=== PATIENT | female | born 1965 | race Caucasian/White ===

== ENCOUNTER 2021-12-12 14:57 | Emergency (ER) | payer MEDICARE ==
[~2021-12-12] VITALS: Ht 170.2 cm; Wt 90.7 kg
[2021-12-12] MEDS ORDERED: SODIUM CHLORIDE FLUSH 10 ML SYR IV PRN (15:15)
[2021-12-12 16:08] LABS: BASOPHILS % 0.5 % (0.0-1.0); EOSINOPHILS # (AUTO) 0.1 (0.0-0.4); HEMATOCRIT 33.6 % (34.2-44.1); HEMOGLOBIN 9.3 g/dL (12.0-16.0); LYMPHOCYTES # (AUTO) 0.7 (1.0-3.2); LYMPHOCYTES % 11.8 % (18.0-39.1); MEAN CORPUSCULAR HEMOGLOBIN 23.5 pg (28-32); MEAN CORPUSCULAR HGB CONC 27.7 g/dL (31-35); MEAN CORPUSCULAR VOLUME 85.1 fL (81-99); MONOCYTES # (AUTO) 0.3 (0.2-0.8); NEUTROPHILS # (AUTO) 4.5 (2.1-6.9); NEUTROPHILS % 80.3 % (38.7-80.0); PLATELET COUNT 268 x10e3/uL (140-360); RED BLOOD COUNT 3.95 x10e6/uL (3.6-5.1); RED CELL DISTRIBUTION WIDTH 18.4 % (11.7-14.4)
[2021-12-12 16:15] LABS: INR 1.05; PROTHROMBIN TIME 14.7 seconds (11.9-14.5)
[2021-12-12 16:16] LABS: PARTIAL THROMBOPLASTIN TIME 29.9 seconds (23.8-35.5)
[2021-12-12 16:22] LABS: ALBUMIN 2.6 g/dL (3.5-5.0); ANION GAP 15.5 mmol/L (8-16); CALCIUM 8.2 mg/dL (8.4-10.2); CREATININE, SERUM 2.11 mg/dL (0.57-1.11); POTASSIUM 3.5 mmol/L (3.5-5.1)
[2021-12-12 16:23] LABS: ALBUMIN/GLOBULIN RATIO 0.6 (0.8-2.0)
[2021-12-12 19:12] VITALS: BP 158/90
== END 2021-12-12 19:13 ==
LOC: ER 15:06
DX: R60.9 Edema, unspecified (principal); E11.65 Type 2 diabetes mellitus with hyperglycemia; I10 Essential (primary) hypertension; F41.9 Anxiety disorder, unspecified
CPT/HCPCS: 36415; 80053; 85025; 85610; 85730; 93931; 93971; 94760; 99284

== ENCOUNTER 2021-12-26 14:55 | Inpatient (IN) | payer MEDICARE ==
[~2021-12-26] VITALS: Ht 172.7 cm; Wt 121.1 kg
[2021-12-26] MEDS ORDERED: FUROSEMIDE INJ 10 MG/ML 4 ML VIAL IV ONE (15:15)
[2021-12-26] MEDS ORDERED: Vancomycin IV 1 GM in SODIUM CHLORIDE 0.9% 250ML 250 ML IV SCH (15:45)
[2021-12-26 16:10] LABS: BASOPHILS % 0.3 % (0.0-1.0); EOSINOPHILS # (AUTO) 0.1 (0.0-0.4); EOSINOPHILS % 1.8 % (0.0-6.0); HEMATOCRIT 28.8 % (34.2-44.1); HEMOGLOBIN 8.1 g/dL (12.0-16.0); LYMPHOCYTES # (AUTO) 0.6 (1.0-3.2); LYMPHOCYTES % 9.1 % (18.0-39.1); MEAN CORPUSCULAR HEMOGLOBIN 23.6 pg (28-32); MEAN CORPUSCULAR HGB CONC 28.1 g/dL (31-35); MONOCYTES # (AUTO) 0.4 (0.2-0.8); MONOCYTES % 5.8 % (4.4-11.3); NEUTROPHILS # (AUTO) 5.2 (2.1-6.9); NEUTROPHILS % 82.8 % (38.7-80.0); PLATELET COUNT 260 x10e3/uL (140-360); RED BLOOD COUNT 3.43 x10e6/uL (3.6-5.1); RED CELL DISTRIBUTION WIDTH 19.2 % (11.7-14.4)
[2021-12-26 16:19] LABS: INR 1.19; PROTHROMBIN TIME 16.1 seconds (11.9-14.5)
[2021-12-26 16:20] LABS: PARTIAL THROMBOPLASTIN TIME 31.5 seconds (23.8-35.5)
[2021-12-26 16:27] LABS: ALBUMIN 2.3 g/dL (3.5-5.0); ALBUMIN/GLOBULIN RATIO 0.5 (0.8-2.0); CALCIUM 8.5 mg/dL (8.4-10.2); CREATININE, SERUM 1.93 mg/dL (0.57-1.11)
[2021-12-26 17:05] LABS: CLARITY,URINE CLOUDY (CLEAR); COLOR,URINE YELLOW (YELLOW); KETONES,URINE NEGATIVE (NEGATIVE); LEUKOCYTE ESTERASE ,URINE LARGE (NEGATIVE); NITRITE,URINE NEGATIVE (NEGATIVE); PROTEIN,URINE DIPSTICK 2+ (NEGATIVE); URINE UROBILINOGEN 0.2 mg/dL (0.2 - 1)
[2021-12-26 17:07] LABS: AMORPHOUS SEDIMENT,URINE MODERATE (FEW); BACTERIA,URINE MANY /HPF; EPITHELIAL CELLS,URINE RARE /LPF
[2021-12-26] MEDS ORDERED: ONDANSETRON HCL INJ 2MG/ML 2ML 2 MG/ML VIAL IV PRN (18:00)
[2021-12-26] MEDS ORDERED: ACETAMINOPHEN 325 MG TAB PO PRN (18:30)
[2021-12-26] MEDS ORDERED: DEXTROSE 50% SYRINGE 50 ML IV PRN (18:30)
[2021-12-26] MEDS: LINEZOLID 600 MG/D5W 300ML 300 ML IV SCH (19:20)
[2021-12-26] MEDS: HEPARIN SOD (PORCINE) 5,000 UNIT/ML VIAL SC SCH (19:22)
[2021-12-26] MEDS: FUROSEMIDE INJ 10 MG/ML 4 ML VIAL IV SCH (20:55)
[2021-12-26] MEDS: INSULIN REGULAR, HUMAN 100 UNIT/1 ML SQ SCH (21:00)
[2021-12-27 06:28] LABS: BASOPHILS % 0.4 % (0.0-1.0); EOSINOPHILS # (AUTO) 0.1 (0.0-0.4); EOSINOPHILS % 1.8 % (0.0-6.0); HEMATOCRIT 28.8 % (34.2-44.1); HEMOGLOBIN 8.4 g/dL (12.0-16.0); LYMPHOCYTES # (AUTO) 0.6 (1.0-3.2); LYMPHOCYTES % 7.9 % (18.0-39.1); MEAN CORPUSCULAR HGB CONC 29.2 g/dL (31-35); MEAN CORPUSCULAR VOLUME 82.3 fL (81-99); MONOCYTES # (AUTO) 0.4 (0.2-0.8); MONOCYTES % 5.9 % (4.4-11.3); NEUTROPHILS % 83.7 % (38.7-80.0); PLATELET COUNT 266 x10e3/uL (140-360)
[2021-12-27 06:48] LABS: ALBUMIN 2.3 g/dL (3.5-5.0); ALBUMIN/GLOBULIN RATIO 0.5 (0.8-2.0); CALCIUM 8.5 mg/dL (8.4-10.2); CREATININE, SERUM 1.92 mg/dL (0.57-1.11)
[2021-12-27] MEDS: INSULIN REGULAR, HUMAN 100 UNIT/1 ML SQ SCH ×4 (07:30→21:00)
[2021-12-27] MEDS: FUROSEMIDE INJ 10 MG/ML 4 ML VIAL IV SCH ×2 (10:08→21:55)
[2021-12-27] MEDS: HEPARIN SOD (PORCINE) 5,000 UNIT/ML VIAL SC SCH ×2 (10:09→22:00)
[2021-12-27] MEDS: ALBUTEROL/IPRATROPIUM 3 ML NEB NEB PRN (11:12)
[2021-12-27 12:50] LABS: ANISOCYTOSIS MODERATE; HYPOCHROMASIA MODERATE; OVALOCYTES FEW; PLATELET ESTIMATE ADEQUATE; PLATELET MORPHOLOGY COMMENT FEW LARGE; RBC MORPHOLOGY COMMENT ABNORMAL
[2021-12-27] MEDS ORDERED: VELTASSA8.4 GM PO (17:24)
[2021-12-27] MEDS ORDERED: ELIQUIS2.5 MG PO (17:24)
[2021-12-27] MEDS ORDERED: LEVOTHYROXINE25 MC1 PO (17:24)
[2021-12-27] MEDS ORDERED: ATENOLOL50 MG PO (17:24)
[2021-12-27] MEDS: LINEZOLID 600 MG/D5W 300ML 300 ML IV SCH (18:24)
[2021-12-27 22:44] VITALS: BP 115/60
[2021-12-27 23:00] VITALS: BP_SYST 115; BP_SYST 118; BP_DIAS 60; BP_DIAS 61
[2021-12-28] VITALS (26 sets, daily range): BP systolic 76–129; BP diastolic 51–78
[2021-12-28] MEDS ORDERED: CLONAZEPAM1 MG PO (02:13)
[2021-12-28] MEDS ORDERED: CLOPIDOGREL75 MG PO (02:13)
[2021-12-28] MEDS ORDERED: METOPROLOL TART25 MG PO (02:13)
[2021-12-28] MEDS ORDERED: FUROSEMIDE40 MG PO (02:13)
[2021-12-28] MEDS ORDERED: ACIDOPHILUS1 EAC1 PO (02:13)
[2021-12-28] MEDS ORDERED: FEROSUL325 MG PO (02:13)
[2021-12-28] MEDS ORDERED: SERTRALINE HCL100 MG PO (02:13)
[2021-12-28] MEDS ORDERED: DIPHENHYDRAMINE25 MG PO (02:13)
[2021-12-28] MEDS ORDERED: SEROQUEL50 MG PO (02:13)
[2021-12-28] MEDS ORDERED: QUESTRAN PACKET4 GM PO (02:13)
[2021-12-28] MEDS ORDERED: NEURONTIN100 MG PO (02:13)
[2021-12-28] MEDS ORDERED: TYLENOL EXTRA500 MG PO (02:13)
[2021-12-28] MEDS ORDERED: ATORVASTATIN CA20 MG PO (02:13)
[2021-12-28] MEDS ORDERED: ULTRAM50 MG PO (02:13)
[2021-12-28] MEDS ORDERED: SODIUM BICARBO650 MG PO (02:13)
[2021-12-28] MEDS ORDERED: DOCUSATE SODIU100 MG PO (02:13)
[2021-12-28] MEDS: LINEZOLID 600 MG/D5W 300ML 300 ML IV SCH (06:16)
[2021-12-28] MEDS: INSULIN REGULAR, HUMAN 100 UNIT/1 ML SQ SCH ×4 (07:30→21:00)
[2021-12-28 07:42] LABS: ALBUMIN 2.3 g/dL (3.5-5.0); ALBUMIN/GLOBULIN RATIO 0.5 (0.8-2.0); ANION GAP 17.9 mmol/L (8-16); CALCIUM 8.8 mg/dL (8.4-10.2); CHOL/HDL RATIO 3.1 (3.0-3.6); CREATININE, SERUM 1.88 mg/dL (0.57-1.11); MAGNESIUM 1.7 MG/DL (1.3-2.1); POTASSIUM 3.9 mmol/L (3.5-5.1)
[2021-12-28] MEDS: FUROSEMIDE INJ 10 MG/ML 4 ML VIAL IV SCH ×3 (08:47→21:00)
[2021-12-28] MEDS: HEPARIN SOD (PORCINE) 5,000 UNIT/ML VIAL SC SCH ×2 (08:51→21:52)
[2021-12-28] MEDS: ALBUTEROL/IPRATROPIUM 3 ML NEB NEB PRN (11:25)
[2021-12-28] MEDS ORDERED: VANCOMYCIN HCL 125 MG CAPSULE PO SCH (12:00)
[2021-12-28] MEDS ORDERED: ACETAMINOPHEN 1000 MG/100 ML IV PRN (12:30)
[2021-12-28] MEDS ORDERED: FUROSEMIDE INJ 10 MG/ML 4 ML VIAL IV SCH (14:00)
[2021-12-28] MEDS: GABAPENTIN 100 MG CAP PO SCH ×2 (15:42→21:49)
[2021-12-28] MEDS: LACTOBACILLUS ACIDOPHILUS CAPSULE PO SCH ×2 (15:43→21:49)
[2021-12-28] MEDS: PANTOPRAZOLE SOD 40 MG TABEC PO SCH (15:43)
[2021-12-28] MEDS: SODIUM BICARBONATE 650 MG TAB PO SCH (17:50)
[2021-12-28] MEDS: CEFTRIAXONE 2 GM in SODIUM CHLORIDE 0.9% 100 ML IV SCH (17:50)
[2021-12-28] MEDS: CLONAZEPAM 1 MG TAB PO PRN (20:09)
[2021-12-28] MEDS: ONDANSETRON HCL INJ 2MG/ML 2ML 2 MG/ML VIAL IV PRN (21:37)
[2021-12-28] MEDS: ATORVASTATIN 40 MG TAB PO SCH (21:49)
[2021-12-28] MEDS: QUETIAPINE FUMARATE 25 MG TAB PO SCH (21:51)
[2021-12-28] MEDS: LOPERAMIDE HCL 2 MG CAP PO PRN (21:55)
[2021-12-29] VITALS (11 sets, daily range): BP systolic 92–133; BP diastolic 57–84
[2021-12-29 06:54] LABS: BASOPHILS % 0.5 % (0.0-1.0); EOSINOPHILS # (AUTO) 0.1 (0.0-0.4); EOSINOPHILS % 1.6 % (0.0-6.0); HEMATOCRIT 26.8 % (34.2-44.1); HEMOGLOBIN 7.5 g/dL (12.0-16.0); LYMPHOCYTES # (AUTO) 0.8 (1.0-3.2); LYMPHOCYTES % 12.9 % (18.0-39.1); MEAN CORPUSCULAR VOLUME 85.6 fL (81-99); MONOCYTES # (AUTO) 0.3 (0.2-0.8); MONOCYTES % 4.8 % (4.4-11.3); NEUTROPHILS # (AUTO) 5.1 (2.1-6.9); NEUTROPHILS % 79.7 % (38.7-80.0); PLATELET COUNT 282 x10e3/uL (140-360); RED BLOOD COUNT 3.13 x10e6/uL (3.6-5.1); RED CELL DISTRIBUTION WIDTH 18.9 % (11.7-14.4)
[2021-12-29 07:18] LABS: ANION GAP 19.7 mmol/L (8-16); CALCIUM 8.2 mg/dL (8.4-10.2); CREATININE, SERUM 2.03 mg/dL (0.57-1.11); POTASSIUM 3.7 mmol/L (3.5-5.1)
[2021-12-29] MEDS: INSULIN REGULAR, HUMAN 100 UNIT/1 ML SQ SCH ×4 (07:30→21:40)
[2021-12-29 08:51] LABS: ANISOCYTOSIS SLIG; HYPOCHROMASIA MODERATE; POIKILOCYTOSIS SLIGHT; RBC MORPHOLOGY COMMENT ABNORMAL
[2021-12-29 08:52] LABS: PLATELET ESTIMATE ADEQUATE; PLATELET MORPHOLOGY COMMENT NORMAL
[2021-12-29] MEDS: GABAPENTIN 100 MG CAP PO SCH ×3 (09:00→21:25)
[2021-12-29] MEDS: FUROSEMIDE INJ 10 MG/ML 4 ML VIAL IV SCH ×2 (09:00→21:38)
[2021-12-29] MEDS: HEPARIN SOD (PORCINE) 5,000 UNIT/ML VIAL SC SCH ×2 (09:00→21:38)
[2021-12-29] MEDS: CLOPIDOGREL BISULFATE 75 MG TAB PO SCH (09:13)
[2021-12-29] MEDS: LACTOBACILLUS ACIDOPHILUS CAPSULE PO SCH ×3 (09:13→21:25)
[2021-12-29] MEDS: SERTRALINE HCL 100 MG TAB PO SCH (09:13)
[2021-12-29] MEDS: PANTOPRAZOLE SOD 40 MG TABEC PO SCH (09:15)
[2021-12-29] MEDS: SODIUM BICARBONATE 650 MG TAB PO SCH ×2 (09:15→16:28)
[2021-12-29] MEDS: CEFTRIAXONE 2 GM in SODIUM CHLORIDE 0.9% 100 ML IV SCH (09:15)
[2021-12-29] MEDS ORDERED: SODIUM CHLORIDE 0.9% 250ML 250 ML ONE (09:42)
[2021-12-29] MEDS: LOPERAMIDE HCL 2 MG CAP PO PRN (10:45)
[2021-12-29] MEDS: ONDANSETRON HCL INJ 2MG/ML 2ML 2 MG/ML VIAL IV PRN (11:15)
[2021-12-29] MEDS: TRAMADOL HCL 50 MG TAB PO PRN ×2 (13:41→21:26)
[2021-12-29] MEDS: ATORVASTATIN 40 MG TAB PO SCH (21:25)
[2021-12-29] MEDS: QUETIAPINE FUMARATE 25 MG TAB PO SCH (21:27)
[2021-12-29] MEDS: CLONAZEPAM 1 MG TAB PO PRN (21:27)
[2021-12-30] VITALS (7 sets, daily range): BP systolic 103–112; BP diastolic 52–68
[2021-12-30] MEDS: INSULIN REGULAR, HUMAN 100 UNIT/1 ML SQ SCH ×4 (07:30→20:28)
[2021-12-30] MEDS: CEFTRIAXONE 2 GM in SODIUM CHLORIDE 0.9% 100 ML IV SCH (09:00)
[2021-12-30] MEDS: GABAPENTIN 100 MG CAP PO SCH ×3 (09:48→20:20)
[2021-12-30] MEDS: CLOPIDOGREL BISULFATE 75 MG TAB PO SCH (09:48)
[2021-12-30] MEDS: FUROSEMIDE INJ 10 MG/ML 4 ML VIAL IV SCH ×2 (09:48→20:24)
[2021-12-30] MEDS: PANTOPRAZOLE SOD 40 MG TABEC PO SCH (09:48)
[2021-12-30] MEDS: SODIUM BICARBONATE 650 MG TAB PO SCH ×2 (09:48→16:16)
[2021-12-30] MEDS: SERTRALINE HCL 100 MG TAB PO SCH (09:48)
[2021-12-30] MEDS: HEPARIN SOD (PORCINE) 5,000 UNIT/ML VIAL SC SCH ×2 (09:48→20:26)
[2021-12-30] MEDS: LACTOBACILLUS ACIDOPHILUS CAPSULE PO SCH ×4 (09:49→20:29)
[2021-12-30 10:30] LABS: BASOPHILS % 0.6 % (0.0-1.0); EOSINOPHILS # (AUTO) 0.1 (0.0-0.4); EOSINOPHILS % 2.3 % (0.0-6.0); HEMATOCRIT 28.4 % (34.2-44.1); LYMPHOCYTES # (AUTO) 0.6 (1.0-3.2); LYMPHOCYTES % 10.8 % (18.0-39.1); MEAN CORPUSCULAR HGB CONC 28.2 g/dL (31-35); MEAN CORPUSCULAR VOLUME 85.3 fL (81-99); MONOCYTES # (AUTO) 0.4 (0.2-0.8); MONOCYTES % 6.7 % (4.4-11.3); NEUTROPHILS # (AUTO) 4.1 (2.1-6.9); NEUTROPHILS % 79.4 % (38.7-80.0); PLATELET COUNT 265 x10e3/uL (140-360); RED BLOOD COUNT 3.33 x10e6/uL (3.6-5.1); RED CELL DISTRIBUTION WIDTH 18.9 % (11.7-14.4)
[2021-12-30 10:46] LABS: ANION GAP 15.5 mmol/L (8-16); CALCIUM 8.1 mg/dL (8.4-10.2); CREATININE, SERUM 2.18 mg/dL (0.57-1.11); POTASSIUM 3.5 mmol/L (3.5-5.1)
[2021-12-30] MEDS: ONDANSETRON HCL INJ 2MG/ML 2ML 2 MG/ML VIAL IV PRN ×2 (11:39→20:18)
[2021-12-30] MEDS: CLONAZEPAM 1 MG TAB PO PRN (20:18)
[2021-12-30] MEDS: ATORVASTATIN 40 MG TAB PO SCH (20:20)
[2021-12-30] MEDS: QUETIAPINE FUMARATE 25 MG TAB PO SCH (20:29)
[2021-12-31] VITALS (7 sets, daily range): BP systolic 109–135; BP diastolic 61–69
[2021-12-31] MEDS: PANTOPRAZOLE SOD 40 MG TABEC PO SCH (09:22)
[2021-12-31] MEDS: INSULIN REGULAR, HUMAN 100 UNIT/1 ML SQ SCH ×4 (09:23→21:12)
[2021-12-31] MEDS: CEFTRIAXONE 2 GM in SODIUM CHLORIDE 0.9% 100 ML IV SCH (09:23)
[2021-12-31] MEDS: FUROSEMIDE INJ 10 MG/ML 4 ML VIAL IV SCH (09:23)
[2021-12-31] MEDS: GABAPENTIN 100 MG CAP PO SCH ×3 (09:23→21:09)
[2021-12-31] MEDS: SERTRALINE HCL 100 MG TAB PO SCH (09:24)
[2021-12-31] MEDS: CLOPIDOGREL BISULFATE 75 MG TAB PO SCH (09:24)
[2021-12-31] MEDS: SODIUM BICARBONATE 650 MG TAB PO SCH ×2 (09:24→16:46)
[2021-12-31] MEDS: HEPARIN SOD (PORCINE) 5,000 UNIT/ML VIAL SC SCH ×2 (09:25→21:12)
[2021-12-31] MEDS: ONDANSETRON HCL INJ 2MG/ML 2ML 2 MG/ML VIAL IV PRN (10:42)
[2021-12-31] MEDS: FUROSEMIDE 40 MG TAB PO SCH (12:02)
[2021-12-31] MEDS ORDERED: HYDROCODONE/APAP 10MG-325MG TAB PO PRN (14:45)
[2021-12-31] MEDS: LACTOBACILLUS ACIDOPHILUS CAPSULE PO SCH ×2 (15:45→21:09)
[2021-12-31] MEDS: ATORVASTATIN 40 MG TAB PO SCH (21:09)
[2021-12-31] MEDS: QUETIAPINE FUMARATE 25 MG TAB PO SCH (21:10)
[2022-01-01] VITALS: BP 124/60
[2022-01-01 04:00] VITALS: BP 131/67
[2022-01-01 05:53] LABS: ANION GAP 14.3 mmol/L (8-16); CREATININE, SERUM 2.17 mg/dL (0.57-1.11); POTASSIUM 3.3 mmol/L (3.5-5.1)
[2022-01-01 05:57] LABS: BASOPHILS % 0.7 % (0.0-1.0); EOSINOPHILS # (AUTO) 0.1 (0.0-0.4); EOSINOPHILS % 3.1 % (0.0-6.0); HEMATOCRIT 29.6 % (34.2-44.1); HEMOGLOBIN 8.6 g/dL (12.0-16.0); LYMPHOCYTES # (AUTO) 0.6 (1.0-3.2); MEAN CORPUSCULAR HEMOGLOBIN 24.4 pg (28-32); MEAN CORPUSCULAR HGB CONC 29.1 g/dL (31-35); MEAN CORPUSCULAR VOLUME 83.9 fL (81-99); MONOCYTES # (AUTO) 0.3 (0.2-0.8); MONOCYTES % 5.9 % (4.4-11.3); NEUTROPHILS # (AUTO) 3.5 (2.1-6.9); NEUTROPHILS % 75.6 % (38.7-80.0); PLATELET COUNT 253 x10e3/uL (140-360); RED BLOOD COUNT 3.53 x10e6/uL (3.6-5.1); RED CELL DISTRIBUTION WIDTH 18.9 % (11.7-14.4)
[2022-01-01 07:51] VITALS: BP 138/79
[2022-01-01] MEDS: SODIUM BICARBONATE 650 MG TAB PO SCH (09:12)
[2022-01-01] MEDS: SERTRALINE HCL 100 MG TAB PO SCH (09:13)
[2022-01-01] MEDS: CLOPIDOGREL BISULFATE 75 MG TAB PO SCH (09:13)
[2022-01-01] MEDS: PANTOPRAZOLE SOD 40 MG TABEC PO SCH (09:13)
[2022-01-01] MEDS: LACTOBACILLUS ACIDOPHILUS CAPSULE PO SCH (09:13)
[2022-01-01] MEDS: GABAPENTIN 100 MG CAP PO SCH (09:13)
[2022-01-01] MEDS: FUROSEMIDE 40 MG TAB PO SCH (09:14)
[2022-01-01] MEDS: HEPARIN SOD (PORCINE) 5,000 UNIT/ML VIAL SC SCH (09:20)
[2022-01-01] MEDS: INSULIN REGULAR, HUMAN 100 UNIT/1 ML SQ SCH ×2 (09:21→11:54)
[2022-01-01] MEDS: CEFTRIAXONE 2 GM in SODIUM CHLORIDE 0.9% 100 ML IV SCH (09:30)
[2022-01-01] MEDS ORDERED: POTASSIUM CHLORIDE 10MEQ EA PO ONE (09:45)
[2022-01-01] MEDS ORDERED: METOPROLOL SUCCINATE 25 MG TAB XL PO SCH (10:30)
[2022-01-01] MEDS ORDERED: MAGNESIUM SULFATE 2GM/50ML 50 ML IV ONE (10:30)
[2022-01-01] MEDS: LOPERAMIDE HCL 2 MG CAP PO PRN (10:45)
[2022-01-01 11:37] VITALS: BP 123/71
[2022-01-01 12:28] VITALS: BP 123/71
== END 2022-01-01 15:09 | DRG 698 ==
LOC: ER 14:59 → ERHOLD 18:07 → ICU 12-27 22:34 → MED/SURG2 12-29 02:49
PROVIDERS: ADMIT Internal Medicine; ATTEND Internal Medicine
PROC: 02HV33Z Insertion of Infusion Device into Superior Vena Cava, Percutaneous Approach (ICD-10-PCS; principal; 2021-12-26)
PROC: 3E04329 Introduction of Other Anti-infective into Central Vein, Percutaneous Approach (ICD-10-PCS; 2021-12-26)
PROC: 5A09357 Assistance with Respiratory Ventilation, Less than 24 Consecutive Hours, Continuous Positive Airway Pressure (ICD-10-PCS; 2021-12-26)
DX: T83.518A Infection and inflammatory reaction due to other urinary catheter, initial encounter (principal); A41.59 Other Gram-negative sepsis; G93.41 Metabolic encephalopathy; I50.33 Acute on chronic diastolic (congestive) heart failure; J18.9 Pneumonia, unspecified organism; J96.21 Acute and chronic respiratory failure with hypoxia; Z68.41 Body mass index [BMI] 40.0-44.9, adult; L97.428 Non-pressure chronic ulcer of left heel and midfoot with other specified severity; L97.418 Non-pressure chronic ulcer of right heel and midfoot with other specified severity; N18.4 Chronic kidney disease, stage 4 (severe); I73.9 Peripheral vascular disease, unspecified; I25.10 Atherosclerotic heart disease of native coronary artery without angina pectoris; Z95.5 Presence of coronary angioplasty implant and graft; I12.9 Hypertensive chronic kidney disease with stage 1 through stage 4 chronic kidney disease, or unspecified chronic kidney disease; E11.22 Type 2 diabetes mellitus with diabetic chronic kidney disease; L89.159 Pressure ulcer of sacral region, unspecified stage; R33.9 Retention of urine, unspecified; E66.01 Morbid (severe) obesity due to excess calories; E11.40 Type 2 diabetes mellitus with diabetic neuropathy, unspecified; Z89.412 Acquired absence of left great toe; Z88.1 Allergy status to other antibiotic agents; Z88.5 Allergy status to narcotic agent; Y95 Nosocomial condition; F01.50 Vascular dementia, unspecified severity, without behavioral disturbance, psychotic disturbance, mood disturbance, and anxiety; E11.621 Type 2 diabetes mellitus with foot ulcer; I05.0 Rheumatic mitral stenosis; F32.A Depression, unspecified; F41.9 Anxiety disorder, unspecified; R62.7 Adult failure to thrive
CPT/HCPCS: 36415; 36569; 36600; 51700; 71045; 71250; 74176; 80048; 80053; 80061; 81001; 82948; 83605; 83735; 83880; 85025; 85610; 85730; 87040; 87086; 87186; 93005; 93306; 94640; 94660; 94799; 99251; 99284; J0696; J1644; J1817; J1940; J2020; J2185; J2405; J2543; J3370; J3475; J7050; J7799

== ENCOUNTER 2022-05-27 16:02 | Inpatient (IN) | payer MEDICARE ==
[~2022-05-27] VITALS: Ht 172.7 cm; Wt 115.7 kg
[~2022-05-27 16:02] MED LIST: ACIDOPHILUS1 EAC1 PO; ATENOLOL50 MG PO; ATORVASTATIN CA20 MG PO; CLONAZEPAM1 MG PO; CLOPIDOGREL75 MG PO; DIPHENHYDRAMINE25 MG PO; DOCUSATE SODIU100 MG PO; ELIQUIS2.5 MG PO; FEROSUL325 MG PO; FUROSEMIDE40 MG PO; LEVOTHYROXINE25 MC1 PO; METOPROLOL TART25 MG PO; NEURONTIN100 MG PO; QUESTRAN PACKET4 GM PO; SEROQUEL50 MG PO; SERTRALINE HCL100 MG PO; SODIUM BICARBO650 MG PO; TYLENOL EXTRA500 MG PO; ULTRAM50 MG PO; VELTASSA8.4 GM PO
[2022-05-27] MEDS ORDERED: BUMETANIDE INJ 0.25MG/ML 4ML VIAL IV ONE (16:30)
[2022-05-27 17:30] LABS: BASOPHILS % 0.6 % (0.0-1.0); EOSINOPHILS # (AUTO) 0.1 (0.0-0.4); EOSINOPHILS % 1.3 % (0.0-6.0); HEMATOCRIT 33.4 % (34.2-44.1); LYMPHOCYTES # (AUTO) 0.8 (1.0-3.2); MEAN CORPUSCULAR HEMOGLOBIN 25.3 pg (28-32); MEAN CORPUSCULAR HGB CONC 26.9 g/dL (31-35); MEAN CORPUSCULAR VOLUME 93.8 fL (81-99); MONOCYTES # (AUTO) 0.4 (0.2-0.8); MONOCYTES % 6.2 % (4.4-11.3); NEUTROPHILS # (AUTO) 5.6 (2.1-6.9); NEUTROPHILS % 80.6 % (38.7-80.0); PLATELET COUNT 297 x10e3/uL (140-360); RED BLOOD COUNT 3.56 x10e6/uL (3.6-5.1); RED CELL DISTRIBUTION WIDTH 16.7 % (11.7-14.4)
[2022-05-27 17:47] LABS: ALBUMIN 2.5 g/dL (3.5-5.0); ALBUMIN/GLOBULIN RATIO 0.5 (0.8-2.0); ALKALINE PHOSPHATASE 81 IU/L (40-150); ANION GAP 12.8 mmol/L (8-16); BLOOD UREA NITROGEN 68 mg/dL (7-26); BUN/CREATININE RATIO 34 (6-25); CALCIUM 8.2 mg/dL (8.4-10.2); CARBON DIOXIDE 30 mmol/L (22-29); CHLORIDE 98 mmol/L (98-107); CREATININE, SERUM 2.02 mg/dL (0.57-1.11); GLUCOSE 127 mg/dL (74-118); POTASSIUM 4.8 mmol/L (3.5-5.1); SODIUM 136 mmol/L (136-145)
[2022-05-27 17:49] LABS: ALANINE AMINOTRANSFERASE < 6 IU/L (0-55)
[2022-05-27] MEDS ORDERED: ONDANSETRON HCL INJ 2MG/ML 2ML 2 MG/ML VIAL IV PRN (18:30)
[2022-05-27] MEDS ORDERED: SODIUM CHLORIDE FLUSH 10 ML SYR INJ PRN (18:30)
[2022-05-27 20:39] LABS: CREATINE KINASE MB 2.5 ng/mL (0-5.0)
[2022-05-27 23:00] VITALS: BP_SYST 121; BP_DIAS 49; BP_DIAS 69
[2022-05-28] VITALS (8 sets, daily range): BP systolic 102–125; BP diastolic 49–79
[2022-05-28] MEDS ORDERED: METOPROLOL TARTRATE 25 MG TAB PO SCH (00:15)
[2022-05-28] MEDS: QUETIAPINE FUMARATE 25 MG TAB PO SCH ×2 (00:15→21:20)
[2022-05-28] MEDS: GABAPENTIN 100 MG CAP PO SCH ×4 (00:15→21:17)
[2022-05-28] MEDS: CLONAZEPAM 1 MG TAB PO SCH ×3 (00:15→21:17)
[2022-05-28] MEDS: ATORVASTATIN 40 MG TAB PO SCH ×2 (00:15→21:17)
[2022-05-28] MEDS ORDERED: ACETAMINOPHEN 325 MG TAB PO PRN (00:30)
[2022-05-28] MEDS ORDERED: BENZONATATE 100 MG CAP PO PRN (00:45)
[2022-05-28] MEDS: BENZONATATE 100 MG CAP PO PRN ×3 (01:01→21:28)
[2022-05-28] MEDS ORDERED: IPRATROPIUM BROMIDE 0.02% 2.5 ML NEB NEB PRN (01:15)
[2022-05-28] MEDS: ALBUTEROL/IPRATROPIUM 3 ML NEB NEB PRN ×2 (02:05→19:45)
[2022-05-28 05:49] LABS: BASOPHILS # (AUTO) 0.1 (0.0-0.1); BASOPHILS % 0.8 % (0.0-1.0); EOSINOPHILS # (AUTO) 0.1 (0.0-0.4); EOSINOPHILS % 1.6 % (0.0-6.0); HEMATOCRIT 29.8 % (34.2-44.1); HEMOGLOBIN 8.9 g/dL (12.0-16.0); LYMPHOCYTES # (AUTO) 0.9 (1.0-3.2); LYMPHOCYTES % 12.2 % (18.0-39.1); MEAN CORPUSCULAR HGB CONC 29.9 g/dL (31-35); MONOCYTES # (AUTO) 0.5 (0.2-0.8); MONOCYTES % 6.1 % (4.4-11.3); NEUTROPHILS # (AUTO) 6.1 (2.1-6.9); NEUTROPHILS % 78.8 % (38.7-80.0); PLATELET COUNT 300 x10e3/uL (140-360); RED BLOOD COUNT 3.42 x10e6/uL (3.6-5.1); RED CELL DISTRIBUTION WIDTH 16.5 % (11.7-14.4)
[2022-05-28 06:02] LABS: MEAN CORPUSCULAR VOLUME 87.1 fL (81-99)
[2022-05-28 06:11] LABS: ANION GAP 13.7 mmol/L (8-16); CALCIUM 8.5 mg/dL (8.4-10.2); CREATININE, SERUM 2.01 mg/dL (0.57-1.11); POTASSIUM 4.7 mmol/L (3.5-5.1)
[2022-05-28 06:44] LABS: CREATINE KINASE MB 1.9 ng/mL (0-5.0)
[2022-05-28] MEDS ORDERED: FUROSEMIDE INJ 10 MG/ML 4 ML VIAL IV SCH (09:30)
[2022-05-28] MEDS: ACETAMINOPHEN/CODEINE 300MG - 30MG TAB PO PRN ×2 (10:15→21:28)
[2022-05-28] MEDS: CLOPIDOGREL BISULFATE 75 MG TAB PO SCH (10:15)
[2022-05-28] MEDS: SERTRALINE HCL 100 MG TAB PO SCH (10:16)
[2022-05-28] MEDS: METOPROLOL TARTRATE 25 MG TAB PO SCH ×2 (10:16→16:59)
[2022-05-28] MEDS: BUMETANIDE INJ 0.25MG/ML 4ML VIAL IV SCH ×2 (12:39→21:17)
[2022-05-28] MEDS: ENOXAPARIN SOD INJ 40 MG/0.4 ML SYR SC SCH (16:59)
[2022-05-29] VITALS (7 sets, daily range): BP systolic 104–126; BP diastolic 57–72
[2022-05-29] MEDS: ALBUTEROL/IPRATROPIUM 3 ML NEB NEB PRN ×4 (02:15→19:15)
[2022-05-29 05:29] LABS: BASOPHILS % 0.6 % (0.0-1.0); EOSINOPHILS # (AUTO) 0.2 (0.0-0.4); EOSINOPHILS % 3.3 % (0.0-6.0); HEMATOCRIT 28.8 % (34.2-44.1); HEMOGLOBIN 8.3 g/dL (12.0-16.0); LYMPHOCYTES % 17.9 % (18.0-39.1); MEAN CORPUSCULAR HEMOGLOBIN 25.5 pg (28-32); MEAN CORPUSCULAR HGB CONC 28.8 g/dL (31-35); MEAN CORPUSCULAR VOLUME 88.6 fL (81-99); MONOCYTES # (AUTO) 0.4 (0.2-0.8); MONOCYTES % 7.2 % (4.4-11.3); NEUTROPHILS # (AUTO) 3.8 (2.1-6.9); NEUTROPHILS % 70.6 % (38.7-80.0); PLATELET COUNT 278 x10e3/uL (140-360); RED BLOOD COUNT 3.25 x10e6/uL (3.6-5.1); RED CELL DISTRIBUTION WIDTH 16.4 % (11.7-14.4)
[2022-05-29 05:54] LABS: ANION GAP 12.6 mmol/L (8-16); CALCIUM 8.5 mg/dL (8.4-10.2); CREATININE, SERUM 2.13 mg/dL (0.57-1.11); POTASSIUM 4.6 mmol/L (3.5-5.1)
[2022-05-29] MEDS: BUMETANIDE INJ 0.25MG/ML 4ML VIAL IV SCH ×3 (05:54→21:10)
[2022-05-29] MEDS: BALSAM PERU/CASTOR OIL 60 GM OINT...G. TP SCH (08:41)
[2022-05-29] MEDS: SERTRALINE HCL 100 MG TAB PO SCH (08:42)
[2022-05-29] MEDS: CLOPIDOGREL BISULFATE 75 MG TAB PO SCH (08:42)
[2022-05-29] MEDS: CLONAZEPAM 1 MG TAB PO SCH ×2 (08:42→21:10)
[2022-05-29] MEDS: GABAPENTIN 100 MG CAP PO SCH ×3 (08:42→21:10)
[2022-05-29] MEDS: METOPROLOL TARTRATE 25 MG TAB PO SCH ×2 (08:42→17:00)
[2022-05-29] MEDS: ACETAMINOPHEN/CODEINE 300MG - 30MG TAB PO PRN ×2 (13:23→21:16)
[2022-05-29] MEDS: BENZONATATE 100 MG CAP PO PRN ×2 (13:23→21:15)
[2022-05-29] MEDS ORDERED: ONDANSETRON HCL 4 MG ORAL DISINTEGRATING TAB PO PRN (13:45)
[2022-05-29] MEDS: ENOXAPARIN SOD INJ 40 MG/0.4 ML SYR SC SCH (17:20)
[2022-05-29] MEDS: QUETIAPINE FUMARATE 25 MG TAB PO SCH (21:09)
[2022-05-29] MEDS: ATORVASTATIN 40 MG TAB PO SCH (21:09)
[2022-05-30 01:37] VITALS: BP 115/61
[2022-05-30] MEDS: BENZONATATE 100 MG CAP PO PRN ×2 (05:10→11:50)
[2022-05-30] MEDS: ACETAMINOPHEN/CODEINE 300MG - 30MG TAB PO PRN ×2 (05:10→11:50)
[2022-05-30 06:03] VITALS: BP 103/61
[2022-05-30 06:11] LABS: BASOPHILS # (AUTO) 0.1 (0.0-0.1); EOSINOPHILS # (AUTO) 0.1 (0.0-0.4); EOSINOPHILS % 2.5 % (0.0-6.0); HEMATOCRIT 28.1 % (34.2-44.1); HEMOGLOBIN 8.2 g/dL (12.0-16.0); LYMPHOCYTES % 20.5 % (18.0-39.1); MEAN CORPUSCULAR HEMOGLOBIN 25.8 pg (28-32); MEAN CORPUSCULAR HGB CONC 29.2 g/dL (31-35); MEAN CORPUSCULAR VOLUME 88.4 fL (81-99); MONOCYTES # (AUTO) 0.3 (0.2-0.8); MONOCYTES % 6.8 % (4.4-11.3); NEUTROPHILS # (AUTO) 3.3 (2.1-6.9); NEUTROPHILS % 68.8 % (38.7-80.0); PLATELET COUNT 257 x10e3/uL (140-360); RED BLOOD COUNT 3.18 x10e6/uL (3.6-5.1); RED CELL DISTRIBUTION WIDTH 16.4 % (11.7-14.4)
[2022-05-30] MEDS: BUMETANIDE INJ 0.25MG/ML 4ML VIAL IV SCH ×2 (06:23→14:09)
[2022-05-30 06:32] LABS: ANION GAP 11.1 mmol/L (8-16); CALCIUM 8.1 mg/dL (8.4-10.2); CREATININE, SERUM 2.04 mg/dL (0.57-1.11); POTASSIUM 4.1 mmol/L (3.5-5.1)
[2022-05-30] MEDS: ALBUTEROL/IPRATROPIUM 3 ML NEB NEB PRN ×2 (07:25→13:50)
[2022-05-30 08:06] VITALS: BP 107/55
[2022-05-30 09:00] VITALS: BP 107/55
[2022-05-30] MEDS: SERTRALINE HCL 100 MG TAB PO SCH (09:34)
[2022-05-30] MEDS: CLOPIDOGREL BISULFATE 75 MG TAB PO SCH (09:34)
[2022-05-30] MEDS: GABAPENTIN 100 MG CAP PO SCH ×2 (09:34→14:12)
[2022-05-30] MEDS: CLONAZEPAM 1 MG TAB PO SCH (09:34)
[2022-05-30] MEDS: METOPROLOL TARTRATE 25 MG TAB PO SCH ×2 (09:35→16:57)
[2022-05-30] MEDS: BALSAM PERU/CASTOR OIL 60 GM OINT...G. TP SCH (09:37)
[2022-05-30 11:20] VITALS: BP 109/64
[2022-05-30 15:21] VITALS: BP 110/77
[2022-05-30] MEDS: ENOXAPARIN SOD INJ 40 MG/0.4 ML SYR SC SCH (17:00)
== END 2022-05-30 17:52 | DRG 291 ==
LOC: ER 16:31 → ERHOLD 18:27 → MED/SURG2 22:42
PROVIDERS: ADMIT Internal Medicine; ATTEND Internal Medicine
DX: I13.0 Hypertensive heart and chronic kidney disease with heart failure and stage 1 through stage 4 chronic kidney disease, or unspecified chronic kidney disease (principal); I50.43 Acute on chronic combined systolic (congestive) and diastolic (congestive) heart failure; J96.21 Acute and chronic respiratory failure with hypoxia; J44.1 Chronic obstructive pulmonary disease with (acute) exacerbation; E66.01 Morbid (severe) obesity due to excess calories; E11.22 Type 2 diabetes mellitus with diabetic chronic kidney disease; E78.5 Hyperlipidemia, unspecified; D63.1 Anemia in chronic kidney disease; E11.51 Type 2 diabetes mellitus with diabetic peripheral angiopathy without gangrene; E11.40 Type 2 diabetes mellitus with diabetic neuropathy, unspecified; F41.9 Anxiety disorder, unspecified; F32.A Depression, unspecified; N18.30 Chronic kidney disease, stage 3 unspecified; E11.621 Type 2 diabetes mellitus with foot ulcer; L97.529 Non-pressure chronic ulcer of other part of left foot with unspecified severity; L97.519 Non-pressure chronic ulcer of other part of right foot with unspecified severity; I95.89 Other hypotension; I25.10 Atherosclerotic heart disease of native coronary artery without angina pectoris; Z99.81 Dependence on supplemental oxygen; Z90.49 Acquired absence of other specified parts of digestive tract; Z88.2 Allergy status to sulfonamides; Z74.01 Bed confinement status; Z20.822 Contact with and (suspected) exposure to COVID-19; Z95.5 Presence of coronary angioplasty implant and graft; Z87.891 Personal history of nicotine dependence; Z99.3 Dependence on wheelchair
CPT/HCPCS: 36415; 71045; 71250; 80048; 80053; 82550; 82553; 82948; 83880; 84484; 85025; 93005; 93306; 94640; 94799; 99252; 99285; J1650; J1940

== ENCOUNTER 2022-07-11 09:34 | Inpatient (IN) | payer MEDICARE ==
[~2022-07-11] VITALS: Ht 167.6 cm; Wt 115.7 kg
[2022-07-11 10:57] LABS: BASOPHILS # (AUTO) 0.1 (0.0-0.1); BASOPHILS % 0.8 % (0.0-1.0); EOSINOPHILS # (AUTO) 0.1 (0.0-0.4); EOSINOPHILS % 1.5 % (0.0-6.0); HEMATOCRIT 31.5 % (34.2-44.1); LYMPHOCYTES # (AUTO) 0.7 (1.0-3.2); LYMPHOCYTES % 9.8 % (18.0-39.1); MEAN CORPUSCULAR HEMOGLOBIN 24.8 pg (28-32); MEAN CORPUSCULAR HGB CONC 28.6 g/dL (31-35); MEAN CORPUSCULAR VOLUME 86.8 fL (81-99); MONOCYTES # (AUTO) 0.5 (0.2-0.8); MONOCYTES % 6.5 % (4.4-11.3); NEUTROPHILS % 80.9 % (38.7-80.0); PLATELET COUNT 206 x10e3/uL (140-360); RED BLOOD COUNT 3.63 x10e6/uL (3.6-5.1); RED CELL DISTRIBUTION WIDTH 17.3 % (11.7-14.4)
[2022-07-11 11:04] LABS: INR 1.18; PROTHROMBIN TIME 15.5 seconds (11.9-14.5)
[2022-07-11 11:06] LABS: PARTIAL THROMBOPLASTIN TIME 30.7 seconds (23.8-35.5)
[2022-07-11 11:12] LABS: ALBUMIN 2.8 g/dL (3.5-5.0); ALBUMIN/GLOBULIN RATIO 0.6 (0.8-2.0); ANION GAP 17.1 mmol/L (8-16); CREATININE, SERUM 1.73 mg/dL (0.57-1.11); MAGNESIUM 1.8 MG/DL (1.3-2.1); POTASSIUM 4.1 mmol/L (3.5-5.1)
[2022-07-11 11:18] LABS: CREATINE KINASE MB 1.5 ng/mL (0-5.0)
[2022-07-11] MEDS ORDERED: PIPERACILLIN/TAZOBACTAM SOD 2.25 GM VIAL ONE (11:52)
[2022-07-11] MEDS ORDERED: SODIUM CHLORIDE 0.9% 250ML 250 ML ONE ×2 (11:53→22:02)
[2022-07-11] MEDS: Doxycycline IV 100 MG in SODIUM CHLORIDE 0.9% 100 ML IV SCH ×3 (12:00→21:04)
[2022-07-11] MEDS ORDERED: FUROSEMIDE INJ 10 MG/ML 4 ML VIAL IV ONE (12:00)
[2022-07-11] MEDS: IPRATROPIUM BROMIDE 0.02% 2.5 ML NEB NEB PRN ×3 (12:30→20:22)
[2022-07-11] MEDS ORDERED: ALBUTEROL/IPRATROPIUM 3 ML NEB NEB ONE ×2 (12:30→13:00)
[2022-07-11] MEDS: ALBUTEROL SULF 0.083% NEB SOLN 3 ML NEB NEB PRN ×3 (12:30→20:22)
[2022-07-11] MEDS ORDERED: ALBUTEROL/IPRATROPIUM 3 ML NEB NEB PRN (12:30)
[2022-07-11] MEDS ORDERED: ALBUTEROL SULF 0.083% NEB SOLN 3 ML NEB ONE (12:48)
[2022-07-11] MEDS ORDERED: IPRATROPIUM BROMIDE 0.02% 2.5 ML NEB ONE (12:49)
[2022-07-11] MEDS ORDERED: IPRATROPIUM BROMIDE 0.02% 2.5 ML NEB NEB ONE (13:00)
[2022-07-11] MEDS ORDERED: ALBUTEROL SULF 0.083% NEB SOLN 3 ML NEB NEB ONE (13:00)
[2022-07-11 14:15] LABS: CLARITY,URINE SL CLOUDY (CLEAR); COLOR,URINE YELLOW (YELLOW); LEUKOCYTE ESTERASE ,URINE SMALL (NEGATIVE); NITRITE,URINE NEGATIVE (NEGATIVE); PROTEIN,URINE DIPSTICK >=300 (NEGATIVE)
[2022-07-11 14:16] LABS: KETONES,URINE NEGATIVE (NEGATIVE); URINE UROBILINOGEN 0.2 mg/dL (0.2 - 1)
[2022-07-11 14:18] LABS: BACTERIA,URINE MODERATE /HPF; EPITHELIAL CELLS,URINE MODERATE /LPF; MUCUS,URINE FEW (RARE); RBC,URINE 0-5 /HPF (0-5); WBC,URINE (MAN) >50 /HPF (0-5)
[2022-07-11] MEDS: FUROSEMIDE INJ 10 MG/ML 2 ML VIAL IV SCH (18:32)
[2022-07-11 18:42] VITALS: BP 122/81
[2022-07-11 19:07] LABS: CREATINE KINASE MB 1.5 ng/mL (0-5.0)
[2022-07-11 20:22] VITALS: BP 108/72
[2022-07-11] MEDS: ATORVASTATIN 20 MG TAB PO SCH (21:02)
[2022-07-11] MEDS: ACETAMINOPHEN 325 MG TAB PO PRN (23:15)
[2022-07-11] MEDS: BENZONATATE 100 MG CAP PO PRN (23:15)
[2022-07-12] VITALS (8 sets, daily range): BP systolic 102–129; BP diastolic 45–87
[2022-07-12] MEDS: IPRATROPIUM BROMIDE 0.02% 2.5 ML NEB NEB PRN ×3 (01:00→21:45)
[2022-07-12] MEDS: ALBUTEROL SULF 0.083% NEB SOLN 3 ML NEB NEB PRN ×3 (01:00→21:45)
[2022-07-12 06:56] LABS: BASOPHILS # (AUTO) 0.1 (0.0-0.1); BASOPHILS % 0.7 % (0.0-1.0); EOSINOPHILS # (AUTO) 0.1 (0.0-0.4); EOSINOPHILS % 1.4 % (0.0-6.0); HEMATOCRIT 31.2 % (34.2-44.1); HEMOGLOBIN 8.9 g/dL (12.0-16.0); LYMPHOCYTES % 10.9 % (18.0-39.1); MEAN CORPUSCULAR HEMOGLOBIN 25.1 pg (28-32); MEAN CORPUSCULAR HGB CONC 28.5 g/dL (31-35); MEAN CORPUSCULAR VOLUME 88.1 fL (81-99); MONOCYTES # (AUTO) 0.7 (0.2-0.8); MONOCYTES % 7.5 % (4.4-11.3); NEUTROPHILS # (AUTO) 7.1 (2.1-6.9); NEUTROPHILS % 79.1 % (38.7-80.0); PLATELET COUNT 198 x10e3/uL (140-360); RED BLOOD COUNT 3.54 x10e6/uL (3.6-5.1); RED CELL DISTRIBUTION WIDTH 17.7 % (11.7-14.4)
[2022-07-12 07:19] LABS: ALBUMIN 2.6 g/dL (3.5-5.0); ALBUMIN/GLOBULIN RATIO 0.6 (0.8-2.0); CALCIUM 8.8 mg/dL (8.4-10.2); CHOL/HDL RATIO 2.2 (3.0-3.6); CREATININE, SERUM 1.8 mg/dL (0.57-1.11)
[2022-07-12 08:47] LABS: CREATINE KINASE MB 1.8 ng/mL (0-5.0)
[2022-07-12] MEDS: Doxycycline IV 100 MG in SODIUM CHLORIDE 0.9% 100 ML IV SCH ×2 (09:58→21:24)
[2022-07-12] MEDS: FUROSEMIDE INJ 10 MG/ML 2 ML VIAL IV SCH ×2 (09:58→17:15)
[2022-07-12] MEDS: ASPIRIN 81 MG ENTERIC COATED PO SCH (09:59)
[2022-07-12] MEDS: BENZONATATE 100 MG CAP PO PRN ×2 (12:56→21:27)
[2022-07-12 17:28] LABS: ANION GAP 16.7 mmol/L (8-16); CALCIUM 8.8 mg/dL (8.4-10.2); CREATININE, SERUM 1.92 mg/dL (0.57-1.11); POTASSIUM 4.7 mmol/L (3.5-5.1)
[2022-07-12 17:54] LABS: CREATINE KINASE MB 1.8 ng/mL (0-5.0)
[2022-07-12] MEDS ORDERED: ONDANSETRON HCL INJ 2MG/ML 2ML 2 MG/ML VIAL IV PRN (20:15)
[2022-07-12] MEDS ORDERED: DEXTROSE 50% SYRINGE 50 ML IV PRN (20:15)
[2022-07-12] MEDS: QUETIAPINE FUMARATE 25 MG TAB PO SCH (21:24)
[2022-07-12] MEDS: ATORVASTATIN 20 MG TAB PO SCH (21:24)
[2022-07-12] MEDS: GABAPENTIN 100 MG CAP PO SCH (21:24)
[2022-07-12] MEDS: ACETAMINOPHEN/CODEINE 300MG - 30MG TAB PO PRN (21:25)
[2022-07-12] MEDS: INSULIN LISPRO 100 UNIT/1 ML 3ML VIAL SQ SCH (22:46)
[2022-07-13] VITALS (7 sets, daily range): BP systolic 107–128; BP diastolic 65–78
[2022-07-13] MEDS: ACETAMINOPHEN/CODEINE 300MG - 30MG TAB PO PRN ×2 (07:09→18:22)
[2022-07-13] MEDS: BENZONATATE 100 MG CAP PO PRN ×3 (07:09→21:51)
[2022-07-13] MEDS: ASPIRIN 81 MG ENTERIC COATED PO SCH ×2 (09:00→09:17)
[2022-07-13] MEDS: FUROSEMIDE INJ 10 MG/ML 2 ML VIAL IV SCH (09:17)
[2022-07-13] MEDS: INSULIN LISPRO 100 UNIT/1 ML 3ML VIAL SQ SCH ×4 (09:17→22:18)
[2022-07-13] MEDS: CLOPIDOGREL BISULFATE 75 MG TAB PO SCH (09:18)
[2022-07-13] MEDS: ASCORBIC ACID 500 MG TAB PO SCH (09:18)
[2022-07-13] MEDS: METOPROLOL TARTRATE 25 MG TAB PO SCH ×2 (09:18→16:48)
[2022-07-13] MEDS: GABAPENTIN 100 MG CAP PO SCH ×3 (09:18→21:51)
[2022-07-13] MEDS: POTASSIUM CHLORIDE 20 MEQ TAB CR PO SCH (09:18)
[2022-07-13] MEDS: Doxycycline IV 100 MG in SODIUM CHLORIDE 0.9% 100 ML IV SCH ×2 (09:19→21:52)
[2022-07-13] MEDS: THIAMINE HCL 100 MG TAB PO SCH (09:31)
[2022-07-13] MEDS: ALBUTEROL SULF 0.083% NEB SOLN 3 ML NEB NEB PRN ×2 (12:15→19:48)
[2022-07-13] MEDS: IPRATROPIUM BROMIDE 0.02% 2.5 ML NEB NEB PRN ×2 (12:15→19:48)
[2022-07-13] MEDS: ATORVASTATIN 20 MG TAB PO SCH (21:51)
[2022-07-13] MEDS: QUETIAPINE FUMARATE 25 MG TAB PO SCH (21:51)
[2022-07-13] MEDS: FUROSEMIDE INJ 10 MG/ML 4 ML VIAL IV SCH (21:52)
[2022-07-14] VITALS (7 sets, daily range): BP systolic 98–134; BP diastolic 55–75
[2022-07-14] MEDS: ALBUTEROL SULF 0.083% NEB SOLN 3 ML NEB NEB PRN ×3 (01:10→19:45)
[2022-07-14] MEDS: ACETAMINOPHEN/CODEINE 300MG - 30MG TAB PO PRN ×2 (06:42→20:55)
[2022-07-14] MEDS: IPRATROPIUM BROMIDE 0.02% 2.5 ML NEB NEB PRN (07:15)
[2022-07-14] MEDS: ASPIRIN 81 MG ENTERIC COATED PO SCH ×2 (09:00→09:49)
[2022-07-14] MEDS: FUROSEMIDE INJ 10 MG/ML 4 ML VIAL IV SCH ×2 (09:48→20:56)
[2022-07-14] MEDS: CLOPIDOGREL BISULFATE 75 MG TAB PO SCH (09:48)
[2022-07-14] MEDS: ASCORBIC ACID 500 MG TAB PO SCH (09:48)
[2022-07-14] MEDS: BENZONATATE 100 MG CAP PO PRN ×2 (09:48→20:56)
[2022-07-14] MEDS: Doxycycline IV 100 MG in SODIUM CHLORIDE 0.9% 100 ML IV SCH ×2 (09:48→21:01)
[2022-07-14] MEDS: GABAPENTIN 100 MG CAP PO SCH ×3 (09:49→20:55)
[2022-07-14] MEDS: POTASSIUM CHLORIDE 20 MEQ TAB CR PO SCH (09:49)
[2022-07-14] MEDS: THIAMINE HCL 100 MG TAB PO SCH (09:50)
[2022-07-14] MEDS: METOPROLOL TARTRATE 25 MG TAB PO SCH ×2 (09:50→17:00)
[2022-07-14] MEDS: INSULIN LISPRO 100 UNIT/1 ML 3ML VIAL SQ SCH ×4 (09:52→20:56)
[2022-07-14 12:31] LABS: ANION GAP 16.9 mmol/L (8-16); CALCIUM 8.6 mg/dL (8.4-10.2); CREATININE, SERUM 2.13 mg/dL (0.57-1.11); POTASSIUM 4.9 mmol/L (3.5-5.1)
[2022-07-14] MEDS: ATORVASTATIN 20 MG TAB PO SCH (20:55)
[2022-07-14] MEDS: QUETIAPINE FUMARATE 25 MG TAB PO SCH (20:56)
[2022-07-15 02:33] VITALS: BP 98/55
[2022-07-15 05:00] VITALS: BP 108/72
[2022-07-15] MEDS: IPRATROPIUM BROMIDE 0.02% 2.5 ML NEB NEB PRN (06:30)
[2022-07-15 08:28] VITALS: BP 141/54
[2022-07-15] MEDS: ASCORBIC ACID 500 MG TAB PO SCH (08:52)
[2022-07-15] MEDS: THIAMINE HCL 100 MG TAB PO SCH (08:52)
[2022-07-15] MEDS: CLOPIDOGREL BISULFATE 75 MG TAB PO SCH (08:52)
[2022-07-15] MEDS: GABAPENTIN 100 MG CAP PO SCH ×3 (08:53→20:45)
[2022-07-15] MEDS: DOXYCYCLINE HYCLATE TABLET 100 MG TAB PO SCH ×2 (08:53→20:44)
[2022-07-15] MEDS: ASPIRIN 81 MG ENTERIC COATED PO SCH ×2 (08:53→09:00)
[2022-07-15] MEDS: METOPROLOL TARTRATE 25 MG TAB PO SCH ×2 (08:53→17:20)
[2022-07-15] MEDS: POTASSIUM CHLORIDE 20 MEQ TAB CR PO SCH (08:54)
[2022-07-15] MEDS: FUROSEMIDE INJ 10 MG/ML 4 ML VIAL IV SCH ×2 (08:55→20:43)
[2022-07-15] MEDS: BENZONATATE 100 MG CAP PO PRN (08:59)
[2022-07-15] MEDS: ACETAMINOPHEN/CODEINE 300MG - 30MG TAB PO PRN ×2 (08:59→20:44)
[2022-07-15] MEDS: INSULIN LISPRO 100 UNIT/1 ML 3ML VIAL SQ SCH ×4 (09:08→20:45)
[2022-07-15 12:04] VITALS: BP 124/93
[2022-07-15 16:37] VITALS: BP 126/67
[2022-07-15 20:00] VITALS: BP 119/75
[2022-07-15] MEDS: DIPHENHYDRAMINE HCL 25 MG CAP PO PRN (20:44)
[2022-07-15] MEDS: ATORVASTATIN 20 MG TAB PO SCH (20:44)
[2022-07-15] MEDS: QUETIAPINE FUMARATE 25 MG TAB PO SCH (20:44)
[2022-07-15] MEDS: ALBUTEROL SULF 0.083% NEB SOLN 3 ML NEB NEB PRN (21:00)
[2022-07-16 00:33] VITALS: BP 127/54
[2022-07-16 01:05] VITALS: BP 127/54
[2022-07-16] MEDS: BENZONATATE 100 MG CAP PO PRN ×2 (07:01→21:11)
[2022-07-16] MEDS: DIPHENHYDRAMINE HCL 25 MG CAP PO PRN ×2 (07:01→17:34)
[2022-07-16] MEDS: FUROSEMIDE INJ 10 MG/ML 4 ML VIAL IV SCH ×2 (08:15→20:44)
[2022-07-16] MEDS: ACETAMINOPHEN/CODEINE 300MG - 30MG TAB PO PRN ×2 (08:15→21:12)
[2022-07-16] MEDS: METOPROLOL TARTRATE 25 MG TAB PO SCH ×2 (08:16→17:32)
[2022-07-16] MEDS: GABAPENTIN 100 MG CAP PO SCH ×3 (08:16→20:45)
[2022-07-16] MEDS: ASCORBIC ACID 500 MG TAB PO SCH (08:16)
[2022-07-16] MEDS: THIAMINE HCL 100 MG TAB PO SCH (08:16)
[2022-07-16] MEDS: DOXYCYCLINE HYCLATE TABLET 100 MG TAB PO SCH ×2 (08:16→20:45)
[2022-07-16] MEDS: POTASSIUM CHLORIDE 20 MEQ TAB CR PO SCH (08:17)
[2022-07-16] MEDS: CLOPIDOGREL BISULFATE 75 MG TAB PO SCH (08:18)
[2022-07-16] MEDS: ASPIRIN 81 MG ENTERIC COATED PO SCH ×2 (08:18→08:19)
[2022-07-16 08:38] VITALS: BP 109/62
[2022-07-16 09:02] LABS: BASOPHILS # (AUTO) 0.1 (0.0-0.1); BASOPHILS % 0.8 % (0.0-1.0); EOSINOPHILS # (AUTO) 0.2 (0.0-0.4); EOSINOPHILS % 3.4 % (0.0-6.0); HEMATOCRIT 32.5 % (34.2-44.1); HEMOGLOBIN 9.1 g/dL (12.0-16.0); LYMPHOCYTES # (AUTO) 1.2 (1.0-3.2); LYMPHOCYTES % 18.1 % (18.0-39.1); MEAN CORPUSCULAR HEMOGLOBIN 25.4 pg (28-32); MEAN CORPUSCULAR VOLUME 90.8 fL (81-99); MONOCYTES # (AUTO) 0.5 (0.2-0.8); MONOCYTES % 7.3 % (4.4-11.3); NEUTROPHILS # (AUTO) 4.6 (2.1-6.9); NEUTROPHILS % 70.1 % (38.7-80.0); PLATELET COUNT 274 x10e3/uL (140-360); RED BLOOD COUNT 3.58 x10e6/uL (3.6-5.1); RED CELL DISTRIBUTION WIDTH 18.2 % (11.7-14.4)
[2022-07-16 09:20] LABS: ANION GAP 16.6 mmol/L (8-16); CALCIUM 8.7 mg/dL (8.4-10.2); CREATININE, SERUM 2.67 mg/dL (0.57-1.11); POTASSIUM 5.6 mmol/L (3.5-5.1)
[2022-07-16] MEDS ORDERED: FLUCONAZOLE 100 MG TAB PO ONE (10:00)
[2022-07-16] MEDS: INSULIN LISPRO 100 UNIT/1 ML 3ML VIAL SQ SCH ×4 (10:14→20:58)
[2022-07-16] MEDS: LORATADINE 10 MG TAB PO SCH (11:34)
[2022-07-16 12:22] VITALS: BP 111/59
[2022-07-16 17:15] VITALS: BP 123/70
[2022-07-16 19:44] VITALS: BP 125/71
[2022-07-16] MEDS: ATORVASTATIN 20 MG TAB PO SCH (20:45)
[2022-07-16] MEDS: QUETIAPINE FUMARATE 25 MG TAB PO SCH (20:45)
[2022-07-17] VITALS (8 sets, daily range): BP systolic 102–128; BP diastolic 56–72
[2022-07-17] MEDS ORDERED: SODIUM CHLORIDE 0.9% 250ML 250 ML ONE (05:15)
[2022-07-17 06:22] LABS: BASOPHILS # (AUTO) 0.1 (0.0-0.1); EOSINOPHILS # (AUTO) 0.2 (0.0-0.4); EOSINOPHILS % 3.7 % (0.0-6.0); HEMATOCRIT 30.9 % (34.2-44.1); HEMOGLOBIN 8.5 g/dL (12.0-16.0); LYMPHOCYTES # (AUTO) 1.1 (1.0-3.2); LYMPHOCYTES % 17.2 % (18.0-39.1); MEAN CORPUSCULAR HEMOGLOBIN 24.9 pg (28-32); MEAN CORPUSCULAR HGB CONC 27.5 g/dL (31-35); MEAN CORPUSCULAR VOLUME 90.6 fL (81-99); MONOCYTES # (AUTO) 0.4 (0.2-0.8); MONOCYTES % 7.1 % (4.4-11.3); NEUTROPHILS # (AUTO) 4.4 (2.1-6.9); NEUTROPHILS % 70.7 % (38.7-80.0); PLATELET COUNT 244 x10e3/uL (140-360); RED BLOOD COUNT 3.41 x10e6/uL (3.6-5.1)
[2022-07-17 06:48] LABS: ANION GAP 16.6 mmol/L (8-16); CALCIUM 8.5 mg/dL (8.4-10.2); CREATININE, SERUM 2.68 mg/dL (0.57-1.11); POTASSIUM 5.6 mmol/L (3.5-5.1)
[2022-07-17] MEDS: INSULIN LISPRO 100 UNIT/1 ML 3ML VIAL SQ SCH ×4 (07:30→21:56)
[2022-07-17] MEDS: ALBUTEROL SULF 0.083% NEB SOLN 3 ML NEB NEB PRN (09:15)
[2022-07-17] MEDS: IPRATROPIUM BROMIDE 0.02% 2.5 ML NEB NEB PRN (09:15)
[2022-07-17] MEDS: DOXYCYCLINE HYCLATE TABLET 100 MG TAB PO SCH ×2 (10:14→21:40)
[2022-07-17] MEDS: THIAMINE HCL 100 MG TAB PO SCH (10:14)
[2022-07-17] MEDS: GABAPENTIN 100 MG CAP PO SCH ×3 (10:14→21:39)
[2022-07-17] MEDS: FLUCONAZOLE 100 MG TAB PO SCH (10:14)
[2022-07-17] MEDS: ASCORBIC ACID 500 MG TAB PO SCH (10:15)
[2022-07-17] MEDS: METOPROLOL TARTRATE 25 MG TAB PO SCH ×2 (10:15→18:29)
[2022-07-17] MEDS: LORATADINE 10 MG TAB PO SCH (10:15)
[2022-07-17] MEDS: ASPIRIN 81 MG ENTERIC COATED PO SCH ×2 (10:16→10:18)
[2022-07-17] MEDS: FUROSEMIDE INJ 10 MG/ML 4 ML VIAL IV SCH (10:16)
[2022-07-17] MEDS: CLOPIDOGREL BISULFATE 75 MG TAB PO SCH (10:17)
[2022-07-17] MEDS: ACETAMINOPHEN/CODEINE 300MG - 30MG TAB PO PRN (10:40)
[2022-07-17] MEDS: BENZONATATE 100 MG CAP PO PRN (10:40)
[2022-07-17] MEDS: DIPHENHYDRAMINE HCL 25 MG CAP PO PRN (10:41)
[2022-07-17] MEDS: ATORVASTATIN 20 MG TAB PO SCH (21:39)
[2022-07-17] MEDS: QUETIAPINE FUMARATE 25 MG TAB PO SCH (21:40)
[2022-07-18] VITALS (8 sets, daily range): BP systolic 99–124; BP diastolic 60–82
[2022-07-18] MEDS: ACETAMINOPHEN/CODEINE 300MG - 30MG TAB PO PRN ×2 (01:19→10:15)
[2022-07-18] MEDS: DIPHENHYDRAMINE HCL 25 MG CAP PO PRN ×2 (01:20→10:15)
[2022-07-18] MEDS: BENZONATATE 100 MG CAP PO PRN ×2 (01:20→10:15)
[2022-07-18 06:24] LABS: CLARITY,URINE CLOUDY (CLEAR); COLOR,URINE YELLOW (YELLOW); KETONES,URINE NEGATIVE (NEGATIVE); LEUKOCYTE ESTERASE ,URINE SMALL (NEGATIVE); NITRITE,URINE NEGATIVE (NEGATIVE); PROTEIN,URINE DIPSTICK 2+ (NEGATIVE); URINE UROBILINOGEN 0.2 mg/dL (0.2 - 1)
[2022-07-18 06:30] LABS: ANION GAP 17.8 mmol/L (8-16); CALCIUM 8.5 mg/dL (8.4-10.2); CREATININE, SERUM 2.91 mg/dL (0.57-1.11); POTASSIUM 5.8 mmol/L (3.5-5.1)
[2022-07-18 06:45] LABS: BACTERIA,URINE FEW /HPF; RBC,URINE 21-50 /HPF (0-5); WBC,URINE (MAN) >50 /HPF (0-5)
[2022-07-18 06:46] LABS: EPITHELIAL CELLS,URINE FEW /LPF
[2022-07-18 06:47] LABS: YEAST,URINE MODERATE
[2022-07-18 07:46] LABS: CREATININE,URINE RANDOM 63.05 mg/dL (47-110); TOTAL PROTEIN, URINE 140.3 mg/dL (1-14)
[2022-07-18 09:23] LABS: EOSINOPHIL SMEAR,URINE NONE SEEN (NONE SEEN)
[2022-07-18] MEDS ORDERED: SOD POLYSTYRENE SULFONATE SUSP 15 GM/60 ML BTL PO ONE ×2 (09:30→13:30)
[2022-07-18] MEDS: DOXYCYCLINE HYCLATE TABLET 100 MG TAB PO SCH ×2 (10:05→21:14)
[2022-07-18] MEDS: LORATADINE 10 MG TAB PO SCH (10:05)
[2022-07-18] MEDS: GABAPENTIN 100 MG CAP PO SCH ×3 (10:05→21:14)
[2022-07-18] MEDS: CLOPIDOGREL BISULFATE 75 MG TAB PO SCH (10:05)
[2022-07-18] MEDS: THIAMINE HCL 100 MG TAB PO SCH (10:05)
[2022-07-18] MEDS: FLUCONAZOLE 100 MG TAB PO SCH (10:05)
[2022-07-18] MEDS: ASPIRIN 81 MG ENTERIC COATED PO SCH (10:05)
[2022-07-18] MEDS: ASCORBIC ACID 500 MG TAB PO SCH (10:05)
[2022-07-18] MEDS: METOPROLOL TARTRATE 25 MG TAB PO SCH ×2 (10:06→17:00)
[2022-07-18] MEDS: INSULIN LISPRO 100 UNIT/1 ML 3ML VIAL SQ SCH ×4 (10:10→21:19)
[2022-07-18] MEDS: IPRATROPIUM BROMIDE 0.02% 2.5 ML NEB NEB PRN (11:30)
[2022-07-18 16:16] LABS: ANION GAP 16.7 mmol/L (8-16); CALCIUM 8.7 mg/dL (8.4-10.2); CREATININE, SERUM 2.98 mg/dL (0.57-1.11)
[2022-07-18 16:19] LABS: POTASSIUM 5.7 mmol/L (3.5-5.1)
[2022-07-18] MEDS ORDERED: FUROSEMIDE INJ 10 MG/ML 4 ML VIAL IV ONE (17:30)
[2022-07-18] MEDS: QUETIAPINE FUMARATE 25 MG TAB PO SCH (21:14)
[2022-07-18] MEDS: ATORVASTATIN 20 MG TAB PO SCH (21:14)
[2022-07-18] MEDS: BISACODYL 5 MG TAB EC PO PRN ×2 (22:11→22:17)
[2022-07-19] VITALS (8 sets, daily range): BP systolic 106–118; BP diastolic 48–64
[2022-07-19] MEDS: ACETAMINOPHEN/CODEINE 300MG - 30MG TAB PO PRN (01:04)
[2022-07-19] MEDS: BENZONATATE 100 MG CAP PO PRN (01:04)
[2022-07-19] MEDS: ALBUTEROL SULF 0.083% NEB SOLN 3 ML NEB NEB PRN (03:35)
[2022-07-19] MEDS: IPRATROPIUM BROMIDE 0.02% 2.5 ML NEB NEB PRN (03:35)
[2022-07-19 08:10] LABS: ANION GAP 17.2 mmol/L (8-16); CALCIUM 8.6 mg/dL (8.4-10.2); CREATININE, SERUM 2.97 mg/dL (0.57-1.11); POTASSIUM 5.2 mmol/L (3.5-5.1)
[2022-07-19] MEDS: INSULIN LISPRO 100 UNIT/1 ML 3ML VIAL SQ SCH ×4 (08:40→20:47)
[2022-07-19] MEDS ORDERED: FUROSEMIDE INJ 10 MG/ML 4 ML VIAL IV SCH (09:00)
[2022-07-19] MEDS: THIAMINE HCL 100 MG TAB PO SCH (09:24)
[2022-07-19] MEDS: DOXYCYCLINE HYCLATE TABLET 100 MG TAB PO SCH ×2 (09:24→20:41)
[2022-07-19] MEDS: FLUCONAZOLE 100 MG TAB PO SCH (09:24)
[2022-07-19] MEDS: ASPIRIN 81 MG ENTERIC COATED PO SCH (09:24)
[2022-07-19] MEDS: ASCORBIC ACID 500 MG TAB PO SCH (09:24)
[2022-07-19] MEDS: GABAPENTIN 100 MG CAP PO SCH ×3 (09:24→20:41)
[2022-07-19] MEDS: CLOPIDOGREL BISULFATE 75 MG TAB PO SCH (09:24)
[2022-07-19] MEDS: LORATADINE 10 MG TAB PO SCH (09:24)
[2022-07-19] MEDS: METOPROLOL TARTRATE 25 MG TAB PO SCH ×2 (09:25→16:44)
[2022-07-19 11:26] LABS: TOTAL PROTEIN, URINE 159.3 mg/dL (1-14)
[2022-07-19 11:35] LABS: TOTAL PROTEIN 24HR, URINE 955.8 mg/24hr (50-100)
[2022-07-19] MEDS ORDERED: SODIUM CHLORIDE 0.9% 0 ML ONE (13:31)
[2022-07-19] MEDS: FUROSEMIDE INJ 100 MG in SODIUM CHLORIDE 0.9% 90 ML IV SCH (14:12)
[2022-07-19] MEDS: LACTULOSE SYRUP 20 GM/30 ML UDC PO SCH (16:45)
[2022-07-19] MEDS: ATORVASTATIN 20 MG TAB PO SCH (20:41)
[2022-07-19] MEDS: QUETIAPINE FUMARATE 25 MG TAB PO SCH (20:42)
[2022-07-20] VITALS (7 sets, daily range): BP systolic 108–125; BP diastolic 54–68
[2022-07-20] MEDS: FUROSEMIDE INJ 100 MG in SODIUM CHLORIDE 0.9% 90 ML IV SCH ×2 (02:32→14:01)
[2022-07-20 07:27] LABS: BASOPHILS % 0.8 % (0.0-1.0); EOSINOPHILS # (AUTO) 0.1 (0.0-0.4); EOSINOPHILS % 2.4 % (0.0-6.0); HEMATOCRIT 29.2 % (34.2-44.1); HEMOGLOBIN 8.3 g/dL (12.0-16.0); LYMPHOCYTES # (AUTO) 0.8 (1.0-3.2); LYMPHOCYTES % 21.4 % (18.0-39.1); MEAN CORPUSCULAR HEMOGLOBIN 25.4 pg (28-32); MEAN CORPUSCULAR HGB CONC 28.4 g/dL (31-35); MEAN CORPUSCULAR VOLUME 89.3 fL (81-99); MONOCYTES # (AUTO) 0.3 (0.2-0.8); MONOCYTES % 8.6 % (4.4-11.3); NEUTROPHILS # (AUTO) 2.5 (2.1-6.9); NEUTROPHILS % 66.3 % (38.7-80.0); PLATELET COUNT 229 x10e3/uL (140-360); RED BLOOD COUNT 3.27 x10e6/uL (3.6-5.1); RED CELL DISTRIBUTION WIDTH 18.5 % (11.7-14.4)
[2022-07-20] MEDS: INSULIN LISPRO 100 UNIT/1 ML 3ML VIAL SQ SCH ×4 (07:30→21:00)
[2022-07-20 08:00] LABS: CALCIUM 8.2 mg/dL (8.4-10.2); CREATININE, SERUM 2.98 mg/dL (0.57-1.11)
[2022-07-20] MEDS: METOPROLOL TARTRATE 25 MG TAB PO SCH ×2 (09:00→18:07)
[2022-07-20] MEDS: LACTULOSE SYRUP 20 GM/30 ML UDC PO SCH ×2 (09:03→18:06)
[2022-07-20] MEDS: ASPIRIN 81 MG ENTERIC COATED PO SCH (09:04)
[2022-07-20] MEDS: FLUCONAZOLE 100 MG TAB PO SCH (09:04)
[2022-07-20] MEDS: LORATADINE 10 MG TAB PO SCH (09:04)
[2022-07-20] MEDS: GABAPENTIN 100 MG CAP PO SCH ×3 (09:04→20:39)
[2022-07-20] MEDS: THIAMINE HCL 100 MG TAB PO SCH (09:04)
[2022-07-20] MEDS: CLOPIDOGREL BISULFATE 75 MG TAB PO SCH (09:04)
[2022-07-20] MEDS: ASCORBIC ACID 500 MG TAB PO SCH (09:04)
[2022-07-20] MEDS: DOXYCYCLINE HYCLATE TABLET 100 MG TAB PO SCH ×2 (09:04→20:39)
[2022-07-20] MEDS ORDERED: HYDROCODONE/APAP 5MG-325MG TAB PO PRN ×2 (09:45)
[2022-07-20] MEDS: IPRATROPIUM BROMIDE 0.02% 2.5 ML NEB NEB PRN (09:50)
[2022-07-20] MEDS: ALBUTEROL SULF 0.083% NEB SOLN 3 ML NEB NEB PRN (09:50)
[2022-07-20] MEDS: DIPHENHYDRAMINE HCL 25 MG CAP PO PRN (14:01)
[2022-07-20] MEDS: BENZONATATE 100 MG CAP PO PRN (14:02)
[2022-07-20] MEDS: ACETAMINOPHEN/CODEINE 300MG - 30MG TAB PO PRN (14:02)
[2022-07-20] MEDS: ONDANSETRON HCL 4 MG ORAL DISINTEGRATING TAB PO PRN (14:26)
[2022-07-20] MEDS: ATORVASTATIN 20 MG TAB PO SCH (20:39)
[2022-07-20] MEDS: QUETIAPINE FUMARATE 25 MG TAB PO SCH (20:40)
[2022-07-21] VITALS (7 sets, daily range): BP systolic 107–141; BP diastolic 51–69
[2022-07-21] MEDS: INSULIN LISPRO 100 UNIT/1 ML 3ML VIAL SQ SCH ×4 (07:30→21:00)
[2022-07-21] MEDS: IPRATROPIUM BROMIDE 0.02% 2.5 ML NEB NEB PRN (09:00)
[2022-07-21] MEDS: GABAPENTIN 100 MG CAP PO SCH ×3 (09:00→19:54)
[2022-07-21] MEDS: METOPROLOL TARTRATE 25 MG TAB PO SCH ×2 (09:00→16:45)
[2022-07-21] MEDS: LACTULOSE SYRUP 20 GM/30 ML UDC PO SCH ×2 (09:00→16:44)
[2022-07-21] MEDS: DOXYCYCLINE HYCLATE TABLET 100 MG TAB PO SCH ×2 (09:33→19:54)
[2022-07-21] MEDS: FLUCONAZOLE 100 MG TAB PO SCH (09:33)
[2022-07-21] MEDS: CLOPIDOGREL BISULFATE 75 MG TAB PO SCH (09:34)
[2022-07-21] MEDS: THIAMINE HCL 100 MG TAB PO SCH (09:34)
[2022-07-21] MEDS: ASPIRIN 81 MG ENTERIC COATED PO SCH (09:34)
[2022-07-21] MEDS: LORATADINE 10 MG TAB PO SCH (09:34)
[2022-07-21] MEDS: ASCORBIC ACID 500 MG TAB PO SCH (09:35)
[2022-07-21] MEDS: FUROSEMIDE INJ 100 MG in SODIUM CHLORIDE 0.9% 90 ML IV SCH ×4 (11:47→22:02)
[2022-07-21] MEDS: BENZONATATE 100 MG CAP PO PRN (12:09)
[2022-07-21] MEDS: ACETAMINOPHEN/CODEINE 300MG - 30MG TAB PO PRN ×2 (12:09→19:55)
[2022-07-21] MEDS: BISACODYL 5 MG TAB EC PO PRN (12:10)
[2022-07-21] MEDS: DIPHENHYDRAMINE HCL 25 MG CAP PO PRN (12:10)
[2022-07-21] MEDS: BISACODYL 10 MG SUPP PR PRN (16:44)
[2022-07-21] MEDS: QUETIAPINE FUMARATE 25 MG TAB PO SCH (19:54)
[2022-07-21] MEDS: ATORVASTATIN 20 MG TAB PO SCH (19:55)
[2022-07-22] VITALS (10 sets, daily range): BP systolic 101–158; BP diastolic 54–76
[2022-07-22 06:19] LABS: ANION GAP 17.7 mmol/L (8-16); CALCIUM 8.7 mg/dL (8.4-10.2); POTASSIUM 4.7 mmol/L (3.5-5.1)
[2022-07-22] MEDS: INSULIN LISPRO 100 UNIT/1 ML 3ML VIAL SQ SCH ×4 (08:30→20:42)
[2022-07-22] MEDS: FUROSEMIDE INJ 100 MG in SODIUM CHLORIDE 0.9% 90 ML IV SCH (08:56)
[2022-07-22] MEDS: METOPROLOL TARTRATE 25 MG TAB PO SCH ×2 (09:00→17:00)
[2022-07-22] MEDS: LACTULOSE SYRUP 20 GM/30 ML UDC PO SCH ×2 (09:00→17:00)
[2022-07-22] MEDS: ASCORBIC ACID 500 MG TAB PO SCH (09:47)
[2022-07-22] MEDS: ASPIRIN 81 MG ENTERIC COATED PO SCH (09:47)
[2022-07-22] MEDS: CLOPIDOGREL BISULFATE 75 MG TAB PO SCH (09:47)
[2022-07-22] MEDS: GABAPENTIN 100 MG CAP PO SCH ×3 (09:48→20:40)
[2022-07-22] MEDS: FLUCONAZOLE 100 MG TAB PO SCH (09:48)
[2022-07-22] MEDS: LORATADINE 10 MG TAB PO SCH (09:48)
[2022-07-22] MEDS: THIAMINE HCL 100 MG TAB PO SCH (09:49)
[2022-07-22] MEDS: BENZONATATE 100 MG CAP PO PRN ×2 (09:58→20:42)
[2022-07-22] MEDS: ACETAMINOPHEN/CODEINE 300MG - 30MG TAB PO PRN ×2 (09:58→20:41)
[2022-07-22] MEDS: DIPHENHYDRAMINE HCL 25 MG CAP PO PRN (09:58)
[2022-07-22] MEDS ORDERED: SODIUM CHLORIDE 0.9% 250ML 250 ML ONE (15:47)
[2022-07-22] MEDS ORDERED: LIDOCAINE HCL 1% LOCAL INJ 20 ML VIAL ONE (15:47)
[2022-07-22 15:54] LABS: INR 1.34; PROTHROMBIN TIME 17.1 seconds (11.9-14.5)
[2022-07-22] MEDS ORDERED: HEPARIN SOD (PORCINE) 1000 UNIT/ML SDV ONE (16:19)
[2022-07-22] MEDS: ATORVASTATIN 20 MG TAB PO SCH (20:40)
[2022-07-22] MEDS: QUETIAPINE FUMARATE 25 MG TAB PO SCH (20:41)
[2022-07-23 06:37] LABS: ANION GAP 16.4 mmol/L (8-16); CALCIUM 8.5 mg/dL (8.4-10.2); CREATININE, SERUM 2.85 mg/dL (0.57-1.11); POTASSIUM 4.4 mmol/L (3.5-5.1)
[2022-07-23] MEDS: INSULIN LISPRO 100 UNIT/1 ML 3ML VIAL SQ SCH ×4 (07:30→21:00)
[2022-07-23 07:56] VITALS: BP 110/62
[2022-07-23 08:30] VITALS: BP 110/62
[2022-07-23] MEDS ORDERED: SODIUM CHLORIDE 0.9% 1000ML 2,000 ML ONE (08:56)
[2022-07-23] MEDS: METOPROLOL TARTRATE 25 MG TAB PO SCH ×2 (09:00→17:01)
[2022-07-23] MEDS: LACTULOSE SYRUP 20 GM/30 ML UDC PO SCH ×2 (09:00→17:00)
[2022-07-23] MEDS ORDERED: SODIUM CHLORIDE 0.9% 1000ML 2,000 ML IV PRN (09:15)
[2022-07-23] MEDS ORDERED: HEPARIN SOD (PORCINE) 1000 UNIT/ML SDV IV PRN (09:15)
[2022-07-23 11:46] VITALS: BP 117/68
[2022-07-23] MEDS: LORATADINE 10 MG TAB PO SCH (12:07)
[2022-07-23] MEDS: THIAMINE HCL 100 MG TAB PO SCH (12:07)
[2022-07-23] MEDS: FLUCONAZOLE 100 MG TAB PO SCH (12:07)
[2022-07-23] MEDS: CLOPIDOGREL BISULFATE 75 MG TAB PO SCH (12:07)
[2022-07-23] MEDS: ASCORBIC ACID 500 MG TAB PO SCH (12:07)
[2022-07-23] MEDS: GABAPENTIN 100 MG CAP PO SCH ×3 (12:07→21:41)
[2022-07-23] MEDS: ASPIRIN 81 MG ENTERIC COATED PO SCH (12:08)
[2022-07-23] MEDS: ACETAMINOPHEN/CODEINE 300MG - 30MG TAB PO PRN ×2 (12:12→21:42)
[2022-07-23] MEDS: BENZONATATE 100 MG CAP PO PRN ×2 (12:12→21:40)
[2022-07-23] MEDS: BISACODYL 10 MG SUPP PR PRN ×2 (13:03→21:40)
[2022-07-23 15:44] VITALS: BP 131/87
[2022-07-23 20:00] VITALS: BP 107/66
[2022-07-23] MEDS: DIPHENHYDRAMINE HCL 25 MG CAP PO PRN (21:40)
[2022-07-23] MEDS: ATORVASTATIN 20 MG TAB PO SCH (21:41)
[2022-07-23] MEDS: QUETIAPINE FUMARATE 25 MG TAB PO SCH (21:41)
[2022-07-24] VITALS (7 sets, daily range): BP systolic 104–131; BP diastolic 51–67
[2022-07-24 06:00] LABS: BASOPHILS % 0.5 % (0.0-1.0); EOSINOPHILS # (AUTO) 0.1 (0.0-0.4); EOSINOPHILS % 2.3 % (0.0-6.0); HEMATOCRIT 31.3 % (34.2-44.1); HEMOGLOBIN 9.2 g/dL (12.0-16.0); LYMPHOCYTES # (AUTO) 0.9 (1.0-3.2); LYMPHOCYTES % 16.3 % (18.0-39.1); MEAN CORPUSCULAR HEMOGLOBIN 25.4 pg (28-32); MEAN CORPUSCULAR HGB CONC 29.4 g/dL (31-35); MEAN CORPUSCULAR VOLUME 86.5 fL (81-99); MONOCYTES # (AUTO) 0.3 (0.2-0.8); MONOCYTES % 5.2 % (4.4-11.3); NEUTROPHILS # (AUTO) 4.2 (2.1-6.9); NEUTROPHILS % 75.3 % (38.7-80.0); PLATELET COUNT 216 x10e3/uL (140-360); RED BLOOD COUNT 3.62 x10e6/uL (3.6-5.1); RED CELL DISTRIBUTION WIDTH 18.6 % (11.7-14.4)
[2022-07-24 06:17] LABS: ANION GAP 16.6 mmol/L (8-16); CALCIUM 8.4 mg/dL (8.4-10.2); CREATININE, SERUM 2.83 mg/dL (0.57-1.11); POTASSIUM 4.6 mmol/L (3.5-5.1)
[2022-07-24] MEDS: INSULIN LISPRO 100 UNIT/1 ML 3ML VIAL SQ SCH ×4 (07:30→21:00)
[2022-07-24] MEDS: THIAMINE HCL 100 MG TAB PO SCH (09:00)
[2022-07-24] MEDS: CLOPIDOGREL BISULFATE 75 MG TAB PO SCH (09:00)
[2022-07-24] MEDS: LORATADINE 10 MG TAB PO SCH (09:00)
[2022-07-24] MEDS: ASCORBIC ACID 500 MG TAB PO SCH (09:00)
[2022-07-24] MEDS: METOPROLOL TARTRATE 25 MG TAB PO SCH ×2 (09:00→17:00)
[2022-07-24] MEDS: ASPIRIN 81 MG ENTERIC COATED PO SCH (09:00)
[2022-07-24] MEDS: GABAPENTIN 100 MG CAP PO SCH ×3 (09:00→21:28)
[2022-07-24] MEDS: LACTULOSE SYRUP 20 GM/30 ML UDC PO SCH ×2 (17:38→17:41)
[2022-07-24] MEDS: BENZONATATE 100 MG CAP PO PRN (17:45)
[2022-07-24] MEDS: ACETAMINOPHEN/CODEINE 300MG - 30MG TAB PO PRN (17:46)
[2022-07-24] MEDS: DIPHENHYDRAMINE HCL 25 MG CAP PO PRN (17:46)
[2022-07-24] MEDS: ATORVASTATIN 20 MG TAB PO SCH (21:28)
[2022-07-24] MEDS: QUETIAPINE FUMARATE 25 MG TAB PO SCH (21:28)
[2022-07-25] VITALS (8 sets, daily range): BP systolic 102–127; BP diastolic 64–83
[2022-07-25 07:13] LABS: ANION GAP 14.9 mmol/L (8-16); CALCIUM 8.1 mg/dL (8.4-10.2); CREATININE, SERUM 2.03 mg/dL (0.57-1.11); POTASSIUM 3.9 mmol/L (3.5-5.1)
[2022-07-25] MEDS: INSULIN LISPRO 100 UNIT/1 ML 3ML VIAL SQ SCH ×4 (08:00→23:23)
[2022-07-25] MEDS: GABAPENTIN 100 MG CAP PO SCH ×4 (08:32→21:25)
[2022-07-25] MEDS: ASCORBIC ACID 500 MG TAB PO SCH (08:33)
[2022-07-25] MEDS: CLOPIDOGREL BISULFATE 75 MG TAB PO SCH (08:33)
[2022-07-25] MEDS: THIAMINE HCL 100 MG TAB PO SCH (08:33)
[2022-07-25] MEDS: METOPROLOL TARTRATE 25 MG TAB PO SCH ×2 (08:33→16:48)
[2022-07-25] MEDS: LORATADINE 10 MG TAB PO SCH (08:33)
[2022-07-25] MEDS: ASPIRIN 81 MG ENTERIC COATED PO SCH (08:37)
[2022-07-25] MEDS: LACTULOSE SYRUP 20 GM/30 ML UDC PO SCH ×4 (08:48→17:00)
[2022-07-25] MEDS: ACETAMINOPHEN 325 MG TAB PO PRN ×2 (11:27→17:38)
[2022-07-25] MEDS: BENZONATATE 100 MG CAP PO PRN ×2 (11:28→17:37)
[2022-07-25] MEDS: DIPHENHYDRAMINE HCL 25 MG CAP PO PRN ×2 (11:41→17:37)
[2022-07-25] MEDS: IPRATROPIUM BROMIDE 0.02% 2.5 ML NEB NEB PRN (12:05)
[2022-07-25] MEDS: ALBUTEROL SULF 0.083% NEB SOLN 3 ML NEB NEB PRN (12:05)
[2022-07-25] MEDS: QUETIAPINE FUMARATE 25 MG TAB PO SCH (21:25)
[2022-07-25] MEDS: ATORVASTATIN 20 MG TAB PO SCH (21:25)
[2022-07-26] VITALS (8 sets, daily range): BP systolic 105–138; BP diastolic 60–87
[2022-07-26 07:13] LABS: ANION GAP 12.7 mmol/L (8-16); CALCIUM 8.2 mg/dL (8.4-10.2); CREATININE, SERUM 1.64 mg/dL (0.57-1.11); POTASSIUM 3.7 mmol/L (3.5-5.1)
[2022-07-26] MEDS: ALBUTEROL SULF 0.083% NEB SOLN 3 ML NEB NEB PRN ×3 (09:18→20:50)
[2022-07-26] MEDS: IPRATROPIUM BROMIDE 0.02% 2.5 ML NEB NEB PRN ×3 (09:18→20:50)
[2022-07-26] MEDS: ASPIRIN 81 MG ENTERIC COATED PO SCH (09:54)
[2022-07-26] MEDS: CLOPIDOGREL BISULFATE 75 MG TAB PO SCH (09:55)
[2022-07-26] MEDS: DIPHENHYDRAMINE HCL 25 MG CAP PO PRN ×2 (09:55→21:18)
[2022-07-26] MEDS: LORATADINE 10 MG TAB PO SCH (09:55)
[2022-07-26] MEDS: GABAPENTIN 100 MG CAP PO SCH ×3 (09:55→21:18)
[2022-07-26] MEDS: BENZONATATE 100 MG CAP PO PRN ×2 (09:55→21:20)
[2022-07-26] MEDS: THIAMINE HCL 100 MG TAB PO SCH (09:55)
[2022-07-26] MEDS: METOPROLOL TARTRATE 25 MG TAB PO SCH ×2 (09:56→17:21)
[2022-07-26] MEDS: ASCORBIC ACID 500 MG TAB PO SCH (09:57)
[2022-07-26] MEDS: INSULIN LISPRO 100 UNIT/1 ML 3ML VIAL SQ SCH ×4 (09:57→21:29)
[2022-07-26] MEDS ORDERED: HEPARIN SOD (PORCINE) 1000 UNIT/ML SDV IV PRN (11:00)
[2022-07-26] MEDS ORDERED: ALBUMIN 25% 12.5GM 0.25 GM/ML BTL IV PRN (11:00)
[2022-07-26] MEDS: MIDODRINE 2.5 MG TAB PO SCH (11:37)
[2022-07-26] MEDS: ATORVASTATIN 20 MG TAB PO SCH (21:19)
[2022-07-26] MEDS: ACETAMINOPHEN/CODEINE 300MG - 30MG TAB PO PRN (21:19)
[2022-07-26] MEDS: QUETIAPINE FUMARATE 25 MG TAB PO SCH (21:20)
[2022-07-27] VITALS (8 sets, daily range): BP systolic 104–136; BP diastolic 50–86
[2022-07-27] MEDS: ACETAMINOPHEN 325 MG TAB PO PRN (05:57)
[2022-07-27] MEDS: IPRATROPIUM BROMIDE 0.02% 2.5 ML NEB NEB PRN ×2 (08:59→17:20)
[2022-07-27] MEDS: ALBUTEROL SULF 0.083% NEB SOLN 3 ML NEB NEB PRN ×2 (08:59→17:20)
[2022-07-27] MEDS: INSULIN LISPRO 100 UNIT/1 ML 3ML VIAL SQ SCH ×4 (09:49→21:41)
[2022-07-27] MEDS: ASPIRIN 81 MG ENTERIC COATED PO SCH (09:49)
[2022-07-27] MEDS: FUROSEMIDE INJ 10 MG/ML 4 ML VIAL IV SCH ×2 (09:49→21:29)
[2022-07-27] MEDS: LORATADINE 10 MG TAB PO SCH (09:52)
[2022-07-27] MEDS: CLOPIDOGREL BISULFATE 75 MG TAB PO SCH (09:54)
[2022-07-27] MEDS: MIDODRINE 2.5 MG TAB PO SCH ×3 (09:54→16:59)
[2022-07-27] MEDS: GABAPENTIN 100 MG CAP PO SCH ×3 (09:54→21:29)
[2022-07-27] MEDS: THIAMINE HCL 100 MG TAB PO SCH (09:54)
[2022-07-27] MEDS: ASCORBIC ACID 500 MG TAB PO SCH (09:54)
[2022-07-27] MEDS: METOPROLOL TARTRATE 25 MG TAB PO SCH ×2 (09:55→16:56)
[2022-07-27] MEDS: ACETAMINOPHEN/CODEINE 300MG - 30MG TAB PO PRN ×2 (11:29→21:29)
[2022-07-27] MEDS: DIPHENHYDRAMINE HCL 25 MG CAP PO PRN ×2 (11:29→21:29)
[2022-07-27] MEDS: BENZONATATE 100 MG CAP PO PRN ×2 (11:29→21:30)
[2022-07-27] MEDS: QUETIAPINE FUMARATE 25 MG TAB PO SCH (21:30)
[2022-07-27] MEDS: ATORVASTATIN 20 MG TAB PO SCH (21:30)
[2022-07-27] MEDS: ONDANSETRON HCL 4 MG ORAL DISINTEGRATING TAB PO PRN (21:30)
[2022-07-28] VITALS (8 sets, daily range): BP systolic 103–125; BP diastolic 48–74
[2022-07-28 06:10] LABS: BASOPHILS # (AUTO) 0.1 (0.0-0.1); EOSINOPHILS # (AUTO) 0.2 (0.0-0.4); EOSINOPHILS % 4.4 % (0.0-6.0); HEMATOCRIT 32.2 % (34.2-44.1); HEMOGLOBIN 8.9 g/dL (12.0-16.0); LYMPHOCYTES # (AUTO) 1.3 (1.0-3.2); LYMPHOCYTES % 25.5 % (18.0-39.1); MEAN CORPUSCULAR HEMOGLOBIN 25.4 pg (28-32); MEAN CORPUSCULAR HGB CONC 27.6 g/dL (31-35); MONOCYTES # (AUTO) 0.4 (0.2-0.8); MONOCYTES % 8.3 % (4.4-11.3); NEUTROPHILS # (AUTO) 3.2 (2.1-6.9); NEUTROPHILS % 60.6 % (38.7-80.0); PLATELET COUNT 217 x10e3/uL (140-360); RED CELL DISTRIBUTION WIDTH 18.6 % (11.7-14.4)
[2022-07-28 07:26] LABS: ANION GAP 15.1 mmol/L (8-16); CALCIUM 8.4 mg/dL (8.4-10.2); CREATININE, SERUM 2.17 mg/dL (0.57-1.11); POTASSIUM 4.1 mmol/L (3.5-5.1)
[2022-07-28] MEDS: INSULIN LISPRO 100 UNIT/1 ML 3ML VIAL SQ SCH ×4 (07:30→21:00)
[2022-07-28] MEDS: METOPROLOL TARTRATE 25 MG TAB PO SCH ×2 (09:00→17:00)
[2022-07-28] MEDS: MIDODRINE 2.5 MG TAB PO SCH ×2 (10:35→17:26)
[2022-07-28] MEDS: FUROSEMIDE INJ 10 MG/ML 4 ML VIAL IV SCH ×2 (10:52→21:25)
[2022-07-28] MEDS: ASPIRIN 81 MG ENTERIC COATED PO SCH (10:52)
[2022-07-28] MEDS: ASCORBIC ACID 500 MG TAB PO SCH (10:52)
[2022-07-28] MEDS: LORATADINE 10 MG TAB PO SCH (10:53)
[2022-07-28] MEDS: CLOPIDOGREL BISULFATE 75 MG TAB PO SCH (10:53)
[2022-07-28] MEDS: THIAMINE HCL 100 MG TAB PO SCH (10:53)
[2022-07-28] MEDS: GABAPENTIN 100 MG CAP PO SCH ×3 (10:53→21:24)
[2022-07-28] MEDS: ACETAMINOPHEN/CODEINE 300MG - 30MG TAB PO PRN (10:54)
[2022-07-28] MEDS: BENZONATATE 100 MG CAP PO PRN ×2 (10:54→21:24)
[2022-07-28] MEDS: DIPHENHYDRAMINE HCL 25 MG CAP PO PRN (10:54)
[2022-07-28] MEDS: ALBUTEROL SULF 0.083% NEB SOLN 3 ML NEB NEB PRN (10:55)
[2022-07-28] MEDS: IPRATROPIUM BROMIDE 0.02% 2.5 ML NEB NEB PRN (10:55)
[2022-07-28] MEDS: ATORVASTATIN 20 MG TAB PO SCH (21:24)
[2022-07-28] MEDS: QUETIAPINE FUMARATE 25 MG TAB PO SCH (21:24)
[2022-07-29] VITALS (7 sets, daily range): BP systolic 93–129; BP diastolic 58–77
[2022-07-29 06:49] LABS: ANION GAP 15.5 mmol/L (8-16); CALCIUM 8.6 mg/dL (8.4-10.2); CREATININE, SERUM 2.44 mg/dL (0.57-1.11); POTASSIUM 4.5 mmol/L (3.5-5.1)
[2022-07-29] MEDS: IPRATROPIUM BROMIDE 0.02% 2.5 ML NEB NEB PRN (07:00)
[2022-07-29] MEDS: ALBUTEROL SULF 0.083% NEB SOLN 3 ML NEB NEB PRN (07:00)
[2022-07-29] MEDS: INSULIN LISPRO 100 UNIT/1 ML 3ML VIAL SQ SCH ×4 (07:30→21:00)
[2022-07-29] MEDS: CLOPIDOGREL BISULFATE 75 MG TAB PO SCH (09:15)
[2022-07-29] MEDS: LORATADINE 10 MG TAB PO SCH (09:15)
[2022-07-29] MEDS: THIAMINE HCL 100 MG TAB PO SCH (09:15)
[2022-07-29] MEDS: GABAPENTIN 100 MG CAP PO SCH ×3 (09:15→21:06)
[2022-07-29] MEDS: MIDODRINE 2.5 MG TAB PO SCH ×2 (09:15→17:11)
[2022-07-29] MEDS: METOPROLOL TARTRATE 25 MG TAB PO SCH ×2 (09:16→17:10)
[2022-07-29] MEDS: ASCORBIC ACID 500 MG TAB PO SCH (09:16)
[2022-07-29] MEDS: ASPIRIN 81 MG ENTERIC COATED PO SCH (09:16)
[2022-07-29] MEDS: FUROSEMIDE INJ 10 MG/ML 4 ML VIAL IV SCH ×2 (09:17→21:08)
[2022-07-29] MEDS: BENZONATATE 100 MG CAP PO PRN ×2 (09:26→21:05)
[2022-07-29] MEDS: ACETAMINOPHEN/CODEINE 300MG - 30MG TAB PO PRN ×2 (09:27→21:06)
[2022-07-29] MEDS: DIPHENHYDRAMINE HCL 25 MG CAP PO PRN (09:27)
[2022-07-29] MEDS: QUETIAPINE FUMARATE 25 MG TAB PO SCH (21:06)
[2022-07-29] MEDS: ATORVASTATIN 20 MG TAB PO SCH (21:06)
[2022-07-30] VITALS (8 sets, daily range): BP systolic 99–121; BP diastolic 55–76
[2022-07-30 06:21] LABS: ANION GAP 13.6 mmol/L (8-16); CALCIUM 8.2 mg/dL (8.4-10.2); CREATININE, SERUM 2.48 mg/dL (0.57-1.11); POTASSIUM 4.6 mmol/L (3.5-5.1)
[2022-07-30] MEDS: IPRATROPIUM BROMIDE 0.02% 2.5 ML NEB NEB PRN ×2 (06:30→18:40)
[2022-07-30] MEDS: METOPROLOL TARTRATE 25 MG TAB PO SCH ×2 (09:00→17:22)
[2022-07-30] MEDS: INSULIN LISPRO 100 UNIT/1 ML 3ML VIAL SQ SCH ×4 (09:16→20:51)
[2022-07-30] MEDS: FUROSEMIDE INJ 10 MG/ML 4 ML VIAL IV SCH (09:17)
[2022-07-30] MEDS: ASPIRIN 81 MG ENTERIC COATED PO SCH (09:17)
[2022-07-30] MEDS: ASCORBIC ACID 500 MG TAB PO SCH (09:18)
[2022-07-30] MEDS: GABAPENTIN 100 MG CAP PO SCH ×3 (09:18→20:48)
[2022-07-30] MEDS: MIDODRINE 2.5 MG TAB PO SCH ×2 (09:18→17:22)
[2022-07-30] MEDS: LORATADINE 10 MG TAB PO SCH (09:18)
[2022-07-30] MEDS: THIAMINE HCL 100 MG TAB PO SCH (09:18)
[2022-07-30] MEDS: CLOPIDOGREL BISULFATE 75 MG TAB PO SCH (09:19)
[2022-07-30] MEDS: ACETAMINOPHEN/CODEINE 300MG - 30MG TAB PO PRN ×2 (09:32→22:07)
[2022-07-30] MEDS: BENZONATATE 100 MG CAP PO PRN ×2 (09:33→22:06)
[2022-07-30] MEDS: DIPHENHYDRAMINE HCL 25 MG CAP PO PRN ×2 (09:33→22:06)
[2022-07-30] MEDS: FUROSEMIDE 40 MG TAB PO SCH (17:22)
[2022-07-30] MEDS: ALBUTEROL SULF 0.083% NEB SOLN 3 ML NEB NEB PRN (18:40)
[2022-07-30] MEDS: ATORVASTATIN 20 MG TAB PO SCH (20:47)
[2022-07-30] MEDS: QUETIAPINE FUMARATE 25 MG TAB PO SCH (20:48)
[2022-07-31] VITALS (8 sets, daily range): BP systolic 111–148; BP diastolic 57–96
[2022-07-31] MEDS: FUROSEMIDE 40 MG TAB PO SCH ×2 (06:16→17:53)
[2022-07-31 06:38] LABS: ANION GAP 14.5 mmol/L (8-16); CALCIUM 8.6 mg/dL (8.4-10.2); CREATININE, SERUM 2.44 mg/dL (0.57-1.11); POTASSIUM 4.5 mmol/L (3.5-5.1)
[2022-07-31] MEDS: INSULIN LISPRO 100 UNIT/1 ML 3ML VIAL SQ SCH ×4 (07:30→21:50)
[2022-07-31] MEDS: METOPROLOL TARTRATE 25 MG TAB PO SCH ×2 (09:00→17:00)
[2022-07-31] MEDS: LORATADINE 10 MG TAB PO SCH (09:08)
[2022-07-31] MEDS: GABAPENTIN 100 MG CAP PO SCH ×3 (09:08→21:48)
[2022-07-31] MEDS: CLOPIDOGREL BISULFATE 75 MG TAB PO SCH (09:08)
[2022-07-31] MEDS: THIAMINE HCL 100 MG TAB PO SCH (09:08)
[2022-07-31] MEDS: MIDODRINE 2.5 MG TAB PO SCH ×2 (09:09→17:37)
[2022-07-31] MEDS: ASPIRIN 81 MG ENTERIC COATED PO SCH (09:10)
[2022-07-31] MEDS: ASCORBIC ACID 500 MG TAB PO SCH (09:10)
[2022-07-31] MEDS: ACETAMINOPHEN/CODEINE 300MG - 30MG TAB PO PRN ×2 (10:24→22:20)
[2022-07-31] MEDS: DIPHENHYDRAMINE HCL 25 MG CAP PO PRN ×2 (10:24→22:19)
[2022-07-31] MEDS: QUETIAPINE FUMARATE 25 MG TAB PO SCH (21:48)
[2022-07-31] MEDS: ATORVASTATIN 20 MG TAB PO SCH (21:48)
[2022-07-31] MEDS: BENZONATATE 100 MG CAP PO PRN (22:19)
[2022-08-01] VITALS (8 sets, daily range): BP systolic 100–134; BP diastolic 48–77
[2022-08-01] MEDS: FUROSEMIDE 40 MG TAB PO SCH ×2 (06:16→17:26)
[2022-08-01 07:42] LABS: ANION GAP 14.6 mmol/L (8-16); CALCIUM 8.5 mg/dL (8.4-10.2); CREATININE, SERUM 2.51 mg/dL (0.57-1.11); POTASSIUM 4.6 mmol/L (3.5-5.1)
[2022-08-01] MEDS: METOPROLOL TARTRATE 25 MG TAB PO SCH ×2 (09:00→17:00)
[2022-08-01] MEDS: ASPIRIN 81 MG ENTERIC COATED PO SCH (09:03)
[2022-08-01] MEDS: MIDODRINE 2.5 MG TAB PO SCH ×2 (09:03→17:26)
[2022-08-01] MEDS: THIAMINE HCL 100 MG TAB PO SCH (09:04)
[2022-08-01] MEDS: LORATADINE 10 MG TAB PO SCH (09:04)
[2022-08-01] MEDS: GABAPENTIN 100 MG CAP PO SCH ×3 (09:04→20:29)
[2022-08-01] MEDS: CLOPIDOGREL BISULFATE 75 MG TAB PO SCH (09:04)
[2022-08-01] MEDS: ASCORBIC ACID 500 MG TAB PO SCH (09:04)
[2022-08-01] MEDS: INSULIN LISPRO 100 UNIT/1 ML 3ML VIAL SQ SCH ×4 (09:09→20:31)
[2022-08-01] MEDS: BENZONATATE 100 MG CAP PO PRN ×2 (10:22→22:24)
[2022-08-01] MEDS: ACETAMINOPHEN/CODEINE 300MG - 30MG TAB PO PRN ×2 (10:23→22:25)
[2022-08-01] MEDS: DIPHENHYDRAMINE HCL 25 MG CAP PO PRN ×2 (10:23→22:28)
[2022-08-01] MEDS: ALBUTEROL SULF 0.083% NEB SOLN 3 ML NEB NEB PRN (18:10)
[2022-08-01] MEDS: IPRATROPIUM BROMIDE 0.02% 2.5 ML NEB NEB PRN (18:10)
[2022-08-01] MEDS: ATORVASTATIN 20 MG TAB PO SCH (20:29)
[2022-08-01] MEDS: QUETIAPINE FUMARATE 25 MG TAB PO SCH (20:29)
[2022-08-02] VITALS (8 sets, daily range): BP systolic 104–117; BP diastolic 46–77
[2022-08-02] MEDS: ALBUTEROL SULF 0.083% NEB SOLN 3 ML NEB NEB PRN ×2 (00:15→00:25)
[2022-08-02] MEDS: IPRATROPIUM BROMIDE 0.02% 2.5 ML NEB NEB PRN ×2 (00:15→01:29)
[2022-08-02] MEDS: FUROSEMIDE 40 MG TAB PO SCH ×2 (05:09→18:44)
[2022-08-02] MEDS: BENZONATATE 100 MG CAP PO PRN ×2 (05:15→22:26)
[2022-08-02] MEDS: DIPHENHYDRAMINE HCL 25 MG CAP PO PRN ×2 (05:15→22:26)
[2022-08-02 06:20] LABS: ANION GAP 13.6 mmol/L (8-16); CALCIUM 8.4 mg/dL (8.4-10.2); CREATININE, SERUM 2.76 mg/dL (0.57-1.11); POTASSIUM 4.6 mmol/L (3.5-5.1)
[2022-08-02] MEDS: INSULIN LISPRO 100 UNIT/1 ML 3ML VIAL SQ SCH ×4 (09:06→22:12)
[2022-08-02] MEDS: ASCORBIC ACID 500 MG TAB PO SCH (09:49)
[2022-08-02] MEDS: ASPIRIN 81 MG ENTERIC COATED PO SCH (09:50)
[2022-08-02] MEDS: THIAMINE HCL 100 MG TAB PO SCH (09:50)
[2022-08-02] MEDS: MIDODRINE 2.5 MG TAB PO SCH ×2 (09:50→17:04)
[2022-08-02] MEDS: LORATADINE 10 MG TAB PO SCH (09:50)
[2022-08-02] MEDS: GABAPENTIN 100 MG CAP PO SCH ×3 (09:50→22:10)
[2022-08-02] MEDS: METOPROLOL TARTRATE 25 MG TAB PO SCH ×2 (10:00→18:44)
[2022-08-02] MEDS: ACETAMINOPHEN/CODEINE 300MG - 30MG TAB PO PRN ×2 (10:00→22:26)
[2022-08-02] MEDS ORDERED: HEPARIN SOD (PORCINE) 1000 UNIT/ML SDV IV PRN (11:45)
[2022-08-02] MEDS: ATORVASTATIN 20 MG TAB PO SCH (22:10)
[2022-08-02] MEDS: QUETIAPINE FUMARATE 25 MG TAB PO SCH (22:10)
[2022-08-03] VITALS (8 sets, daily range): BP systolic 102–117; BP diastolic 58–68
[2022-08-03] MEDS: FUROSEMIDE 40 MG TAB PO SCH ×2 (06:10→17:03)
[2022-08-03] MEDS: GABAPENTIN 100 MG CAP PO SCH ×3 (09:00→22:20)
[2022-08-03] MEDS: MIDODRINE 2.5 MG TAB PO SCH ×2 (09:00→16:26)
[2022-08-03] MEDS: LORATADINE 10 MG TAB PO SCH (09:01)
[2022-08-03] MEDS: THIAMINE HCL 100 MG TAB PO SCH (09:01)
[2022-08-03] MEDS: ASCORBIC ACID 500 MG TAB PO SCH (09:01)
[2022-08-03] MEDS: METOPROLOL TARTRATE 25 MG TAB PO SCH ×2 (09:01→16:26)
[2022-08-03] MEDS: INSULIN LISPRO 100 UNIT/1 ML 3ML VIAL SQ SCH ×4 (09:03→22:19)
[2022-08-03] MEDS: ASPIRIN 81 MG ENTERIC COATED PO SCH (09:08)
[2022-08-03] MEDS: BISACODYL 5 MG TAB EC PO PRN (16:26)
[2022-08-03] MEDS: ACETAMINOPHEN/CODEINE 300MG - 30MG TAB PO PRN (17:41)
[2022-08-03] MEDS: DIPHENHYDRAMINE HCL 25 MG CAP PO PRN (22:20)
[2022-08-03] MEDS: BENZONATATE 100 MG CAP PO PRN (22:20)
[2022-08-03] MEDS: ATORVASTATIN 20 MG TAB PO SCH (22:20)
[2022-08-03] MEDS: QUETIAPINE FUMARATE 25 MG TAB PO SCH (22:20)
[2022-08-04] VITALS (9 sets, daily range): BP systolic 96–134; BP diastolic 50–77
[2022-08-04] MEDS: FUROSEMIDE 40 MG TAB PO SCH ×2 (06:00→16:47)
[2022-08-04 06:22] LABS: ANION GAP 14.4 mmol/L (8-16); CALCIUM 8.5 mg/dL (8.4-10.2); CREATININE, SERUM 2.88 mg/dL (0.57-1.11); POTASSIUM 4.4 mmol/L (3.5-5.1)
[2022-08-04] MEDS: INSULIN LISPRO 100 UNIT/1 ML 3ML VIAL SQ SCH ×4 (07:30→21:43)
[2022-08-04] MEDS: GABAPENTIN 100 MG CAP PO SCH ×3 (08:44→21:36)
[2022-08-04] MEDS: METOPROLOL TARTRATE 25 MG TAB PO SCH ×2 (08:44→16:37)
[2022-08-04] MEDS ORDERED: LIDOCAINE HCL 1% LOCAL INJ 20 ML VIAL ONE (08:55)
[2022-08-04] MEDS ORDERED: SODIUM CHLORIDE 0.9% 250ML 250 ML ONE ×2 (08:55→10:44)
[2022-08-04 10:06] LABS: BASOPHILS % 0.6 % (0.0-1.0); EOSINOPHILS # (AUTO) 0.1 (0.0-0.4); EOSINOPHILS % 1.8 % (0.0-6.0); HEMATOCRIT 31.5 % (34.2-44.1); HEMOGLOBIN 8.9 g/dL (12.0-16.0); LYMPHOCYTES # (AUTO) 1.2 (1.0-3.2); LYMPHOCYTES % 18.4 % (18.0-39.1); MEAN CORPUSCULAR HEMOGLOBIN 25.6 pg (28-32); MEAN CORPUSCULAR HGB CONC 28.3 g/dL (31-35); MEAN CORPUSCULAR VOLUME 90.5 fL (81-99); MONOCYTES # (AUTO) 0.6 (0.2-0.8); NEUTROPHILS # (AUTO) 4.6 (2.1-6.9); PLATELET COUNT 227 x10e3/uL (140-360); RED BLOOD COUNT 3.48 x10e6/uL (3.6-5.1); RED CELL DISTRIBUTION WIDTH 18.6 % (11.7-14.4)
[2022-08-04 10:19] LABS: INR 1.29; PROTHROMBIN TIME 16.6 seconds (11.9-14.5)
[2022-08-04] MEDS ORDERED: FENTANYL CITRATE/PF 100MCG/2 ML INJ ONE (10:43)
[2022-08-04] MEDS ORDERED: MIDAZOLAM HCL 2 MG/2 ML VIAL ONE (10:43)
[2022-08-04] MEDS ORDERED: HEPARIN SOD (PORCINE) 1000 UNIT/ML SDV ONE (10:43)
[2022-08-04] MEDS: THIAMINE HCL 100 MG TAB PO SCH (12:36)
[2022-08-04] MEDS: BENZONATATE 100 MG CAP PO PRN ×2 (12:36→22:03)
[2022-08-04] MEDS: ASCORBIC ACID 500 MG TAB PO SCH (12:36)
[2022-08-04] MEDS: ASPIRIN 81 MG ENTERIC COATED PO SCH (12:36)
[2022-08-04] MEDS: MIDODRINE 2.5 MG TAB PO SCH ×2 (12:36→16:44)
[2022-08-04] MEDS: LORATADINE 10 MG TAB PO SCH (12:36)
[2022-08-04] MEDS: DIPHENHYDRAMINE HCL 25 MG CAP PO PRN ×2 (12:36→22:03)
[2022-08-04] MEDS: ACETAMINOPHEN/CODEINE 300MG - 30MG TAB PO PRN (12:37)
[2022-08-04] MEDS: ALBUTEROL SULF 0.083% NEB SOLN 3 ML NEB NEB PRN ×2 (15:30→20:35)
[2022-08-04] MEDS: IPRATROPIUM BROMIDE 0.02% 2.5 ML NEB NEB PRN (20:35)
[2022-08-04] MEDS: ATORVASTATIN 20 MG TAB PO SCH (21:35)
[2022-08-04] MEDS: QUETIAPINE FUMARATE 25 MG TAB PO SCH (21:36)
[2022-08-05] VITALS (8 sets, daily range): BP systolic 106–122; BP diastolic 50–81
[2022-08-05] MEDS: ACETAMINOPHEN/CODEINE 300MG - 30MG TAB PO PRN ×2 (00:58→12:58)
[2022-08-05] MEDS: FUROSEMIDE 40 MG TAB PO SCH ×2 (05:33→17:32)
[2022-08-05] MEDS: ALBUTEROL SULF 0.083% NEB SOLN 3 ML NEB NEB PRN ×2 (07:15→19:25)
[2022-08-05] MEDS: IPRATROPIUM BROMIDE 0.02% 2.5 ML NEB NEB PRN ×2 (07:15→19:25)
[2022-08-05] MEDS: LORATADINE 10 MG TAB PO SCH (08:46)
[2022-08-05] MEDS: GABAPENTIN 100 MG CAP PO SCH ×3 (08:46→21:00)
[2022-08-05] MEDS: ASPIRIN 81 MG ENTERIC COATED PO SCH (08:47)
[2022-08-05] MEDS: MIDODRINE 2.5 MG TAB PO SCH ×2 (08:47→17:31)
[2022-08-05] MEDS: ASCORBIC ACID 500 MG TAB PO SCH (08:47)
[2022-08-05] MEDS: THIAMINE HCL 100 MG TAB PO SCH (08:47)
[2022-08-05] MEDS: INSULIN LISPRO 100 UNIT/1 ML 3ML VIAL SQ SCH ×4 (08:52→21:00)
[2022-08-05] MEDS: METOPROLOL TARTRATE 25 MG TAB PO SCH ×2 (08:53→17:00)
[2022-08-05] MEDS: DIPHENHYDRAMINE HCL 25 MG CAP PO PRN (12:57)
[2022-08-05] MEDS: CLOPIDOGREL BISULFATE 75 MG TAB PO SCH (12:58)
[2022-08-05] MEDS: BENZONATATE 100 MG CAP PO PRN (12:58)
[2022-08-05] MEDS: QUETIAPINE FUMARATE 25 MG TAB PO SCH (21:20)
[2022-08-05] MEDS: ATORVASTATIN 20 MG TAB PO SCH (21:20)
[2022-08-06] VITALS (7 sets, daily range): BP systolic 104–135; BP diastolic 63–91
[2022-08-06] MEDS: FUROSEMIDE 40 MG TAB PO SCH ×2 (05:58→17:38)
[2022-08-06 06:42] LABS: CALCIUM 8.6 mg/dL (8.4-10.2); CREATININE, SERUM 2.25 mg/dL (0.57-1.11)
[2022-08-06] MEDS: INSULIN LISPRO 100 UNIT/1 ML 3ML VIAL SQ SCH ×4 (07:30→21:04)
[2022-08-06] MEDS: GABAPENTIN 100 MG CAP PO SCH ×3 (09:00→20:06)
[2022-08-06] MEDS: CLOPIDOGREL BISULFATE 75 MG TAB PO SCH (09:00)
[2022-08-06] MEDS: ASCORBIC ACID 500 MG TAB PO SCH (09:00)
[2022-08-06] MEDS: METOPROLOL TARTRATE 25 MG TAB PO SCH ×2 (09:00→17:43)
[2022-08-06] MEDS: LORATADINE 10 MG TAB PO SCH (09:00)
[2022-08-06] MEDS: ASPIRIN 81 MG ENTERIC COATED PO SCH (09:00)
[2022-08-06] MEDS: THIAMINE HCL 100 MG TAB PO SCH (09:00)
[2022-08-06] MEDS ORDERED: HEPARIN SOD (PORCINE) 1000 UNIT/ML SDV IV PRN (10:00)
[2022-08-06] MEDS: MIDODRINE 2.5 MG TAB PO SCH ×2 (10:18→17:37)
[2022-08-06] MEDS: IPRATROPIUM BROMIDE 0.02% 2.5 ML NEB NEB PRN ×2 (11:40→20:05)
[2022-08-06] MEDS: ALBUTEROL SULF 0.083% NEB SOLN 3 ML NEB NEB PRN ×2 (11:40→20:05)
[2022-08-06] MEDS: QUETIAPINE FUMARATE 25 MG TAB PO SCH (20:06)
[2022-08-06] MEDS: ATORVASTATIN 20 MG TAB PO SCH (20:06)
[2022-08-06] MEDS: ACETAMINOPHEN/CODEINE 300MG - 30MG TAB PO PRN (20:33)
[2022-08-06] MEDS: DIPHENHYDRAMINE HCL 25 MG CAP PO PRN (20:33)
[2022-08-06] MEDS: BENZONATATE 100 MG CAP PO PRN (20:33)
[2022-08-07] VITALS (7 sets, daily range): BP systolic 104–134; BP diastolic 71–83
[2022-08-07] MEDS: FUROSEMIDE 40 MG TAB PO SCH ×2 (05:40→16:08)
[2022-08-07] MEDS: BISACODYL 5 MG TAB EC PO PRN (05:44)
[2022-08-07] MEDS: ALBUTEROL SULF 0.083% NEB SOLN 3 ML NEB NEB PRN ×2 (06:30→22:55)
[2022-08-07 07:09] LABS: ANION GAP 15.1 mmol/L (8-16); CALCIUM 8.7 mg/dL (8.4-10.2); CREATININE, SERUM 2.52 mg/dL (0.57-1.11); MAGNESIUM 1.9 MG/DL (1.3-2.1); POTASSIUM 4.1 mmol/L (3.5-5.1)
[2022-08-07] MEDS: INSULIN LISPRO 100 UNIT/1 ML 3ML VIAL SQ SCH ×4 (07:30→21:13)
[2022-08-07] MEDS: METOPROLOL TARTRATE 25 MG TAB PO SCH ×2 (09:00→16:07)
[2022-08-07] MEDS: ASPIRIN 81 MG ENTERIC COATED PO SCH (09:02)
[2022-08-07] MEDS: MIDODRINE 2.5 MG TAB PO SCH ×2 (09:02→16:07)
[2022-08-07] MEDS: THIAMINE HCL 100 MG TAB PO SCH (09:03)
[2022-08-07] MEDS: ASCORBIC ACID 500 MG TAB PO SCH (09:03)
[2022-08-07] MEDS: CLOPIDOGREL BISULFATE 75 MG TAB PO SCH (09:04)
[2022-08-07] MEDS: LORATADINE 10 MG TAB PO SCH (09:04)
[2022-08-07] MEDS: GABAPENTIN 100 MG CAP PO SCH (09:04)
[2022-08-07] MEDS: ACETAMINOPHEN/CODEINE 300MG - 30MG TAB PO PRN ×2 (09:09→21:06)
[2022-08-07] MEDS ORDERED: SODIUM CHLORIDE 0.9% 1000ML 1,000 ML ONE (10:14)
[2022-08-07] MEDS: APIXABAN 5 MG TABLET PO SCH (16:08)
[2022-08-07] MEDS: ATORVASTATIN 20 MG TAB PO SCH (21:04)
[2022-08-07] MEDS: QUETIAPINE FUMARATE 25 MG TAB PO SCH (21:05)
[2022-08-07] MEDS: BENZONATATE 100 MG CAP PO PRN (21:05)
[2022-08-07] MEDS: DIPHENHYDRAMINE HCL 25 MG CAP PO PRN (21:05)
[2022-08-07] MEDS: IPRATROPIUM BROMIDE 0.02% 2.5 ML NEB NEB PRN (22:55)
[2022-08-08] VITALS: BP 113/67
[2022-08-08 04:00] VITALS: BP 109/80
[2022-08-08] MEDS: FUROSEMIDE 40 MG TAB PO SCH (05:39)
[2022-08-08] MEDS: INSULIN LISPRO 100 UNIT/1 ML 3ML VIAL SQ SCH ×3 (07:30→16:30)
[2022-08-08 07:54] VITALS: BP 119/88
[2022-08-08 08:00] VITALS: BP 119/88
[2022-08-08] MEDS: ASCORBIC ACID 500 MG TAB PO SCH (10:00)
[2022-08-08] MEDS: LORATADINE 10 MG TAB PO SCH (10:00)
[2022-08-08] MEDS: APIXABAN 5 MG TABLET PO SCH ×2 (10:00→17:09)
[2022-08-08] MEDS: MIDODRINE 2.5 MG TAB PO SCH ×3 (10:00→17:00)
[2022-08-08] MEDS: METOPROLOL TARTRATE 25 MG TAB PO SCH (10:00)
[2022-08-08] MEDS: CLOPIDOGREL BISULFATE 75 MG TAB PO SCH (10:00)
[2022-08-08] MEDS: THIAMINE HCL 100 MG TAB PO SCH (10:00)
[2022-08-08] MEDS: BENZONATATE 100 MG CAP PO PRN (10:35)
[2022-08-08] MEDS: DIPHENHYDRAMINE HCL 25 MG CAP PO PRN (10:35)
[2022-08-08] MEDS: ACETAMINOPHEN/CODEINE 300MG - 30MG TAB PO PRN (10:37)
[2022-08-08 13:00] VITALS: BP 82/62
[2022-08-08] MEDS ORDERED: METOPROLOL TARTRATE 25 MG TAB PO SCH (15:00)
[2022-08-08 16:57] VITALS: BP 131/74
[2022-08-08] MEDS ORDERED: FUROSEMIDE 40 MG TAB PO SCH (18:00)
== END 2022-08-08 18:56 | DRG 291 ==
LOC: ER 09:40 → ERHOLD 11:45 → MED/SURG3 18:06
PROVIDERS: ADMIT Internal Medicine; ATTEND Internal Medicine
PROC: 05HM33Z Insertion of Infusion Device into Right Internal Jugular Vein, Percutaneous Approach (ICD-10-PCS; 2022-07-22)
PROC: 5A1D70Z Performance of Urinary Filtration, Intermittent, Less than 6 Hours Per Day (ICD-10-PCS; principal; 2022-07-23)
PROC: 05HM33Z Insertion of Infusion Device into Right Internal Jugular Vein, Percutaneous Approach (ICD-10-PCS; 2022-08-04)
DX: I13.2 Hypertensive heart and chronic kidney disease with heart failure and with stage 5 chronic kidney disease, or end stage renal disease (principal); I50.43 Acute on chronic combined systolic (congestive) and diastolic (congestive) heart failure; N18.6 End stage renal disease; J96.21 Acute and chronic respiratory failure with hypoxia; J18.9 Pneumonia, unspecified organism; N39.0 Urinary tract infection, site not specified; F11.20 Opioid dependence, uncomplicated; L97.429 Non-pressure chronic ulcer of left heel and midfoot with unspecified severity; J44.1 Chronic obstructive pulmonary disease with (acute) exacerbation; Z68.41 Body mass index [BMI] 40.0-44.9, adult; E87.1 Hypo-osmolality and hyponatremia; N17.9 Acute kidney failure, unspecified; E11.22 Type 2 diabetes mellitus with diabetic chronic kidney disease; E66.01 Morbid (severe) obesity due to excess calories; D63.1 Anemia in chronic kidney disease; I25.10 Atherosclerotic heart disease of native coronary artery without angina pectoris; E11.51 Type 2 diabetes mellitus with diabetic peripheral angiopathy without gangrene; K21.9 Gastro-esophageal reflux disease without esophagitis; F32.A Depression, unspecified; F41.9 Anxiety disorder, unspecified; G89.4 Chronic pain syndrome; R33.9 Retention of urine, unspecified; I25.2 Old myocardial infarction; F10.10 Alcohol abuse, uncomplicated; I49.1 Atrial premature depolarization; L89.152 Pressure ulcer of sacral region, stage 2; E11.621 Type 2 diabetes mellitus with foot ulcer; E11.40 Type 2 diabetes mellitus with diabetic neuropathy, unspecified; R80.9 Proteinuria, unspecified; E78.00 Pure hypercholesterolemia, unspecified; E87.5 Hyperkalemia; I42.9 Cardiomyopathy, unspecified; L89.309 Pressure ulcer of unspecified buttock, unspecified stage; Z74.01 Bed confinement status; Z99.2 Dependence on renal dialysis; Z99.3 Dependence on wheelchair; Z95.5 Presence of coronary angioplasty implant and graft; Z99.81 Dependence on supplemental oxygen; Z90.49 Acquired absence of other specified parts of digestive tract; Z20.822 Contact with and (suspected) exposure to COVID-19; Z87.891 Personal history of nicotine dependence; Z88.2 Allergy status to sulfonamides; Z89.412 Acquired absence of left great toe; Z79.82 Long term (current) use of aspirin
CPT/HCPCS: 36415; 36556; 36558; 51700; 71045; 74176; 74470; 76770; 76937; 77001; 80048; 80053; 80061; 81001; 81015; 81050; 82550; 82553; 82570; 82948; 83735; 83880; 84156; 84484; 85025; 85610; 85730; 86704; 86706; 87040; 87086; 87340; 90962; 93005; 93306; 94799; 96372; 99152; 99153; 99252; 99285; C1752; C1769; C1892; J0690; J1644; J1940; J2001; J2250; J2543; J3411; J7030; J7050; Q0162

== ENCOUNTER 2022-08-11 21:03 | Emergency (ER) | payer MEDICARE ==
[~2022-08-11] VITALS: Ht 320 cm; Wt 115.7 kg
[2022-08-11 21:38] LABS: HEMATOCRIT 30.5 % (34.2-44.1)
[2022-08-11 22:59] VITALS: BP 106/77
== END 2022-08-11 23:33 ==
LOC: ER 21:08
DX: D64.9 Anemia, unspecified (principal); L89.159 Pressure ulcer of sacral region, unspecified stage; Z99.81 Dependence on supplemental oxygen; I10 Essential (primary) hypertension; E11.9 Type 2 diabetes mellitus without complications; E78.5 Hyperlipidemia, unspecified; I25.10 Atherosclerotic heart disease of native coronary artery without angina pectoris; N28.9 Disorder of kidney and ureter, unspecified; J44.9 Chronic obstructive pulmonary disease, unspecified; I50.9 Heart failure, unspecified; F41.9 Anxiety disorder, unspecified; K21.9 Gastro-esophageal reflux disease without esophagitis
CPT/HCPCS: 36415; 85014; 85018; 99283

== ENCOUNTER 2022-08-15 16:46 | Inpatient (IN) | payer MEDICARE ==
[~2022-08-15] VITALS: Ht 172.7 cm; Wt 120.7 kg
[2022-08-15 17:33] LABS: BASOPHILS # (AUTO) 0.1 (0.0-0.1); BASOPHILS % 0.6 % (0.0-1.0); EOSINOPHILS # (AUTO) 0.2 (0.0-0.4); EOSINOPHILS % 2.2 % (0.0-6.0); HEMATOCRIT 29.2 % (34.2-44.1); HEMOGLOBIN 8.7 g/dL (12.0-16.0); LYMPHOCYTES # (AUTO) 1.2 (1.0-3.2); LYMPHOCYTES % 14.7 % (18.0-39.1); MEAN CORPUSCULAR HGB CONC 29.8 g/dL (31-35); MEAN CORPUSCULAR VOLUME 87.4 fL (81-99); MONOCYTES # (AUTO) 0.6 (0.2-0.8); MONOCYTES % 7.4 % (4.4-11.3); NEUTROPHILS # (AUTO) 5.8 (2.1-6.9); NEUTROPHILS % 74.6 % (38.7-80.0); PLATELET COUNT 299 x10e3/uL (140-360); RED BLOOD COUNT 3.34 x10e6/uL (3.6-5.1); RED CELL DISTRIBUTION WIDTH 22.3 % (11.7-14.4)
[2022-08-15 17:47] LABS: ANION GAP 18.7 mmol/L (8-16); CALCIUM 8.6 mg/dL (8.4-10.2); CREATININE, SERUM 3.83 mg/dL (0.57-1.11); POTASSIUM 3.7 mmol/L (3.5-5.1)
[2022-08-15] MEDS ORDERED: ONDANSETRON HCL INJ 2MG/ML 2ML 2 MG/ML VIAL IV PRN (20:15)
[2022-08-15] MEDS ORDERED: SODIUM CHLORIDE FLUSH 10 ML SYR INJ PRN (20:15)
[2022-08-15 21:30] VITALS: BP 117/86; PULSE 111; RESP 18; TEMP 97.3; O2SAT 97
[2022-08-15 22:00] VITALS: BP 117/86; PULSE 111; RESP 18; TEMP 97.3; O2SAT 97
[2022-08-16] VITALS (10 sets, daily range): BP systolic 97–117; BP diastolic 59–86; PULSE 109–112; RESP 18–20; TEMP 97.1–98.9; O2SAT 96–100
[2022-08-16 05:22] LABS: BASOPHILS # (AUTO) 0.1 (0.0-0.1); BASOPHILS % 0.8 % (0.0-1.0); EOSINOPHILS # (AUTO) 0.1 (0.0-0.4); EOSINOPHILS % 2.2 % (0.0-6.0); HEMATOCRIT 31.4 % (34.2-44.1); HEMOGLOBIN 9.3 g/dL (12.0-16.0); LYMPHOCYTES % 15.6 % (18.0-39.1); MEAN CORPUSCULAR HEMOGLOBIN 26.1 pg (28-32); MEAN CORPUSCULAR HGB CONC 29.6 g/dL (31-35); MEAN CORPUSCULAR VOLUME 88.2 fL (81-99); MONOCYTES # (AUTO) 0.5 (0.2-0.8); MONOCYTES % 7.4 % (4.4-11.3); NEUTROPHILS # (AUTO) 4.8 (2.1-6.9); NEUTROPHILS % 73.7 % (38.7-80.0); PLATELET COUNT 281 x10e3/uL (140-360); RED BLOOD COUNT 3.56 x10e6/uL (3.6-5.1); RED CELL DISTRIBUTION WIDTH 22.3 % (11.7-14.4)
[2022-08-16 05:43] LABS: ALBUMIN 2.9 g/dL (3.5-5.0); ALBUMIN/GLOBULIN RATIO 0.6 (0.8-2.0); ANION GAP 21.8 mmol/L (8-16); CALCIUM 8.8 mg/dL (8.4-10.2); CREATININE, SERUM 3.85 mg/dL (0.57-1.11); POTASSIUM 3.8 mmol/L (3.5-5.1)
[2022-08-16] MEDS ORDERED: DIPHENHYDRAMINE HCL 25 MG CAP PO PRN (09:45)
[2022-08-16] MEDS ORDERED: CHOLESTYRAMINE 4 GM PACKET PO PRN (09:45)
[2022-08-16 10:11] LABS: HYPOCHROMASIA SLIGHT; PLATELET ESTIMATE ADEQUATE; PLATELET MORPHOLOGY COMMENT NORMAL
[2022-08-16] MEDS: CLONAZEPAM 1 MG TAB PO SCH (10:34)
[2022-08-16] MEDS: SERTRALINE HCL 100 MG TAB PO SCH (10:34)
[2022-08-16] MEDS ORDERED: DEXTROSE 50% SYRINGE 50 ML IV PRN (10:45)
[2022-08-16] MEDS: INSULIN LISPRO 100 UNIT/1 ML 3ML VIAL SQ SCH ×3 (12:24→21:00)
[2022-08-16] MEDS: GABAPENTIN 100 MG CAP PO SCH (14:53)
[2022-08-16] MEDS: LACTOBACILLUS ACIDOPHILUS CAPSULE PO SCH (14:53)
[2022-08-16] MEDS: DOCUSATE SODIUM 100 MG CAP PO SCH (16:55)
[2022-08-16] MEDS: SODIUM BICARBONATE 650 MG TAB PO SCH (16:56)
[2022-08-16] MEDS: FERROUS SULFATE 325 MG TAB PO SCH (16:56)
[2022-08-16] MEDS: METOPROLOL TARTRATE 25 MG TAB PO SCH (17:00)
[2022-08-16] MEDS ORDERED: ACETAMINOPHEN325 M1 PO (19:50)
[2022-08-16] MEDS ORDERED: ALBUTEROL0.63 MG/3 NEB (19:51)
[2022-08-16] MEDS ORDERED: ASCORBIC ACID500 M2 PO (19:52)
[2022-08-16] MEDS ORDERED: BISACODYL5 MG PO (19:58)
[2022-08-16] MEDS ORDERED: BENZONATATE100 MG PO (19:58)
[2022-08-16] MEDS ORDERED: ELIQUIS5 MG PO (20:15)
[2022-08-16] MEDS ORDERED: HEPARIN 500 UNITS/5ML MDV INJ ONE (20:15)
[2022-08-16] MEDS ORDERED: ALBUMIN 25% 12.5GM 0.25 GM/ML BTL IV ONE (20:15)
[2022-08-16] MEDS ORDERED: IPRATROPIU0.2 MG/1 M INH (20:18)
[2022-08-16] MEDS ORDERED: LORATADINE10 MG PO (20:19)
[2022-08-16] MEDS ORDERED: MIDODRINE HCL5 MG PO (20:23)
[2022-08-16] MEDS ORDERED: NOVOLIN R100 UNIT/1 (20:25)
[2022-08-16] MEDS ORDERED: ONDANSETRON ODT8 MG PO (20:27)
[2022-08-16] MEDS ORDERED: VITAMIN B-1100 M1 PO (20:29)
[2022-08-16] MEDS ORDERED: SEROQUEL50 MG PO (20:29)
[2022-08-16] MEDS ORDERED: ACETAMIN-CODE12.5 ML (20:33)
[2022-08-16] MEDS ORDERED: QUETIAPINE FUMARATE 25 MG TAB PO SCH (21:00)
[2022-08-16] MEDS ORDERED: HEPARIN SOD (PORCINE) 1000 UNIT/ML SDV IV ONE (22:00)
[2022-08-17] VITALS (36 sets, daily range): BP systolic 76–117; BP diastolic 39–84; PULSE 108–130; RESP 0–22; TEMP 97–98.7; O2SAT 91–100
[2022-08-17] MEDS: CLONAZEPAM 1 MG TAB PO SCH ×2 (00:37→09:44)
[2022-08-17] MEDS: LACTOBACILLUS ACIDOPHILUS CAPSULE PO SCH ×5 (00:37→21:00)
[2022-08-17] MEDS: GABAPENTIN 100 MG CAP PO SCH ×5 (00:37→21:00)
[2022-08-17] MEDS: ATORVASTATIN 20 MG TAB PO SCH ×2 (00:37→21:00)
[2022-08-17] MEDS ORDERED: FUROSEMIDE 40 MG TAB PO SCH (09:00)
[2022-08-17] MEDS ORDERED: CLOPIDOGREL BISULFATE 75 MG TAB PO SCH (09:00)
[2022-08-17] MEDS: SODIUM BICARBONATE 650 MG TAB PO SCH ×2 (09:43→17:00)
[2022-08-17] MEDS: DOCUSATE SODIUM 100 MG CAP PO SCH ×2 (09:43→17:00)
[2022-08-17] MEDS: SERTRALINE HCL 100 MG TAB PO SCH (09:44)
[2022-08-17] MEDS: FERROUS SULFATE 325 MG TAB PO SCH ×2 (09:44→17:00)
[2022-08-17] MEDS: INSULIN LISPRO 100 UNIT/1 ML 3ML VIAL SQ SCH ×4 (09:45→21:00)
[2022-08-17] MEDS ORDERED: BISACODYL 5 MG TAB EC PO PRN (10:45)
[2022-08-17] MEDS ORDERED: LORATADINE 10 MG TAB PO PRN (10:45)
[2022-08-17] MEDS ORDERED: SODIUM CHLORIDE 0.9% 1000ML 2,000 ML IV PRN (12:00)
[2022-08-17] MEDS ORDERED: HEPARIN SOD (PORCINE) 1000 UNIT/ML SDV IV PRN (12:00)
[2022-08-17] MEDS ORDERED: ALBUMIN 25% 12.5GM 0.25 GM/ML BTL IV PRN (12:00)
[2022-08-17] MEDS: MIDODRINE HCL 5 MG TABLET PO SCH ×2 (12:35→16:00)
[2022-08-17] MEDS: BENZONATATE 100 MG CAP PO SCH ×2 (12:35→17:07)
[2022-08-17] MEDS: METOPROLOL TARTRATE 25 MG TAB PO SCH ×2 (12:36→17:00)
[2022-08-17] MEDS ORDERED: SODIUM BICARBONATE 8.4% SYRING 50 ML ONE (15:47)
[2022-08-17] MEDS ORDERED: FENTANYL 2000MCG/NS 250 250 ML IV PRN (16:30)
[2022-08-17 16:33] LABS: BASOPHILS # (AUTO) 0.1 (0.0-0.1); BASOPHILS % 0.6 % (0.0-1.0); EOSINOPHILS # (AUTO) 0.1 (0.0-0.4); EOSINOPHILS % 1.4 % (0.0-6.0); LYMPHOCYTES # (AUTO) 2.7 (1.0-3.2); LYMPHOCYTES % 31.3 % (18.0-39.1); MEAN CORPUSCULAR HGB CONC 28.1 g/dL (31-35); MEAN CORPUSCULAR VOLUME 92.5 fL (81-99); MONOCYTES # (AUTO) 0.6 (0.2-0.8); MONOCYTES % 7.2 % (4.4-11.3); NEUTROPHILS # (AUTO) 4.9 (2.1-6.9); NEUTROPHILS % 57.6 % (38.7-80.0); PLATELET COUNT 284 x10e3/uL (140-360); RED BLOOD COUNT 3.46 x10e6/uL (3.6-5.1); RED CELL DISTRIBUTION WIDTH 22.3 % (11.7-14.4)
[2022-08-17] MEDS: PROPOFOL IV EMULSION 10MG/ML 100 ML IV PRN ×2 (16:43→20:38)
[2022-08-17] MEDS: EPINEPHRINE HCL 1:1000 1ML 4 MG in DEXTROSE 5% 250ML 250 ML IV SCH ×2 (16:43→23:52)
[2022-08-17 16:59] LABS: ALBUMIN 2.7 g/dL (3.5-5.0); ALBUMIN/GLOBULIN RATIO 0.6 (0.8-2.0); ANION GAP 22.5 mmol/L (8-16); CALCIUM 8.9 mg/dL (8.4-10.2); CREATININE, SERUM 3.37 mg/dL (0.57-1.11); POTASSIUM 4.5 mmol/L (3.5-5.1)
[2022-08-17] MEDS ORDERED: APIXABAN 5 MG TABLET PO SCH (17:00)
[2022-08-17] MEDS ORDERED: Vancomycin IV 1.25 GM in SODIUM CHLORIDE 0.9% 250ML 250 ML IV ONE (20:15)
[2022-08-17] MEDS ORDERED: CLONAZEPAM 0.5 MG TAB PO SCH (21:00)
[2022-08-17 21:52] LABS: ABG HCO3 28 mmol/L (22-26); ABG PCO2 38 mmHg (35-45); ABG PH 7.48 (7.35-7.45); ABG PO2 336 mmHg (80-105); ABG TCO2 29
[2022-08-17] MEDS ORDERED: EPINEPHRINE HCL 1:1000 1ML 1 MG/ML AMP ONE ×3 (23:27→23:28)
[2022-08-17] MEDS ORDERED: DEXTROSE 5% 250ML 250 ML IV ONE (23:31)
[2022-08-17] MEDS: Doxycycline IV 100 MG in SODIUM CHLORIDE 0.9% 100 ML IV SCH (23:47)
[2022-08-18] VITALS (102 sets, daily range): BP systolic 74–132; BP diastolic 46–86; PULSE 108–131; RESP 0–22; TEMP 97.1–97.7; O2SAT 93–100
[2022-08-18] MEDS: PROPOFOL IV EMULSION 10MG/ML 100 ML IV PRN ×4 (02:39→21:41)
[2022-08-18 06:40] LABS: BASOPHILS # (AUTO) 0.1 (0.0-0.1); BASOPHILS % 0.4 % (0.0-1.0); EOSINOPHILS % 0.1 % (0.0-6.0); HEMATOCRIT 29.2 % (34.2-44.1); HEMOGLOBIN 8.7 g/dL (12.0-16.0); LYMPHOCYTES # (AUTO) 0.8 (1.0-3.2); LYMPHOCYTES % 5.7 % (18.0-39.1); MEAN CORPUSCULAR HEMOGLOBIN 26.4 pg (28-32); MEAN CORPUSCULAR HGB CONC 29.8 g/dL (31-35); MEAN CORPUSCULAR VOLUME 88.8 fL (81-99); MONOCYTES # (AUTO) 0.9 (0.2-0.8); MONOCYTES % 6.8 % (4.4-11.3); NEUTROPHILS # (AUTO) 11.4 (2.1-6.9); NEUTROPHILS % 86.5 % (38.7-80.0); PLATELET COUNT 347 x10e3/uL (140-360); RED BLOOD COUNT 3.29 x10e6/uL (3.6-5.1); RED CELL DISTRIBUTION WIDTH 21.8 % (11.7-14.4)
[2022-08-18 07:11] LABS: ALBUMIN 2.9 g/dL (3.5-5.0); ALBUMIN/GLOBULIN RATIO 0.7 (0.8-2.0); ANION GAP 21.6 mmol/L (8-16); CALCIUM 8.9 mg/dL (8.4-10.2); CREATININE, SERUM 3.45 mg/dL (0.57-1.11); MAGNESIUM 1.8 MG/DL (1.3-2.1); PHOSPHORUS 5.3 MG/DL (2.3-4.7); POTASSIUM 3.6 mmol/L (3.5-5.1)
[2022-08-18 08:15] LABS: PLATELET ESTIMATE ADEQUATE; PLATELET MORPHOLOGY COMMENT NORMAL; RBC MORPHOLOGY COMMENT NORMAL
[2022-08-18] MEDS: INSULIN LISPRO 100 UNIT/1 ML 3ML VIAL SQ SCH ×4 (08:41→21:00)
[2022-08-18] MEDS ORDERED: FAMOTIDINE 20 MG/2 ML VIAL IV SCH (09:00)
[2022-08-18] MEDS ORDERED: ASCORBIC ACID 500 MG TAB PO SCH (09:00)
[2022-08-18] MEDS: OCTREOTIDE ACETATE 500 MCG in SODIUM CHLORIDE 0.9% 250ML 249 ML IV SCH (09:55)
[2022-08-18] MEDS: MIDODRINE HCL 5 MG TABLET PO SCH ×3 (09:55→22:15)
[2022-08-18] MEDS: Doxycycline IV 100 MG in SODIUM CHLORIDE 0.9% 100 ML IV SCH (11:00)
[2022-08-18 11:10] LABS: INR 1.87
[2022-08-18] MEDS ORDERED: REMDESIVIR 100MG 200 MG in SODIUM CHLORIDE 0.9% 100 ML IV ONE (12:00)
[2022-08-18 15:30] LABS: ABG HCO3 31 mmol/L (22-26); ABG PCO2 48 mmHg (35-45); ABG PH 7.43 (7.35-7.45); ABG PO2 151 mmHg (80-105); ABG TCO2 33
[2022-08-18] MEDS: EPINEPHRINE HCL 1:1000 1ML 4 MG in DEXTROSE 5% 250ML 250 ML IV SCH (19:16)
[2022-08-18] MEDS ORDERED: PHYTONADIONE 10 MG/ML AMP IV ONE (22:30)
[2022-08-18] MEDS ORDERED: SUCRALFATE 1 GM/10 ML SUSP NG ONE (22:30)
[2022-08-18 22:43] LABS: % IRON SATURATION 6 % (15-50); IRON 19 ug/dL (50-170); TOTAL IRON BINDING CAPACITY 318 ug/dL (261-478); TRANSFERRIN 227 mg/dL (180-382)
[2022-08-19] VITALS (72 sets, daily range): BP systolic 86–133; BP diastolic 59–86; PULSE 97–140; RESP 0–25; TEMP 97.7–99; O2SAT 97–100
[2022-08-19] MEDS: PROPOFOL IV EMULSION 10MG/ML 100 ML IV PRN ×2 (03:24→08:58)
[2022-08-19] MEDS: OCTREOTIDE ACETATE 500 MCG in SODIUM CHLORIDE 0.9% 250ML 249 ML IV SCH (04:45)
[2022-08-19] MEDS: MIDODRINE HCL 5 MG TABLET PO SCH ×3 (05:52→21:51)
[2022-08-19] MEDS: SUCRALFATE 1 GM/10 ML SUSP NG SCH ×5 (05:52→23:13)
[2022-08-19 06:47] LABS: BASOPHILS # (AUTO) 0.1 (0.0-0.1); BASOPHILS % 0.6 % (0.0-1.0); EOSINOPHILS # (AUTO) 0.1 (0.0-0.4); EOSINOPHILS % 0.8 % (0.0-6.0); HEMOGLOBIN 8.9 g/dL (12.0-16.0); LYMPHOCYTES # (AUTO) 0.7 (1.0-3.2); LYMPHOCYTES % 4.8 % (18.0-39.1); MEAN CORPUSCULAR HGB CONC 29.7 g/dL (31-35); MEAN CORPUSCULAR VOLUME 90.9 fL (81-99); MONOCYTES # (AUTO) 0.9 (0.2-0.8); MONOCYTES % 6.2 % (4.4-11.3); NEUTROPHILS # (AUTO) 12.4 (2.1-6.9); PLATELET COUNT 273 x10e3/uL (140-360)
[2022-08-19 07:15] LABS: ALBUMIN 2.5 g/dL (3.5-5.0); ALBUMIN/GLOBULIN RATIO 0.6 (0.8-2.0); ANION GAP 20.4 mmol/L (8-16); CALCIUM 8.3 mg/dL (8.4-10.2); CREATININE, SERUM 2.52 mg/dL (0.57-1.11); POTASSIUM 3.4 mmol/L (3.5-5.1)
[2022-08-19 08:09] LABS: ABG HCO3 28 mmol/L (22-26); ABG PCO2 38 mmHg (35-45); ABG PH 7.47 (7.35-7.45); ABG PO2 58 mmHg (80-105); ABG TCO2 29
[2022-08-19 08:53] LABS: ANISOCYTOSIS SLIGHT; PLATELET ESTIMATE ADEQUATE; PLATELET MORPHOLOGY COMMENT NORMAL; POIKILOCYTOSIS SLIGHT; RBC MORPHOLOGY COMMENT NORMAL
[2022-08-19] MEDS: INSULIN LISPRO 100 UNIT/1 ML 3ML VIAL SQ SCH ×4 (09:06→21:59)
[2022-08-19] MEDS: IRON SUCROSE 100 MG in SODIUM CHLORIDE 0.9% 100 ML IV SCH (10:30)
[2022-08-19] MEDS ORDERED: REMDESIVIR 100MG 100 MG in SODIUM CHLORIDE 0.9% 100 ML IV SCH (14:00)
[2022-08-19] MEDS ORDERED: POTASSIUM CHLORIDE 20MEQ/100ML 100 ML IV ONE (15:15)
[2022-08-19] MEDS: METHYLPREDNISOLONE SOD SUCC 40 MG/ML VIAL 1ML IV SCH ×2 (16:04→21:49)
[2022-08-19] MEDS: SODIUM CHLORIDE 0.9% 1000ML 1,000 ML IV SCH (16:04)
[2022-08-19] MEDS: NOREPINEPHRINE 8 MG/D5W 250 ML 250 ML IV SCH (16:53)
[2022-08-19] MEDS: NYSTATIN 15 GM POWDER UD BTL TOP SCH (20:28)
[2022-08-19] MEDS: BALSAM PERU/CASTOR OIL 60 GM OINT...G. TP SCH (20:28)
[2022-08-19] MEDS ORDERED: AMIODARONE HCL 150 MG/100 ML BAG IV ONE (21:00)
[2022-08-19] MEDS ORDERED: AMIODARONE 900MG 500 ML IV ONE (21:01)
[2022-08-20] VITALS (80 sets, daily range): BP systolic 80–124; BP diastolic 67–109; PULSE 45–120; RESP 0–23; TEMP 97.5–97.9; O2SAT 100
[2022-08-20] MEDS: PROPOFOL IV EMULSION 10MG/ML 100 ML IV PRN ×2 (00:18→07:18)
[2022-08-20] MEDS: OCTREOTIDE ACETATE 500 MCG in SODIUM CHLORIDE 0.9% 250ML 249 ML IV SCH ×2 (00:23→19:13)
[2022-08-20] MEDS: SODIUM CHLORIDE 0.9% 1000ML 1,000 ML IV SCH ×4 (00:24→22:29)
[2022-08-20] MEDS: SUCRALFATE 1 GM/10 ML SUSP NG SCH ×3 (05:21→17:15)
[2022-08-20] MEDS: MIDODRINE HCL 5 MG TABLET PO SCH ×3 (05:21→20:14)
[2022-08-20 07:00] LABS: BASOPHILS % 0.1 % (0.0-1.0); HEMATOCRIT 33.8 % (34.2-44.1); LYMPHOCYTES # (AUTO) 0.5 (1.0-3.2); LYMPHOCYTES % 3.2 % (18.0-39.1); MEAN CORPUSCULAR HGB CONC 29.6 g/dL (31-35); MONOCYTES # (AUTO) 0.2 (0.2-0.8); MONOCYTES % 1.3 % (4.4-11.3); NEUTROPHILS # (AUTO) 13.4 (2.1-6.9); PLATELET COUNT 289 x10e3/uL (140-360); RED BLOOD COUNT 3.84 x10e6/uL (3.6-5.1); RED CELL DISTRIBUTION WIDTH 21.9 % (11.7-14.4)
[2022-08-20 07:07] LABS: ALBUMIN 2.4 g/dL (3.5-5.0); ALBUMIN/GLOBULIN RATIO 0.5 (0.8-2.0); ANION GAP 18.9 mmol/L (8-16); CALCIUM 8.2 mg/dL (8.4-10.2); CREATININE, SERUM 2.72 mg/dL (0.57-1.11); POTASSIUM 3.9 mmol/L (3.5-5.1)
[2022-08-20] MEDS: INSULIN LISPRO 100 UNIT/1 ML 3ML VIAL SQ SCH ×4 (07:25→20:51)
[2022-08-20 07:53] LABS: INR 1.47; PARTIAL THROMBOPLASTIN TIME 38.1 seconds (23.8-35.5); PROTHROMBIN TIME 18.3 seconds (11.9-14.5)
[2022-08-20] MEDS: IRON SUCROSE 100 MG in SODIUM CHLORIDE 0.9% 100 ML IV SCH (08:28)
[2022-08-20] MEDS: METHYLPREDNISOLONE SOD SUCC 40 MG/ML VIAL 1ML IV SCH ×2 (08:28→20:14)
[2022-08-20] MEDS: BALSAM PERU/CASTOR OIL 60 GM OINT...G. TP SCH (08:29)
[2022-08-20] MEDS: NYSTATIN 15 GM POWDER UD BTL TOP SCH ×2 (08:29→16:09)
[2022-08-20] MEDS: DEXMEDETOMIDINE 400MCG/NS100ML 100 ML IV PRN ×2 (09:44→19:14)
[2022-08-20 10:01] LABS: ABG HCO3 28 mmol/L (22-26); ABG PCO2 51 mmHg (35-45); ABG PH 7.35 (7.35-7.45); ABG PO2 96 mmHg (80-105); ABG TCO2 30
[2022-08-20 10:05] LABS: BAND NEUTROPHILS % (MANUAL) 2 %; LYMPHOCYTES % (MANUAL) 7 % (19-48); NEUTROPHILS % (MANUAL) 91 % (40-74)
[2022-08-20 10:06] LABS: ANISOCYTOSIS MARKED; PLATELET ESTIMATE ADEQUATE; PLATELET MORPHOLOGY COMMENT NORMAL; RBC MORPHOLOGY COMMENT ABNORMAL; TOXIC GRANULATION SLIGHT; VACUOLE,WBC SLIGHT
[2022-08-20 10:07] LABS: HYPOCHROMASIA SLIGHT
[2022-08-20] MEDS: NOREPINEPHRINE 8 MG/D5W 250 ML 250 ML IV SCH (15:00)
[2022-08-20] MEDS ORDERED: FUROSEMIDE INJ 10 MG/ML 4 ML VIAL IV ONE (17:30)
[2022-08-20] MEDS: AMIODARONE 900MG 900 MG in Premix Bag 1 BAG IV SCH (19:39)
[2022-08-21] VITALS (67 sets, daily range): BP systolic 87–123; BP diastolic 61–97; PULSE 58–109; RESP 0–25; TEMP 97.4–97.9; O2SAT 100
[2022-08-21] MEDS: SUCRALFATE 1 GM/10 ML SUSP NG SCH ×5 (02:04→23:38)
[2022-08-21] MEDS: DEXMEDETOMIDINE 400MCG/NS100ML 100 ML IV PRN ×2 (02:04→19:43)
[2022-08-21] MEDS: MIDODRINE HCL 5 MG TABLET PO SCH ×3 (06:04→23:00)
[2022-08-21 06:46] LABS: BASOPHILS % 0.2 % (0.0-1.0); HEMATOCRIT 32.7 % (34.2-44.1); HEMOGLOBIN 9.5 g/dL (12.0-16.0); LYMPHOCYTES # (AUTO) 0.9 (1.0-3.2); LYMPHOCYTES % 7.4 % (18.0-39.1); MEAN CORPUSCULAR HGB CONC 29.1 g/dL (31-35); MEAN CORPUSCULAR VOLUME 89.6 fL (81-99); MONOCYTES # (AUTO) 0.6 (0.2-0.8); MONOCYTES % 4.3 % (4.4-11.3); NEUTROPHILS # (AUTO) 11.2 (2.1-6.9); NEUTROPHILS % 87.6 % (38.7-80.0); PLATELET COUNT 300 x10e3/uL (140-360); RED BLOOD COUNT 3.65 x10e6/uL (3.6-5.1); RED CELL DISTRIBUTION WIDTH 21.3 % (11.7-14.4)
[2022-08-21 07:05] LABS: ALBUMIN 2.4 g/dL (3.5-5.0); ALBUMIN/GLOBULIN RATIO 0.6 (0.8-2.0); ANION GAP 19.2 mmol/L (8-16); CALCIUM 8.2 mg/dL (8.4-10.2); CREATININE, SERUM 2.9 mg/dL (0.57-1.11); POTASSIUM 4.2 mmol/L (3.5-5.1)
[2022-08-21] MEDS: BALSAM PERU/CASTOR OIL 60 GM OINT...G. TP SCH (08:15)
[2022-08-21] MEDS: NYSTATIN 15 GM POWDER UD BTL TOP SCH ×2 (08:15→16:16)
[2022-08-21] MEDS: METHYLPREDNISOLONE SOD SUCC 40 MG/ML VIAL 1ML IV SCH ×2 (08:16→21:00)
[2022-08-21] MEDS: IRON SUCROSE 100 MG in SODIUM CHLORIDE 0.9% 100 ML IV SCH (08:16)
[2022-08-21] MEDS: INSULIN LISPRO 100 UNIT/1 ML 3ML VIAL SQ SCH ×4 (08:17→21:00)
[2022-08-21 08:37] LABS: PLATELET ESTIMATE ADEQUATE; PLATELET MORPHOLOGY COMMENT NORMAL; RBC MORPHOLOGY COMMENT NORMAL
[2022-08-21] MEDS ORDERED: ALBUMIN 25% 12.5GM 0.25 GM/ML BTL IV PRN (09:30)
[2022-08-21 10:32] LABS: ABG HCO3 25 mmol/L (22-26); ABG PCO2 38 mmHg (35-45); ABG PH 7.43 (7.35-7.45); ABG PO2 149 mmHg (80-105); ABG TCO2 27
[2022-08-21] MEDS: NOREPINEPHRINE 8 MG/D5W 250 ML 250 ML IV SCH (15:00)
[2022-08-21] MEDS: SODIUM CHLORIDE 0.9% 1000ML 1,000 ML IV SCH ×2 (16:45→23:40)
[2022-08-21] MEDS: OCTREOTIDE ACETATE 500 MCG in SODIUM CHLORIDE 0.9% 250ML 249 ML IV SCH (17:16)
[2022-08-21] MEDS ORDERED: AMIODARONE 900MG 500 ML IV ONE (20:00)
[2022-08-21] MEDS: AMIODARONE 900MG 900 MG in Premix Bag 1 BAG IV SCH (20:03)
[2022-08-21] MEDS ORDERED: THIAMINE HCL INJ 100 MG/ML 2ML VIAL ONE (22:50)
[2022-08-22] VITALS (103 sets, daily range): BP systolic 102–160; BP diastolic 69–147; PULSE 28–108; RESP 0–17; TEMP 97.4–98.3; O2SAT 100
[2022-08-22] MEDS: DEXMEDETOMIDINE 400MCG/NS100ML 100 ML IV PRN ×2 (02:37→10:54)
[2022-08-22] MEDS: SUCRALFATE 1 GM/10 ML SUSP NG SCH ×4 (06:04→23:25)
[2022-08-22] MEDS: MIDODRINE HCL 5 MG TABLET PO SCH ×3 (06:05→21:57)
[2022-08-22 06:49] LABS: BASOPHILS % 0.1 % (0.0-1.0); HEMATOCRIT 33.7 % (34.2-44.1); HEMOGLOBIN 9.9 g/dL (12.0-16.0); LYMPHOCYTES # (AUTO) 0.7 (1.0-3.2); LYMPHOCYTES % 7.8 % (18.0-39.1); MEAN CORPUSCULAR HEMOGLOBIN 25.9 pg (28-32); MEAN CORPUSCULAR HGB CONC 29.4 g/dL (31-35); MEAN CORPUSCULAR VOLUME 88.2 fL (81-99); MONOCYTES # (AUTO) 0.3 (0.2-0.8); MONOCYTES % 3.1 % (4.4-11.3); NEUTROPHILS # (AUTO) 8.3 (2.1-6.9); NEUTROPHILS % 88.5 % (38.7-80.0); PLATELET COUNT 296 x10e3/uL (140-360); RED BLOOD COUNT 3.82 x10e6/uL (3.6-5.1)
[2022-08-22 07:19] LABS: ALBUMIN 2.7 g/dL (3.5-5.0); ALBUMIN/GLOBULIN RATIO 0.7 (0.8-2.0); ANION GAP 18.3 mmol/L (8-16); CREATININE, SERUM 2.78 mg/dL (0.57-1.11); POTASSIUM 4.3 mmol/L (3.5-5.1)
[2022-08-22] MEDS ORDERED: LORAZEPAM INJ 2 MG/ML VIAL ONE (07:56)
[2022-08-22] MEDS ORDERED: HEPARIN SOD (PORCINE) 1000 UNIT/ML SDV ONE (08:48)
[2022-08-22 09:04] LABS: ABG HCO3 24 mmol/L (22-26); ABG PCO2 36 mmHg (35-45); ABG PH 7.43 (7.35-7.45); ABG PO2 164 mmHg (80-105); ABG TCO2 25
[2022-08-22] MEDS: INSULIN LISPRO 100 UNIT/1 ML 3ML VIAL SQ SCH ×4 (09:19→22:00)
[2022-08-22] MEDS: BALSAM PERU/CASTOR OIL 60 GM OINT...G. TP SCH (09:22)
[2022-08-22] MEDS: METHYLPREDNISOLONE SOD SUCC 40 MG/ML VIAL 1ML IV SCH (09:22)
[2022-08-22] MEDS: NYSTATIN 15 GM POWDER UD BTL TOP SCH ×2 (09:23→18:43)
[2022-08-22] MEDS: IRON SUCROSE 100 MG in SODIUM CHLORIDE 0.9% 100 ML IV SCH (10:52)
[2022-08-22] MEDS: OCTREOTIDE ACETATE 500 MCG in SODIUM CHLORIDE 0.9% 250ML 249 ML IV SCH (10:54)
[2022-08-22] MEDS: NOREPINEPHRINE 8 MG/D5W 250 ML 250 ML IV SCH (15:00)
[2022-08-23] VITALS (97 sets, daily range): BP systolic 70–130; BP diastolic 54–105; PULSE 34–131; RESP 0–30; TEMP 97.3–98.6; O2SAT 93–100
[2022-08-23] MEDS: DEXMEDETOMIDINE 400MCG/NS100ML 100 ML IV PRN (00:10)
[2022-08-23] MEDS ORDERED: METOCLOPRAMIDE HCL 10 MG/2ML VIAL IV ONE (01:30)
[2022-08-23] MEDS: MIDODRINE HCL 5 MG TABLET PO SCH ×3 (05:09→21:50)
[2022-08-23] MEDS: SUCRALFATE 1 GM/10 ML SUSP NG SCH ×4 (05:09→23:22)
[2022-08-23] MEDS: METOCLOPRAMIDE HCL 10 MG/2ML VIAL IV SCH ×4 (05:09→23:22)
[2022-08-23 07:02] LABS: BASOPHILS % 0.1 % (0.0-1.0); HEMATOCRIT 35.5 % (34.2-44.1); HEMOGLOBIN 10.6 g/dL (12.0-16.0); LYMPHOCYTES # (AUTO) 1.4 (1.0-3.2); LYMPHOCYTES % 13.4 % (18.0-39.1); MEAN CORPUSCULAR HEMOGLOBIN 26.1 pg (28-32); MEAN CORPUSCULAR HGB CONC 29.9 g/dL (31-35); MEAN CORPUSCULAR VOLUME 87.4 fL (81-99); MONOCYTES # (AUTO) 0.9 (0.2-0.8); MONOCYTES % 8.1 % (4.4-11.3); NEUTROPHILS # (AUTO) 8.4 (2.1-6.9); NEUTROPHILS % 77.7 % (38.7-80.0); PLATELET COUNT 350 x10e3/uL (140-360); RED BLOOD COUNT 4.06 x10e6/uL (3.6-5.1); RED CELL DISTRIBUTION WIDTH 21.1 % (11.7-14.4)
[2022-08-23 07:16] LABS: ALBUMIN 2.6 g/dL (3.5-5.0); ALBUMIN/GLOBULIN RATIO 0.6 (0.8-2.0); ANION GAP 19.3 mmol/L (8-16); CALCIUM 8.3 mg/dL (8.4-10.2); CREATININE, SERUM 2.91 mg/dL (0.57-1.11); POTASSIUM 4.3 mmol/L (3.5-5.1)
[2022-08-23] MEDS: INSULIN LISPRO 100 UNIT/1 ML 3ML VIAL SQ SCH ×4 (08:03→21:53)
[2022-08-23] MEDS: METHYLPREDNISOLONE SOD SUCC 40 MG/ML VIAL 1ML IV SCH (08:05)
[2022-08-23] MEDS: IRON SUCROSE 100 MG in SODIUM CHLORIDE 0.9% 100 ML IV SCH (08:05)
[2022-08-23] MEDS: NYSTATIN 15 GM POWDER UD BTL TOP SCH ×2 (09:00→17:00)
[2022-08-23] MEDS: BALSAM PERU/CASTOR OIL 60 GM OINT...G. TP SCH (09:00)
[2022-08-23 09:59] LABS: ABG HCO3 25 mmol/L (22-26); ABG PCO2 44 mmHg (35-45); ABG PH 7.36 (7.35-7.45); ABG PO2 93 mmHg (80-105); ABG TCO2 26
[2022-08-23 12:37] LABS: PLATELET ESTIMATE ADEQUATE; PLATELET MORPHOLOGY COMMENT NORMAL; RBC MORPHOLOGY COMMENT NORMAL
[2022-08-23] MEDS: OCTREOTIDE ACETATE 500 MCG in SODIUM CHLORIDE 0.9% 250ML 249 ML IV SCH (13:34)
[2022-08-23] MEDS: NOREPINEPHRINE 8 MG/D5W 250 ML 250 ML IV SCH (15:11)
[2022-08-24] VITALS (31 sets, daily range): BP systolic 96–135; BP diastolic 61–99; PULSE 94–121; RESP 0–22; TEMP 98–98.7; O2SAT 97–100
[2022-08-24] MEDS ORDERED: HYDROCORTISONE ACETATE 25 MG/SUPP.RECT SUPP RC ONE (01:15)
[2022-08-24] MEDS: SUCRALFATE 1 GM/10 ML SUSP NG SCH ×3 (06:04→18:30)
[2022-08-24] MEDS: METOCLOPRAMIDE HCL 10 MG/2ML VIAL IV SCH ×3 (06:04→18:31)
[2022-08-24] MEDS: MIDODRINE HCL 5 MG TABLET PO SCH ×3 (06:20→22:11)
[2022-08-24 07:00] LABS: BASOPHILS % 0.1 % (0.0-1.0); HEMATOCRIT 34.4 % (34.2-44.1); HEMOGLOBIN 10.1 g/dL (12.0-16.0); LYMPHOCYTES # (AUTO) 1.2 (1.0-3.2); LYMPHOCYTES % 7.8 % (18.0-39.1); MEAN CORPUSCULAR HEMOGLOBIN 26.2 pg (28-32); MEAN CORPUSCULAR HGB CONC 29.4 g/dL (31-35); MEAN CORPUSCULAR VOLUME 89.1 fL (81-99); MONOCYTES # (AUTO) 1.2 (0.2-0.8); MONOCYTES % 7.4 % (4.4-11.3); NEUTROPHILS # (AUTO) 13.1 (2.1-6.9); NEUTROPHILS % 84.2 % (38.7-80.0); PLATELET COUNT 365 x10e3/uL (140-360); RED BLOOD COUNT 3.86 x10e6/uL (3.6-5.1); RED CELL DISTRIBUTION WIDTH 21.3 % (11.7-14.4)
[2022-08-24 07:19] LABS: ALBUMIN/GLOBULIN RATIO 0.8 (0.8-2.0); ANION GAP 19.6 mmol/L (8-16); CALCIUM 8.6 mg/dL (8.4-10.2); CREATININE, SERUM 2.46 mg/dL (0.57-1.11); POTASSIUM 3.6 mmol/L (3.5-5.1)
[2022-08-24] MEDS: OCTREOTIDE ACETATE 500 MCG in SODIUM CHLORIDE 0.9% 250ML 249 ML IV SCH (07:32)
[2022-08-24] MEDS: INSULIN LISPRO 100 UNIT/1 ML 3ML VIAL SQ SCH ×4 (08:56→22:12)
[2022-08-24] MEDS: NYSTATIN 15 GM POWDER UD BTL TOP SCH ×2 (10:11→18:34)
[2022-08-24] MEDS: BALSAM PERU/CASTOR OIL 60 GM OINT...G. TP SCH (10:11)
[2022-08-24] MEDS: METHYLPREDNISOLONE SOD SUCC 40 MG/ML VIAL 1ML IV SCH (10:11)
[2022-08-24] MEDS: HYDROCORTISONE ACETATE 25 MG/SUPP.RECT SUPP RC SCH ×2 (11:48→18:33)
[2022-08-24] MEDS ORDERED: AMIODARONE HCL 200 MG TAB PO ONE (12:00)
[2022-08-24] MEDS: IPRATROPIUM BROMIDE 0.02% 2.5 ML NEB INH PRN (13:10)
[2022-08-24] MEDS: NOREPINEPHRINE 8 MG/D5W 250 ML 250 ML IV SCH (15:00)
[2022-08-24] MEDS: AMIODARONE HCL 200 MG TAB PO SCH (18:33)
[2022-08-25] VITALS (59 sets, daily range): BP systolic 97–122; BP diastolic 75–94; PULSE 77–122; RESP 0–25; TEMP 97–98.3; O2SAT 97–100
[2022-08-25] MEDS: SUCRALFATE 1 GM/10 ML SUSP NG SCH ×5 (00:05→23:15)
[2022-08-25] MEDS: METOCLOPRAMIDE HCL 10 MG/2ML VIAL IV SCH ×5 (00:05→23:15)
[2022-08-25] MEDS: OCTREOTIDE ACETATE 500 MCG in SODIUM CHLORIDE 0.9% 250ML 249 ML IV SCH ×2 (02:02→20:35)
[2022-08-25] MEDS: MIDODRINE HCL 5 MG TABLET PO SCH ×3 (05:07→21:10)
[2022-08-25 07:04] LABS: BASOPHILS % 0.1 % (0.0-1.0); HEMATOCRIT 35.3 % (34.2-44.1); LYMPHOCYTES # (AUTO) 1.3 (1.0-3.2); LYMPHOCYTES % 8.4 % (18.0-39.1); MEAN CORPUSCULAR HEMOGLOBIN 26.3 pg (28-32); MEAN CORPUSCULAR HGB CONC 28.3 g/dL (31-35); MEAN CORPUSCULAR VOLUME 92.9 fL (81-99); MONOCYTES # (AUTO) 0.9 (0.2-0.8); MONOCYTES % 5.9 % (4.4-11.3); NEUTROPHILS # (AUTO) 12.9 (2.1-6.9); PLATELET COUNT 346 x10e3/uL (140-360); RED CELL DISTRIBUTION WIDTH 21.3 % (11.7-14.4)
[2022-08-25 07:31] LABS: ALBUMIN/GLOBULIN RATIO 0.8 (0.8-2.0); ANION GAP 17.3 mmol/L (8-16); CALCIUM 8.8 mg/dL (8.4-10.2); CREATININE, SERUM 2.87 mg/dL (0.57-1.11); POTASSIUM 3.3 mmol/L (3.5-5.1)
[2022-08-25] MEDS: HYDROCORTISONE ACETATE 25 MG/SUPP.RECT SUPP RC SCH ×2 (08:07→16:35)
[2022-08-25] MEDS: AMIODARONE HCL 200 MG TAB PO SCH ×2 (08:08→16:36)
[2022-08-25] MEDS: METHYLPREDNISOLONE SOD SUCC 40 MG/ML VIAL 1ML IV SCH (08:09)
[2022-08-25] MEDS: BALSAM PERU/CASTOR OIL 60 GM OINT...G. TP SCH (08:22)
[2022-08-25] MEDS: NYSTATIN 15 GM POWDER UD BTL TOP SCH ×2 (08:22→16:50)
[2022-08-25] MEDS: INSULIN LISPRO 100 UNIT/1 ML 3ML VIAL SQ SCH ×4 (08:31→20:37)
[2022-08-25] MEDS: NOREPINEPHRINE 8 MG/D5W 250 ML 250 ML IV SCH (15:00)
[2022-08-25] MEDS ORDERED: SODIUM CHLORIDE 0.9% 250ML 0 ML ONE (20:26)
[2022-08-26] VITALS (63 sets, daily range): BP systolic 93–121; BP diastolic 69–91; PULSE 51–124; RESP 0–23; TEMP 96.4–98; O2SAT 73–100
[2022-08-26] MEDS ORDERED: OCTREOTIDE ACETATE 500 MCG in SODIUM CHLORIDE 0.9% 250ML 249 ML IV SCH (00:30)
[2022-08-26] MEDS: SUCRALFATE 1 GM/10 ML SUSP NG SCH ×4 (05:01→23:12)
[2022-08-26] MEDS: METOCLOPRAMIDE HCL 10 MG/2ML VIAL IV SCH ×4 (05:01→23:12)
[2022-08-26] MEDS: MIDODRINE HCL 5 MG TABLET PO SCH ×3 (05:01→21:35)
[2022-08-26 06:55] LABS: BASOPHILS % 0.1 % (0.0-1.0); EOSINOPHILS % 0.2 % (0.0-6.0); HEMATOCRIT 35.1 % (34.2-44.1); HEMOGLOBIN 10.2 g/dL (12.0-16.0); LYMPHOCYTES # (AUTO) 1.4 (1.0-3.2); LYMPHOCYTES % 8.5 % (18.0-39.1); MEAN CORPUSCULAR HEMOGLOBIN 26.8 pg (28-32); MEAN CORPUSCULAR HGB CONC 29.1 g/dL (31-35); MEAN CORPUSCULAR VOLUME 92.1 fL (81-99); MONOCYTES # (AUTO) 0.9 (0.2-0.8); MONOCYTES % 5.5 % (4.4-11.3); NEUTROPHILS # (AUTO) 13.6 (2.1-6.9); NEUTROPHILS % 85.1 % (38.7-80.0); PLATELET COUNT 326 x10e3/uL (140-360); RED BLOOD COUNT 3.81 x10e6/uL (3.6-5.1); RED CELL DISTRIBUTION WIDTH 21.7 % (11.7-14.4)
[2022-08-26 07:19] LABS: ALBUMIN 3.1 g/dL (3.5-5.0); ALBUMIN/GLOBULIN RATIO 0.8 (0.8-2.0); ANION GAP 15.2 mmol/L (8-16); CALCIUM 9.6 mg/dL (8.4-10.2); CREATININE, SERUM 3.15 mg/dL (0.57-1.11); POTASSIUM 3.2 mmol/L (3.5-5.1)
[2022-08-26] MEDS: AMIODARONE HCL 200 MG TAB PO SCH ×2 (08:40→16:40)
[2022-08-26] MEDS: HYDROCORTISONE ACETATE 25 MG/SUPP.RECT SUPP RC SCH ×2 (08:40→16:40)
[2022-08-26] MEDS: METHYLPREDNISOLONE SOD SUCC 40 MG/ML VIAL 1ML IV SCH (08:40)
[2022-08-26] MEDS: INSULIN LISPRO 100 UNIT/1 ML 3ML VIAL SQ SCH ×4 (09:01→20:22)
[2022-08-26] MEDS: BALSAM PERU/CASTOR OIL 60 GM OINT...G. TP SCH (09:07)
[2022-08-26] MEDS: NYSTATIN 15 GM POWDER UD BTL TOP SCH (09:07)
[2022-08-26 09:50] LABS: ANISOCYTOSIS MODERATE; HYPOCHROMASIA MODERATE; PLATELET ESTIMATE ADEQUATE; PLATELET MORPHOLOGY COMMENT NORMAL; POLYCHROMASIA FEW; RBC MORPHOLOGY COMMENT ABNORMAL
[2022-08-26] MEDS: NOREPINEPHRINE 8 MG/D5W 250 ML 250 ML IV SCH (15:00)
[2022-08-26] MEDS: METOPROLOL TARTRATE 25 MG TAB PO SCH (16:41)
[2022-08-26] MEDS: IPRATROPIUM BROMIDE 0.02% 2.5 ML NEB INH PRN (19:20)
[2022-08-27] VITALS (55 sets, daily range): BP systolic 67–132; BP diastolic 47–103; PULSE 43–122; RESP 12–23; TEMP 96.8–97.8; O2SAT 94–100
[2022-08-27] MEDS: SUCRALFATE 1 GM/10 ML SUSP NG SCH ×4 (05:11→23:00)
[2022-08-27] MEDS: MIDODRINE HCL 5 MG TABLET PO SCH ×3 (05:11→21:02)
[2022-08-27] MEDS: METOCLOPRAMIDE HCL 10 MG/2ML VIAL IV SCH ×4 (05:11→23:01)
[2022-08-27 06:29] LABS: BASOPHILS % 0.1 % (0.0-1.0); EOSINOPHILS % 0.2 % (0.0-6.0); HEMATOCRIT 35.9 % (34.2-44.1); HEMOGLOBIN 10.4 g/dL (12.0-16.0); LYMPHOCYTES # (AUTO) 1.3 (1.0-3.2); LYMPHOCYTES % 8.9 % (18.0-39.1); MEAN CORPUSCULAR HEMOGLOBIN 27.2 pg (28-32); MEAN CORPUSCULAR VOLUME 93.7 fL (81-99); MONOCYTES # (AUTO) 0.8 (0.2-0.8); MONOCYTES % 5.6 % (4.4-11.3); NEUTROPHILS # (AUTO) 12.2 (2.1-6.9); NEUTROPHILS % 84.6 % (38.7-80.0); PLATELET COUNT 308 x10e3/uL (140-360); RED BLOOD COUNT 3.83 x10e6/uL (3.6-5.1); RED CELL DISTRIBUTION WIDTH 21.7 % (11.7-14.4)
[2022-08-27 06:57] LABS: ALBUMIN 3.1 g/dL (3.5-5.0); ALBUMIN/GLOBULIN RATIO 0.8 (0.8-2.0); ANION GAP 17.2 mmol/L (8-16); CALCIUM 8.9 mg/dL (8.4-10.2); CREATININE, SERUM 3.49 mg/dL (0.57-1.11); POTASSIUM 3.2 mmol/L (3.5-5.1)
[2022-08-27] MEDS: AMIODARONE HCL 200 MG TAB PO SCH (08:28)
[2022-08-27] MEDS: HYDROCORTISONE ACETATE 25 MG/SUPP.RECT SUPP RC SCH ×2 (08:28→18:24)
[2022-08-27] MEDS: METHYLPREDNISOLONE SOD SUCC 40 MG/ML VIAL 1ML IV SCH (08:28)
[2022-08-27] MEDS: BALSAM PERU/CASTOR OIL 60 GM OINT...G. TP SCH (08:28)
[2022-08-27] MEDS: INSULIN LISPRO 100 UNIT/1 ML 3ML VIAL SQ SCH ×4 (08:31→21:02)
[2022-08-27] MEDS ORDERED: HEPARIN SOD (PORCINE) 1000 UNIT/ML SDV ONE (08:51)
[2022-08-27] MEDS ORDERED: SODIUM CHLORIDE 0.9% 1000ML 2,000 ML ONE (08:52)
[2022-08-27] MEDS ORDERED: ALBUMIN 25% 12.5GM 50ML 50 ML IV ONE (08:52)
[2022-08-27] MEDS: METOPROLOL TARTRATE 25 MG TAB PO SCH ×2 (09:00→14:25)
[2022-08-27] MEDS ORDERED: HEPARIN SOD (PORCINE) 1000 UNIT/ML SDV IV PRN (09:45)
[2022-08-27] MEDS ORDERED: ALPRAZOLAM 0.25 MG TAB PO ONE (13:30)
[2022-08-27] MEDS ORDERED: AMIODARONE HCL 200 MG TAB PO SCH (17:00)
[2022-08-27 19:43] LABS: ALBUMIN 3.2 g/dL (3.5-5.0); ALBUMIN/GLOBULIN RATIO 0.8 (0.8-2.0); ANION GAP 15.4 mmol/L (8-16); CALCIUM 8.4 mg/dL (8.4-10.2); CREATININE, SERUM 2.84 mg/dL (0.57-1.11); POTASSIUM 3.4 mmol/L (3.5-5.1)
[2022-08-27] MEDS ORDERED: METOPROLOL TARTRATE 25 MG TAB PO SCH (21:00)
[2022-08-27] MEDS ORDERED: POTASSIUM CHLORIDE 20MEQ/100ML 200 ML IV ONE (21:30)
[2022-08-27] MEDS ORDERED: POTASSIUM CHLORIDE 10MEQ/100ML 100 ML IV SCH (22:00)
[2022-08-28] VITALS (101 sets, daily range): BP systolic 55–141; BP diastolic 39–108; PULSE 29–116; RESP 0–32; TEMP 97–97.8; O2SAT 45–100
[2022-08-28] MEDS ORDERED: SODIUM CHLORIDE 0.9% 1000ML 2,000 ML ONE (01:25)
[2022-08-28] MEDS ORDERED: CALCIUM CHLORIDE 10% SYRINGE 10 ML IV ONE (01:25)
[2022-08-28 01:36] LABS: BASOPHILS % 0.2 % (0.0-1.0); EOSINOPHILS % 0.1 % (0.0-6.0); HEMATOCRIT 37.7 % (34.2-44.1); HEMOGLOBIN 10.6 g/dL (12.0-16.0); LYMPHOCYTES % 21.9 % (18.0-39.1); MEAN CORPUSCULAR HEMOGLOBIN 26.8 pg (28-32); MEAN CORPUSCULAR HGB CONC 28.1 g/dL (31-35); MEAN CORPUSCULAR VOLUME 95.2 fL (81-99); MONOCYTES # (AUTO) 1.3 (0.2-0.8); MONOCYTES % 7.1 % (4.4-11.3); NEUTROPHILS # (AUTO) 12.9 (2.1-6.9); PLATELET COUNT 349 x10e3/uL (140-360); RED BLOOD COUNT 3.96 x10e6/uL (3.6-5.1); RED CELL DISTRIBUTION WIDTH 22.5 % (11.7-14.4)
[2022-08-28 01:56] LABS: ALBUMIN 3.2 g/dL (3.5-5.0); ALBUMIN/GLOBULIN RATIO 0.8 (0.8-2.0); ANION GAP 19.3 mmol/L (8-16); CALCIUM 12.1 mg/dL (8.4-10.2); CREATININE, SERUM 3.09 mg/dL (0.57-1.11)
[2022-08-28 01:57] LABS: POTASSIUM 5.3 mmol/L (3.5-5.1)
[2022-08-28 02:00] LABS: CREATINE KINASE MB 2.3 ng/mL (0-5.0)
[2022-08-28] MEDS ORDERED: LORAZEPAM INJ 2 MG/ML VIAL ONE (02:09)
[2022-08-28] MEDS ORDERED: DEXMEDETOMIDINE 400MCG/NS100ML 100 ML IV ONE (02:09)
[2022-08-28] MEDS ORDERED: LORAZEPAM INJ 2 MG/ML VIAL IV ONE ×2 (02:15→02:45)
[2022-08-28] MEDS: DEXMEDETOMIDINE 400MCG/NS100ML 100 ML IV PRN (02:28)
[2022-08-28 02:53] LABS: ABG PCO2 49 mmHg (35-45); ABG PH 7.28 (7.35-7.45)
[2022-08-28 02:55] LABS: ABG HCO3 23 mmol/L (22-26); ABG PO2 32 mmHg (80-105); ABG TCO2 25
[2022-08-28] MEDS: METOCLOPRAMIDE HCL 10 MG/2ML VIAL IV SCH ×4 (05:39→23:37)
[2022-08-28] MEDS: SUCRALFATE 1 GM/10 ML SUSP NG SCH ×4 (05:39→23:37)
[2022-08-28] MEDS: MIDODRINE HCL 5 MG TABLET PO SCH ×3 (05:39→21:15)
[2022-08-28 06:54] LABS: BASOPHILS % 0.2 % (0.0-1.0); EOSINOPHILS % 0.2 % (0.0-6.0); HEMOGLOBIN 9.6 g/dL (12.0-16.0); LYMPHOCYTES # (AUTO) 1.2 (1.0-3.2); LYMPHOCYTES % 9.7 % (18.0-39.1); MEAN CORPUSCULAR HEMOGLOBIN 26.8 pg (28-32); MEAN CORPUSCULAR HGB CONC 29.1 g/dL (31-35); MEAN CORPUSCULAR VOLUME 92.2 fL (81-99); MONOCYTES # (AUTO) 0.7 (0.2-0.8); MONOCYTES % 5.2 % (4.4-11.3); NEUTROPHILS # (AUTO) 10.7 (2.1-6.9); PLATELET COUNT 249 x10e3/uL (140-360); RED BLOOD COUNT 3.58 x10e6/uL (3.6-5.1); RED CELL DISTRIBUTION WIDTH 21.5 % (11.7-14.4)
[2022-08-28 07:13] LABS: ALBUMIN 2.9 g/dL (3.5-5.0); ALBUMIN/GLOBULIN RATIO 0.9 (0.8-2.0); ANION GAP 16.5 mmol/L (8-16); CALCIUM 8.6 mg/dL (8.4-10.2); CREATININE, SERUM 2.92 mg/dL (0.57-1.11); POTASSIUM 3.5 mmol/L (3.5-5.1)
[2022-08-28] MEDS: INSULIN LISPRO 100 UNIT/1 ML 3ML VIAL SQ SCH ×4 (07:30→21:00)
[2022-08-28 08:14] LABS: ANISOCYTOSIS MODERATE; HYPOCHROMASIA MODERATE; PLATELET ESTIMATE ADEQUATE; PLATELET MORPHOLOGY COMMENT FEW LARGE; POLYCHROMASIA FEW; RBC MORPHOLOGY COMMENT ABNORMAL
[2022-08-28] MEDS: BALSAM PERU/CASTOR OIL 60 GM OINT...G. TP SCH (10:17)
[2022-08-28 11:16] LABS: ABG HCO3 24 mmol/L (22-26); ABG PCO2 37 mmHg (35-45); ABG PH 7.42 (7.35-7.45); ABG PO2 74 mmHg (80-105)
[2022-08-28 11:17] LABS: ABG TCO2 25
[2022-08-28] MEDS ORDERED: ETOMIDATE 2 MG/ML 10 ML INJ IV ONE (12:24)
[2022-08-28] MEDS ORDERED: SUCCINYLCHOLINE CHLORIDE 20 MG/ML 10ML VIAL ONE (12:24)
[2022-08-28] MEDS ORDERED: Vancomycin IV 1 GM in SODIUM CHLORIDE 0.9% 250ML 250 ML IV ONE (17:00)
[2022-08-29] VITALS (71 sets, daily range): BP systolic 89–132; BP diastolic 52–89; PULSE 25–149; RESP 0–24; TEMP 97.1–97.9; O2SAT 75–100
[2022-08-29] MEDS: MIDODRINE HCL 5 MG TABLET PO SCH ×3 (06:33→21:03)
[2022-08-29] MEDS: SUCRALFATE 1 GM/10 ML SUSP NG SCH ×4 (06:33→23:57)
[2022-08-29] MEDS: METOCLOPRAMIDE HCL 10 MG/2ML VIAL IV SCH ×4 (06:33→23:57)
[2022-08-29 06:41] LABS: BASOPHILS % 0.1 % (0.0-1.0); EOSINOPHILS # (AUTO) 0.1 (0.0-0.4); EOSINOPHILS % 0.6 % (0.0-6.0); HEMATOCRIT 31.7 % (34.2-44.1); HEMOGLOBIN 9.4 g/dL (12.0-16.0); LYMPHOCYTES # (AUTO) 1.1 (1.0-3.2); LYMPHOCYTES % 6.6 % (18.0-39.1); MEAN CORPUSCULAR HEMOGLOBIN 26.9 pg (28-32); MEAN CORPUSCULAR HGB CONC 29.7 g/dL (31-35); MEAN CORPUSCULAR VOLUME 90.6 fL (81-99); MONOCYTES # (AUTO) 0.7 (0.2-0.8); MONOCYTES % 4.5 % (4.4-11.3); NEUTROPHILS # (AUTO) 13.8 (2.1-6.9); NEUTROPHILS % 87.6 % (38.7-80.0); PLATELET COUNT 215 x10e3/uL (140-360); RED CELL DISTRIBUTION WIDTH 22.4 % (11.7-14.4)
[2022-08-29 07:09] LABS: ALBUMIN 2.6 g/dL (3.5-5.0); ALBUMIN/GLOBULIN RATIO 0.8 (0.8-2.0); ANION GAP 16.3 mmol/L (8-16); CREATININE, SERUM 3.06 mg/dL (0.57-1.11); POTASSIUM 3.3 mmol/L (3.5-5.1)
[2022-08-29] MEDS: INSULIN LISPRO 100 UNIT/1 ML 3ML VIAL SQ SCH ×4 (07:30→20:54)
[2022-08-29] MEDS: BALSAM PERU/CASTOR OIL 60 GM OINT...G. TP SCH (08:51)
[2022-08-29 10:11] LABS: ABG HCO3 22 mmol/L (22-26); ABG PCO2 35 mmHg (35-45); ABG PO2 73 mmHg (80-105); ABG TCO2 23
[2022-08-29] MEDS: DEXMEDETOMIDINE 400MCG/NS100ML 100 ML IV PRN ×2 (10:36→17:32)
[2022-08-29] MEDS ORDERED: POTASSIUM CHLORIDE 20MEQ/100ML 100 ML IV ONE (11:30)
[2022-08-29] MEDS ORDERED: Vancomycin IV 500 MG in SODIUM CHLORIDE 0.9% 100 ML IV SCH (20:00)
[2022-08-30] VITALS (66 sets, daily range): BP systolic 100–141; BP diastolic 62–111; PULSE 29–91; RESP 0–18; TEMP 96.7–99.2; O2SAT 93–100
[2022-08-30] MEDS: DEXMEDETOMIDINE 400MCG/NS100ML 100 ML IV PRN ×5 (01:14→23:06)
[2022-08-30] MEDS: SUCRALFATE 1 GM/10 ML SUSP NG SCH ×4 (05:52→23:04)
[2022-08-30] MEDS: METOCLOPRAMIDE HCL 10 MG/2ML VIAL IV SCH ×4 (05:52→23:04)
[2022-08-30] MEDS: MIDODRINE HCL 5 MG TABLET PO SCH ×3 (05:52→21:01)
[2022-08-30 06:52] LABS: BASOPHILS % 0.2 % (0.0-1.0); EOSINOPHILS # (AUTO) 0.2 (0.0-0.4); EOSINOPHILS % 1.4 % (0.0-6.0); HEMATOCRIT 34.7 % (34.2-44.1); HEMOGLOBIN 10.3 g/dL (12.0-16.0); LYMPHOCYTES # (AUTO) 0.9 (1.0-3.2); LYMPHOCYTES % 6.6 % (18.0-39.1); MEAN CORPUSCULAR HEMOGLOBIN 26.8 pg (28-32); MEAN CORPUSCULAR HGB CONC 29.7 g/dL (31-35); MEAN CORPUSCULAR VOLUME 90.4 fL (81-99); MONOCYTES # (AUTO) 0.5 (0.2-0.8); MONOCYTES % 3.7 % (4.4-11.3); NEUTROPHILS # (AUTO) 11.6 (2.1-6.9); NEUTROPHILS % 87.4 % (38.7-80.0); PLATELET COUNT 214 x10e3/uL (140-360); RED BLOOD COUNT 3.84 x10e6/uL (3.6-5.1); RED CELL DISTRIBUTION WIDTH 22.5 % (11.7-14.4)
[2022-08-30 07:11] LABS: ALBUMIN 2.6 g/dL (3.5-5.0); ALBUMIN/GLOBULIN RATIO 0.7 (0.8-2.0); ANION GAP 14.5 mmol/L (8-16); CALCIUM 8.5 mg/dL (8.4-10.2); CREATININE, SERUM 2.57 mg/dL (0.57-1.11); POTASSIUM 3.5 mmol/L (3.5-5.1)
[2022-08-30] MEDS: INSULIN LISPRO 100 UNIT/1 ML 3ML VIAL SQ SCH ×4 (08:21→20:28)
[2022-08-30] MEDS: BALSAM PERU/CASTOR OIL 60 GM OINT...G. TP SCH (08:21)
[2022-08-31] VITALS (76 sets, daily range): BP systolic 92–145; BP diastolic 69–93; PULSE 36–85; RESP 0–26; TEMP 97.4–97.9; O2SAT 97–100
[2022-08-31] MEDS: DEXMEDETOMIDINE 400MCG/NS100ML 100 ML IV PRN ×6 (03:08→22:38)
[2022-08-31] MEDS: METOCLOPRAMIDE HCL 10 MG/2ML VIAL IV SCH ×3 (05:06→17:24)
[2022-08-31] MEDS: SUCRALFATE 1 GM/10 ML SUSP NG SCH ×3 (05:06→17:23)
[2022-08-31] MEDS: MIDODRINE HCL 5 MG TABLET PO SCH ×3 (05:06→22:31)
[2022-08-31 07:03] LABS: BASOPHILS % 0.1 % (0.0-1.0); EOSINOPHILS # (AUTO) 0.2 (0.0-0.4); EOSINOPHILS % 1.2 % (0.0-6.0); HEMATOCRIT 34.8 % (34.2-44.1); HEMOGLOBIN 10.3 g/dL (12.0-16.0); LYMPHOCYTES % 7.4 % (18.0-39.1); MEAN CORPUSCULAR HEMOGLOBIN 26.8 pg (28-32); MEAN CORPUSCULAR HGB CONC 29.6 g/dL (31-35); MEAN CORPUSCULAR VOLUME 90.4 fL (81-99); MONOCYTES # (AUTO) 0.7 (0.2-0.8); MONOCYTES % 4.8 % (4.4-11.3); NEUTROPHILS # (AUTO) 12.1 (2.1-6.9); PLATELET COUNT 248 x10e3/uL (140-360); RED BLOOD COUNT 3.85 x10e6/uL (3.6-5.1)
[2022-08-31 07:20] LABS: ALBUMIN 2.4 g/dL (3.5-5.0); ALBUMIN/GLOBULIN RATIO 0.6 (0.8-2.0); ANION GAP 12.6 mmol/L (8-16); CALCIUM 8.4 mg/dL (8.4-10.2); CREATININE, SERUM 2.85 mg/dL (0.57-1.11); POTASSIUM 3.6 mmol/L (3.5-5.1)
[2022-08-31] MEDS: INSULIN LISPRO 100 UNIT/1 ML 3ML VIAL SQ SCH ×5 (07:45→21:28)
[2022-08-31] MEDS: BALSAM PERU/CASTOR OIL 60 GM OINT...G. TP SCH (08:20)
[2022-09-01] VITALS (100 sets, daily range): BP systolic 78–151; BP diastolic 54–96; PULSE 29–112; RESP 0–19; TEMP 97.2–98.3; O2SAT 98–100
[2022-09-01] MEDS: DEXMEDETOMIDINE 400MCG/NS100ML 100 ML IV PRN ×7 (00:36→22:39)
[2022-09-01] MEDS: SUCRALFATE 1 GM/10 ML SUSP NG SCH ×5 (00:36→17:52)
[2022-09-01] MEDS: METOCLOPRAMIDE HCL 10 MG/2ML VIAL IV SCH ×4 (00:36→19:10)
[2022-09-01] MEDS: MIDODRINE HCL 5 MG TABLET PO SCH ×3 (05:57→21:19)
[2022-09-01 06:43] LABS: BASOPHILS % 0.2 % (0.0-1.0); EOSINOPHILS # (AUTO) 0.2 (0.0-0.4); EOSINOPHILS % 1.6 % (0.0-6.0); HEMATOCRIT 36.2 % (34.2-44.1); HEMOGLOBIN 10.7 g/dL (12.0-16.0); LYMPHOCYTES # (AUTO) 1.4 (1.0-3.2); LYMPHOCYTES % 11.3 % (18.0-39.1); MEAN CORPUSCULAR HEMOGLOBIN 26.6 pg (28-32); MEAN CORPUSCULAR HGB CONC 29.6 g/dL (31-35); MEAN CORPUSCULAR VOLUME 89.8 fL (81-99); MONOCYTES # (AUTO) 0.7 (0.2-0.8); MONOCYTES % 5.8 % (4.4-11.3); NEUTROPHILS % 80.6 % (38.7-80.0); PLATELET COUNT 266 x10e3/uL (140-360); RED BLOOD COUNT 4.03 x10e6/uL (3.6-5.1); RED CELL DISTRIBUTION WIDTH 22.1 % (11.7-14.4)
[2022-09-01 07:05] LABS: ALBUMIN 2.4 g/dL (3.5-5.0); ALBUMIN/GLOBULIN RATIO 0.6 (0.8-2.0); ANION GAP 14.8 mmol/L (8-16); CALCIUM 8.4 mg/dL (8.4-10.2); CREATININE, SERUM 3.11 mg/dL (0.57-1.11); POTASSIUM 3.8 mmol/L (3.5-5.1)
[2022-09-01 07:27] LABS: ANISOCYTOSIS MARKED; HYPOCHROMASIA SLIGHT; PLATELET ESTIMATE ADEQUATE; PLATELET MORPHOLOGY COMMENT NORMAL; RBC MORPHOLOGY COMMENT ABNORMAL
[2022-09-01 07:28] LABS: POLYCHROMASIA FEW
[2022-09-01] MEDS: INSULIN LISPRO 100 UNIT/1 ML 3ML VIAL SQ SCH ×3 (07:30→19:12)
[2022-09-01] MEDS: AMIODARONE HCL 200 MG TAB PO SCH ×2 (09:31→19:10)
[2022-09-01] MEDS: BALSAM PERU/CASTOR OIL 60 GM OINT...G. TP SCH (09:31)
[2022-09-01] MEDS ORDERED: SODIUM CHLORIDE 0.9% 1000ML 1,000 ML ONE (12:00)
[2022-09-01] MEDS ORDERED: HEPARIN SOD (PORCINE) 1000 UNIT/ML 30ML ONE (12:00)
[2022-09-01] MEDS ORDERED: IOPAMIDOL 370 MG/ML 100 ML INFUS..BTL INJ ONE ×2 (12:00→13:06)
[2022-09-01] MEDS ORDERED: HEPARIN SOD/SOD CHLORIDE 2,000 ML ONE (12:00)
[2022-09-01] MEDS ORDERED: LIDOCAINE HCL 2% LOCAL 20 ML VIAL ONE (12:00)
[2022-09-01] MEDS ORDERED: VERAPAMIL HCL 2.5 MG/ML 2 ML VIAL ONE (12:05)
[2022-09-01] MEDS ORDERED: HYDROMORPHONE 1MG/1ML INJ IV PRN ×2 (14:15→14:30)
[2022-09-01] MEDS: NOREPINEPHRINE 8 MG/D5W 250 ML 250 ML IV SCH (15:00)
[2022-09-01] MEDS ORDERED: FUROSEMIDE INJ 10 MG/ML 4 ML VIAL IV ONE (17:15)
[2022-09-02] VITALS (64 sets, daily range): BP systolic 64–143; BP diastolic 29–104; PULSE 36–113; RESP 12–26; TEMP 97.3–97.8; O2SAT 90–100
[2022-09-02] MEDS: METOCLOPRAMIDE HCL 10 MG/2ML VIAL IV SCH ×4 (00:08→18:40)
[2022-09-02] MEDS: SUCRALFATE 1 GM/10 ML SUSP NG SCH ×4 (00:08→18:40)
[2022-09-02] MEDS: INSULIN LISPRO 100 UNIT/1 ML 3ML VIAL SQ SCH ×4 (00:41→18:46)
[2022-09-02] MEDS: DEXMEDETOMIDINE 400MCG/NS100ML 100 ML IV PRN ×3 (01:24→07:08)
[2022-09-02] MEDS: MIDODRINE HCL 5 MG TABLET PO SCH ×3 (05:02→21:23)
[2022-09-02 06:53] LABS: BASOPHILS % 0.4 % (0.0-1.0); EOSINOPHILS # (AUTO) 0.2 (0.0-0.4); EOSINOPHILS % 2.2 % (0.0-6.0); HEMATOCRIT 35.5 % (34.2-44.1); HEMOGLOBIN 10.5 g/dL (12.0-16.0); LYMPHOCYTES # (AUTO) 1.3 (1.0-3.2); LYMPHOCYTES % 12.9 % (18.0-39.1); MEAN CORPUSCULAR HEMOGLOBIN 26.7 pg (28-32); MEAN CORPUSCULAR HGB CONC 29.6 g/dL (31-35); MEAN CORPUSCULAR VOLUME 90.3 fL (81-99); MONOCYTES # (AUTO) 0.7 (0.2-0.8); MONOCYTES % 7.1 % (4.4-11.3); NEUTROPHILS # (AUTO) 7.5 (2.1-6.9); NEUTROPHILS % 77.1 % (38.7-80.0); PLATELET COUNT 286 x10e3/uL (140-360); RED BLOOD COUNT 3.93 x10e6/uL (3.6-5.1); RED CELL DISTRIBUTION WIDTH 21.6 % (11.7-14.4)
[2022-09-02 07:12] LABS: ALBUMIN 2.3 g/dL (3.5-5.0); ALBUMIN/GLOBULIN RATIO 0.6 (0.8-2.0); CALCIUM 8.3 mg/dL (8.4-10.2); CREATININE, SERUM 3.32 mg/dL (0.57-1.11)
[2022-09-02] MEDS ORDERED: DEXMEDETOMIDINE 400MCG/NS100ML 100 ML IV PRN (07:30)
[2022-09-02] MEDS: AMIODARONE HCL 200 MG TAB PO SCH ×2 (09:55→18:37)
[2022-09-02] MEDS: BALSAM PERU/CASTOR OIL 60 GM OINT...G. TP SCH (09:56)
[2022-09-02] MEDS: ACETAMINOPHEN 325 MG/10 ML UDC NG PRN (09:56)
[2022-09-02 11:24] LABS: ABG HCO3 25 mmol/L (22-26); ABG PCO2 37 mmHg (35-45); ABG PH 7.43 (7.35-7.45); ABG PO2 161 mmHg (80-105); ABG TCO2 26
[2022-09-02] MEDS: ASPIRIN 81 MG CHEW TAB NG SCH (12:30)
[2022-09-02] MEDS: ATORVASTATIN 40 MG TAB PO SCH (21:14)
[2022-09-03] VITALS (49 sets, daily range): BP systolic 86–161; BP diastolic 21–100; PULSE 43–124; RESP 0–34; TEMP 97.3–98.4; O2SAT 91–100
[2022-09-03] MEDS: SUCRALFATE 1 GM/10 ML SUSP NG SCH ×5 (00:04→23:47)
[2022-09-03] MEDS: METOCLOPRAMIDE HCL 10 MG/2ML VIAL IV SCH ×5 (00:05→23:45)
[2022-09-03] MEDS: INSULIN LISPRO 100 UNIT/1 ML 3ML VIAL SQ SCH ×5 (00:26→23:44)
[2022-09-03] MEDS: ACETAMINOPHEN 325 MG/10 ML UDC NG PRN (02:06)
[2022-09-03] MEDS: IPRATROPIUM BROMIDE 0.02% 2.5 ML NEB INH PRN ×2 (03:07→11:10)
[2022-09-03] MEDS: MIDODRINE HCL 5 MG TABLET PO SCH ×3 (05:45→21:04)
[2022-09-03 06:48] LABS: BASOPHILS % 0.3 % (0.0-1.0); EOSINOPHILS % 0.1 % (0.0-6.0); HEMATOCRIT 33.4 % (34.2-44.1); HEMOGLOBIN 9.7 g/dL (12.0-16.0); LYMPHOCYTES # (AUTO) 0.7 (1.0-3.2); LYMPHOCYTES % 5.4 % (18.0-39.1); MEAN CORPUSCULAR HEMOGLOBIN 26.9 pg (28-32); MEAN CORPUSCULAR VOLUME 92.5 fL (81-99); MONOCYTES # (AUTO) 0.9 (0.2-0.8); MONOCYTES % 7.1 % (4.4-11.3); NEUTROPHILS % 86.5 % (38.7-80.0); PLATELET COUNT 339 x10e3/uL (140-360); RED BLOOD COUNT 3.61 x10e6/uL (3.6-5.1); RED CELL DISTRIBUTION WIDTH 21.4 % (11.7-14.4)
[2022-09-03 07:08] LABS: ALBUMIN 2.8 g/dL (3.5-5.0); ALBUMIN/GLOBULIN RATIO 0.7 (0.8-2.0); ANION GAP 18.6 mmol/L (8-16); CALCIUM 8.7 mg/dL (8.4-10.2); POTASSIUM 3.6 mmol/L (3.5-5.1)
[2022-09-03 07:26] LABS: CREATININE, SERUM 3.69 mg/dL (0.57-1.11)
[2022-09-03] MEDS: AMIODARONE HCL 200 MG TAB PO SCH ×2 (08:10→17:03)
[2022-09-03] MEDS: ASPIRIN 81 MG CHEW TAB NG SCH (08:10)
[2022-09-03] MEDS: BALSAM PERU/CASTOR OIL 60 GM OINT...G. TP SCH (08:10)
[2022-09-03 09:47] LABS: ANISOCYTOSIS MODERATE; HYPOCHROMASIA MODERATE; PLATELET ESTIMATE ADEQUATE; PLATELET MORPHOLOGY COMMENT NORMAL; POLYCHROMASIA FEW; RBC MORPHOLOGY COMMENT ABNORMAL
[2022-09-03] MEDS: ALBUTEROL SULF 0.083% NEB SOLN 3 ML NEB NEB PRN (11:10)
[2022-09-03] MEDS ORDERED: EPINEPHRINE HCL SYRINGE ONE (13:02)
[2022-09-03] MEDS ORDERED: SUCCINYLCHOLINE CHLORIDE 20 MG/ML 10ML VIAL ONE (13:03)
[2022-09-03 17:24] LABS: ABG HCO3 23 mmol/L (22-26); ABG PCO2 39 mmHg (35-45); ABG PH 7.37 (7.35-7.45); ABG PO2 156 mmHg (80-105); ABG TCO2 24
[2022-09-03] MEDS: DEXMEDETOMIDINE 400MCG/NS100ML 100 ML IV PRN ×3 (18:35→23:46)
[2022-09-03] MEDS: ATORVASTATIN 40 MG TAB PO SCH (21:00)
[2022-09-04] VITALS (46 sets, daily range): BP systolic 112–145; BP diastolic 77–100; PULSE 26–125; RESP 0–25; TEMP 97.4–98.3; O2SAT 99–100
[2022-09-04] MEDS: DEXMEDETOMIDINE 400MCG/NS100ML 100 ML IV PRN ×8 (00:49→23:02)
[2022-09-04] MEDS: MIDODRINE HCL 5 MG TABLET PO SCH ×3 (05:41→20:56)
[2022-09-04] MEDS: SUCRALFATE 1 GM/10 ML SUSP NG SCH ×4 (05:41→23:02)
[2022-09-04] MEDS: METOCLOPRAMIDE HCL 10 MG/2ML VIAL IV SCH ×4 (05:41→23:02)
[2022-09-04] MEDS: INSULIN LISPRO 100 UNIT/1 ML 3ML VIAL SQ SCH ×4 (06:29→23:31)
[2022-09-04 06:55] LABS: BASOPHILS % 0.6 % (0.0-1.0); EOSINOPHILS % 0.6 % (0.0-6.0); HEMATOCRIT 32.9 % (34.2-44.1); HEMOGLOBIN 9.6 g/dL (12.0-16.0); LYMPHOCYTES % 15.9 % (18.0-39.1); MEAN CORPUSCULAR HEMOGLOBIN 26.7 pg (28-32); MEAN CORPUSCULAR HGB CONC 29.2 g/dL (31-35); MEAN CORPUSCULAR VOLUME 91.6 fL (81-99); MONOCYTES # (AUTO) 0.6 (0.2-0.8); MONOCYTES % 9.3 % (4.4-11.3); NEUTROPHILS # (AUTO) 4.6 (2.1-6.9); NEUTROPHILS % 73.1 % (38.7-80.0); PLATELET COUNT 269 x10e3/uL (140-360); RED BLOOD COUNT 3.59 x10e6/uL (3.6-5.1); RED CELL DISTRIBUTION WIDTH 20.9 % (11.7-14.4)
[2022-09-04 07:15] LABS: ALBUMIN 2.5 g/dL (3.5-5.0); ALBUMIN/GLOBULIN RATIO 0.7 (0.8-2.0); ANION GAP 17.7 mmol/L (8-16); CALCIUM 8.5 mg/dL (8.4-10.2); CREATININE, SERUM 3.89 mg/dL (0.57-1.11); POTASSIUM 3.7 mmol/L (3.5-5.1)
[2022-09-04] MEDS: BALSAM PERU/CASTOR OIL 60 GM OINT...G. TP SCH (08:09)
[2022-09-04] MEDS: ASPIRIN 81 MG CHEW TAB NG SCH (08:09)
[2022-09-04] MEDS: AMIODARONE HCL 200 MG TAB PO SCH ×2 (08:09→17:17)
[2022-09-04] MEDS: LORAZEPAM INJ 2 MG/ML VIAL IV PRN (08:47)
[2022-09-04] MEDS ORDERED: HEPARIN SOD (PORCINE) 1000 UNIT/ML SDV ONE (19:15)
[2022-09-04 19:52] LABS: INR 1.21; PROTHROMBIN TIME 15.8 seconds (11.9-14.5)
[2022-09-04] MEDS: ATORVASTATIN 40 MG TAB PO SCH (20:56)
[2022-09-05] VITALS (49 sets, daily range): BP systolic 71–151; BP diastolic 42–97; PULSE 37–123; RESP 0–22; TEMP 97.7–98.4; O2SAT 99–100
[2022-09-05] MEDS: LORAZEPAM INJ 2 MG/ML VIAL IV PRN (00:11)
[2022-09-05] MEDS: DEXMEDETOMIDINE 400MCG/NS100ML 100 ML IV PRN ×7 (01:39→23:03)
[2022-09-05] MEDS: METOCLOPRAMIDE HCL 10 MG/2ML VIAL IV SCH ×3 (04:41→17:22)
[2022-09-05] MEDS: MIDODRINE HCL 5 MG TABLET PO SCH ×3 (06:00→21:49)
[2022-09-05] MEDS: SUCRALFATE 1 GM/10 ML SUSP NG SCH ×3 (06:00→17:21)
[2022-09-05] MEDS: INSULIN LISPRO 100 UNIT/1 ML 3ML VIAL SQ SCH ×3 (06:25→18:00)
[2022-09-05] MEDS ORDERED: HEPARIN SOD (PORCINE) 1000 UNIT/ML SDV IV PRN (06:30)
[2022-09-05 06:45] LABS: BASOPHILS # (AUTO) 0.1 (0.0-0.1); EOSINOPHILS # (AUTO) 0.2 (0.0-0.4); EOSINOPHILS % 2.3 % (0.0-6.0); HEMATOCRIT 33.4 % (34.2-44.1); LYMPHOCYTES # (AUTO) 1.2 (1.0-3.2); MEAN CORPUSCULAR HEMOGLOBIN 26.5 pg (28-32); MEAN CORPUSCULAR HGB CONC 29.9 g/dL (31-35); MEAN CORPUSCULAR VOLUME 88.6 fL (81-99); MONOCYTES # (AUTO) 0.4 (0.2-0.8); MONOCYTES % 5.9 % (4.4-11.3); NEUTROPHILS # (AUTO) 5.4 (2.1-6.9); NEUTROPHILS % 74.1 % (38.7-80.0); PLATELET COUNT 273 x10e3/uL (140-360); RED BLOOD COUNT 3.77 x10e6/uL (3.6-5.1); RED CELL DISTRIBUTION WIDTH 20.6 % (11.7-14.4)
[2022-09-05 07:13] LABS: ALBUMIN 2.4 g/dL (3.5-5.0); ALBUMIN/GLOBULIN RATIO 0.6 (0.8-2.0); ANION GAP 16.6 mmol/L (8-16); CALCIUM 8.5 mg/dL (8.4-10.2); CREATININE, SERUM 3.14 mg/dL (0.57-1.11); POTASSIUM 3.6 mmol/L (3.5-5.1)
[2022-09-05] MEDS ORDERED: LORAZEPAM INJ 2 MG/ML VIAL IV ONE (08:00)
[2022-09-05] MEDS: ASPIRIN 81 MG CHEW TAB NG SCH (09:00)
[2022-09-05] MEDS: BALSAM PERU/CASTOR OIL 60 GM OINT...G. TP SCH (09:00)
[2022-09-05] MEDS: AMIODARONE HCL 200 MG TAB PO SCH ×2 (09:48→17:00)
[2022-09-05] MEDS ORDERED: ROCURONIUM BROMIDE 10 MG/ML 5ML VIAL IV ONE (12:33)
[2022-09-05] MEDS ORDERED: SEVOFLURANE INHAL SOLN 250 ML PEN BTL ONE (12:33)
[2022-09-05] MEDS ORDERED: POVIDONE IODINE 0.05% 0.05 % ML PO ONE (12:33)
[2022-09-05] MEDS ORDERED: FENTANYL CITRATE/PF 100MCG/2 ML INJ ONE (12:34)
[2022-09-05] MEDS ORDERED: BUPIVACAINE 0.5%/EPI 30 ML SDV INJ ONE (14:11)
[2022-09-05] MEDS ORDERED: LEVOFLOXACIN 500MG/D5W 100ML 100 ML IV ONE (15:19)
[2022-09-05] MEDS ORDERED: SUGAMMADEX SODIUM 200 MG/2 ML VIAL IV ONE (15:55)
[2022-09-05] MEDS ORDERED: SODIUM CHLORIDE 0.9% 1000ML 1,000 ML IV ONE (16:30)
[2022-09-05] MEDS: NOREPINEPHRINE 8 MG/D5W 250 ML 250 ML IV SCH (16:39)
[2022-09-05] MEDS ORDERED: AMIODARONE 900MG 500 ML IV SCH (19:00)
[2022-09-05] MEDS: ATORVASTATIN 40 MG TAB PO SCH (21:00)
[2022-09-06] VITALS (73 sets, daily range): BP systolic 60–153; BP diastolic 25–141; PULSE 54–121; RESP 8–31; TEMP 97.8–99.2; O2SAT 98–100
[2022-09-06] MEDS: METOCLOPRAMIDE HCL 10 MG/2ML VIAL IV SCH ×4 (00:12→19:05)
[2022-09-06] MEDS: INSULIN LISPRO 100 UNIT/1 ML 3ML VIAL SQ SCH ×4 (00:52→18:00)
[2022-09-06] MEDS: DEXMEDETOMIDINE 400MCG/NS100ML 100 ML IV PRN ×3 (01:53→07:42)
[2022-09-06] MEDS: LORAZEPAM INJ 2 MG/ML VIAL IV PRN (03:42)
[2022-09-06] MEDS: MIDODRINE HCL 5 MG TABLET PO SCH ×3 (06:00→22:11)
[2022-09-06] MEDS: SUCRALFATE 1 GM/10 ML SUSP NG SCH ×5 (06:00→19:05)
[2022-09-06 08:09] LABS: BASOPHILS % 0.4 % (0.0-1.0); EOSINOPHILS # (AUTO) 0.1 (0.0-0.4); EOSINOPHILS % 1.3 % (0.0-6.0); HEMATOCRIT 32.8 % (34.2-44.1); HEMOGLOBIN 9.7 g/dL (12.0-16.0); LYMPHOCYTES # (AUTO) 0.8 (1.0-3.2); LYMPHOCYTES % 8.1 % (18.0-39.1); MEAN CORPUSCULAR HEMOGLOBIN 26.5 pg (28-32); MEAN CORPUSCULAR HGB CONC 29.6 g/dL (31-35); MEAN CORPUSCULAR VOLUME 89.6 fL (81-99); MONOCYTES # (AUTO) 0.4 (0.2-0.8); MONOCYTES % 4.6 % (4.4-11.3); NEUTROPHILS # (AUTO) 8.2 (2.1-6.9); NEUTROPHILS % 85.1 % (38.7-80.0); PLATELET COUNT 257 x10e3/uL (140-360); RED BLOOD COUNT 3.66 x10e6/uL (3.6-5.1); RED CELL DISTRIBUTION WIDTH 20.8 % (11.7-14.4)
[2022-09-06 08:41] LABS: ALBUMIN 2.2 g/dL (3.5-5.0); ALBUMIN/GLOBULIN RATIO 0.6 (0.8-2.0); ANION GAP 13.5 mmol/L (8-16); CALCIUM 8.2 mg/dL (8.4-10.2); CREATININE, SERUM 3.44 mg/dL (0.57-1.11); POTASSIUM 3.5 mmol/L (3.5-5.1)
[2022-09-06] MEDS: ASPIRIN 81 MG CHEW TAB NG SCH (09:00)
[2022-09-06] MEDS: AMIODARONE HCL 200 MG TAB PO SCH (09:00)
[2022-09-06] MEDS: BALSAM PERU/CASTOR OIL 60 GM OINT...G. TP SCH (13:08)
[2022-09-06] MEDS ORDERED: HEPARIN SOD (PORCINE) 1000 UNIT/ML 10ML MDV INJ ONE (18:30)
[2022-09-06] MEDS ORDERED: AMIODARONE 900MG 900 MG in Premix Bag 1 BAG IV ONE (19:00)
[2022-09-06] MEDS: ATORVASTATIN 40 MG TAB PO SCH (22:11)
[2022-09-06] MEDS: NOREPINEPHRINE 8 MG/D5W 250 ML 250 ML IV SCH (22:13)
[2022-09-06] MEDS ORDERED: AMIODARONE 900MG 500 ML IV ONE (22:24)
[2022-09-07] VITALS (59 sets, daily range): BP systolic 85–145; BP diastolic 30–123; PULSE 73–117; RESP 2–27; TEMP 98.5–99.3; O2SAT 91–100
[2022-09-07] MEDS: SUCRALFATE 1 GM/10 ML SUSP NG SCH ×5 (00:56→23:45)
[2022-09-07] MEDS: METOCLOPRAMIDE HCL 10 MG/2ML VIAL IV SCH ×5 (00:56→23:50)
[2022-09-07] MEDS: INSULIN LISPRO 100 UNIT/1 ML 3ML VIAL SQ SCH ×5 (00:58→23:47)
[2022-09-07] MEDS: LORAZEPAM INJ 2 MG/ML VIAL IV PRN (01:10)
[2022-09-07] MEDS: MIDODRINE HCL 5 MG TABLET PO SCH ×3 (06:08→21:31)
[2022-09-07 06:41] LABS: BASOPHILS % 0.3 % (0.0-1.0); HEMOGLOBIN 8.3 g/dL (12.0-16.0); LYMPHOCYTES # (AUTO) 0.7 (1.0-3.2); LYMPHOCYTES % 5.8 % (18.0-39.1); MEAN CORPUSCULAR HEMOGLOBIN 26.3 pg (28-32); MEAN CORPUSCULAR HGB CONC 28.6 g/dL (31-35); MEAN CORPUSCULAR VOLUME 91.8 fL (81-99); MONOCYTES # (AUTO) 0.6 (0.2-0.8); MONOCYTES % 4.7 % (4.4-11.3); NEUTROPHILS # (AUTO) 10.7 (2.1-6.9); NEUTROPHILS % 88.6 % (38.7-80.0); PLATELET COUNT 264 x10e3/uL (140-360); RED BLOOD COUNT 3.16 x10e6/uL (3.6-5.1); RED CELL DISTRIBUTION WIDTH 20.5 % (11.7-14.4)
[2022-09-07 07:04] LABS: ALBUMIN 2.6 g/dL (3.5-5.0); ALBUMIN/GLOBULIN RATIO 0.7 (0.8-2.0); ANION GAP 20.5 mmol/L (8-16); CALCIUM 8.3 mg/dL (8.4-10.2); CREATININE, SERUM 2.79 mg/dL (0.57-1.11); POTASSIUM 3.5 mmol/L (3.5-5.1)
[2022-09-07] MEDS: IPRATROPIUM BROMIDE 0.02% 2.5 ML NEB INH PRN ×5 (07:46→23:35)
[2022-09-07] MEDS: ALBUTEROL SULF 0.083% NEB SOLN 3 ML NEB NEB PRN ×5 (07:48→23:35)
[2022-09-07] MEDS: ASPIRIN 81 MG CHEW TAB NG SCH (09:01)
[2022-09-07] MEDS: BALSAM PERU/CASTOR OIL 60 GM OINT...G. TP SCH (09:01)
[2022-09-07] MEDS: NOREPINEPHRINE 8 MG/D5W 250 ML 250 ML IV SCH (15:00)
[2022-09-07] MEDS: ATORVASTATIN 40 MG TAB PO SCH (21:31)
[2022-09-07] MEDS ORDERED: DIPHENOXYLATE/ATROPINE TAB PO ONE (23:15)
[2022-09-07] MEDS ORDERED: LOPERAMIDE HCL 2 MG CAP PO ONE (23:30)
[2022-09-08] VITALS (40 sets, daily range): BP systolic 86–153; BP diastolic 55–129; PULSE 98–110; RESP 8–25; TEMP 97.7–98.9; O2SAT 88–100
[2022-09-08] MEDS ORDERED: AMIODARONE 900MG 500 ML IV ONE (02:46)
[2022-09-08] MEDS: METOCLOPRAMIDE HCL 10 MG/2ML VIAL IV SCH ×3 (06:00→17:34)
[2022-09-08] MEDS: MIDODRINE HCL 5 MG TABLET PO SCH ×3 (06:06→21:28)
[2022-09-08] MEDS: SUCRALFATE 1 GM/10 ML SUSP NG SCH ×3 (06:06→17:34)
[2022-09-08] MEDS: INSULIN LISPRO 100 UNIT/1 ML 3ML VIAL SQ SCH ×3 (06:09→17:37)
[2022-09-08] MEDS: ALBUTEROL SULF 0.083% NEB SOLN 3 ML NEB NEB PRN (06:30)
[2022-09-08] MEDS: IPRATROPIUM BROMIDE 0.02% 2.5 ML NEB INH PRN (06:30)
[2022-09-08 06:38] LABS: BASOPHILS % 0.2 % (0.0-1.0); EOSINOPHILS % 0.1 % (0.0-6.0); HEMATOCRIT 29.1 % (34.2-44.1); HEMOGLOBIN 8.5 g/dL (12.0-16.0); LYMPHOCYTES # (AUTO) 0.8 (1.0-3.2); LYMPHOCYTES % 6.4 % (18.0-39.1); MEAN CORPUSCULAR HEMOGLOBIN 26.2 pg (28-32); MEAN CORPUSCULAR HGB CONC 29.2 g/dL (31-35); MEAN CORPUSCULAR VOLUME 89.5 fL (81-99); MONOCYTES # (AUTO) 0.5 (0.2-0.8); MONOCYTES % 4.6 % (4.4-11.3); NEUTROPHILS # (AUTO) 10.4 (2.1-6.9); PLATELET COUNT 240 x10e3/uL (140-360); RED BLOOD COUNT 3.25 x10e6/uL (3.6-5.1); RED CELL DISTRIBUTION WIDTH 20.4 % (11.7-14.4)
[2022-09-08 07:09] LABS: ALBUMIN 2.4 g/dL (3.5-5.0); ALBUMIN/GLOBULIN RATIO 0.7 (0.8-2.0); ANION GAP 16.5 mmol/L (8-16); CALCIUM 8.2 mg/dL (8.4-10.2); CREATININE, SERUM 3.12 mg/dL (0.57-1.11); POTASSIUM 3.5 mmol/L (3.5-5.1)
[2022-09-08] MEDS ORDERED: DEXMEDETOMIDINE 400MCG/NS100ML 100 ML IV PRN (09:15)
[2022-09-08] MEDS: ASPIRIN 81 MG CHEW TAB NG SCH (09:56)
[2022-09-08] MEDS: BALSAM PERU/CASTOR OIL 60 GM OINT...G. TP SCH (09:56)
[2022-09-08] MEDS: NOREPINEPHRINE 8 MG/D5W 250 ML 250 ML IV SCH (14:07)
[2022-09-08] MEDS: ATORVASTATIN 40 MG TAB PO SCH (21:29)
[2022-09-09] VITALS (35 sets, daily range): BP systolic 98–147; BP diastolic 63–107; PULSE 28–116; RESP 12–26; TEMP 97.7–99.1; O2SAT 88–100
[2022-09-09] MEDS: SUCRALFATE 1 GM/10 ML SUSP NG SCH ×5 (00:03→23:40)
[2022-09-09] MEDS: INSULIN LISPRO 100 UNIT/1 ML 3ML VIAL SQ SCH ×5 (00:07→23:42)
[2022-09-09] MEDS: LORAZEPAM INJ 2 MG/ML VIAL IV PRN (02:17)
[2022-09-09] MEDS ORDERED: LOPERAMIDE HCL 2 MG CAP PO ONE (04:30)
[2022-09-09] MEDS: MIDODRINE HCL 5 MG TABLET PO SCH ×3 (05:05→21:19)
[2022-09-09] MEDS: AMIODARONE 900MG 500 ML IV SCH (05:05)
[2022-09-09] MEDS: METOCLOPRAMIDE HCL 10 MG/2ML VIAL IV SCH ×4 (05:05→17:23)
[2022-09-09 06:28] LABS: BASOPHILS % 0.4 % (0.0-1.0); EOSINOPHILS # (AUTO) 0.1 (0.0-0.4); HEMOGLOBIN 8.5 g/dL (12.0-16.0); LYMPHOCYTES # (AUTO) 1.1 (1.0-3.2); MEAN CORPUSCULAR HEMOGLOBIN 26.2 pg (28-32); MEAN CORPUSCULAR HGB CONC 29.3 g/dL (31-35); MEAN CORPUSCULAR VOLUME 89.5 fL (81-99); MONOCYTES # (AUTO) 0.5 (0.2-0.8); MONOCYTES % 4.7 % (4.4-11.3); NEUTROPHILS # (AUTO) 9.3 (2.1-6.9); NEUTROPHILS % 83.3 % (38.7-80.0); PLATELET COUNT 250 x10e3/uL (140-360); RED BLOOD COUNT 3.24 x10e6/uL (3.6-5.1); RED CELL DISTRIBUTION WIDTH 20.1 % (11.7-14.4)
[2022-09-09 06:52] LABS: ALBUMIN 2.3 g/dL (3.5-5.0); ALBUMIN/GLOBULIN RATIO 0.6 (0.8-2.0); ANION GAP 16.4 mmol/L (8-16); CALCIUM 8.3 mg/dL (8.4-10.2); CREATININE, SERUM 3.2 mg/dL (0.57-1.11); POTASSIUM 3.4 mmol/L (3.5-5.1)
[2022-09-09] MEDS: ASPIRIN 81 MG CHEW TAB NG SCH (09:06)
[2022-09-09] MEDS: BALSAM PERU/CASTOR OIL 60 GM OINT...G. TP SCH (09:06)
[2022-09-09] MEDS: NOREPINEPHRINE 8 MG/D5W 250 ML 250 ML IV SCH (11:05)
[2022-09-09] MEDS ORDERED: POTASSIUM CHLORIDE 20 MEQ TAB CR PO ONE (18:00)
[2022-09-09] MEDS: ATORVASTATIN 40 MG TAB PO SCH (21:19)
[2022-09-10] VITALS (38 sets, daily range): BP systolic 82–122; BP diastolic 42–89; PULSE 45–110; RESP 0–32; TEMP 98–98.7; O2SAT 93–100
[2022-09-10] MEDS: LORAZEPAM INJ 2 MG/ML VIAL IV PRN (00:18)
[2022-09-10] MEDS ORDERED: LOPERAMIDE HCL 2 MG CAP PO ONE (04:00)
[2022-09-10] MEDS: METOCLOPRAMIDE HCL 10 MG/2ML VIAL IV SCH ×4 (05:23→16:55)
[2022-09-10] MEDS: SUCRALFATE 1 GM/10 ML SUSP NG SCH ×3 (05:23→16:55)
[2022-09-10] MEDS: MIDODRINE HCL 5 MG TABLET PO SCH ×3 (05:24→22:48)
[2022-09-10] MEDS: INSULIN LISPRO 100 UNIT/1 ML 3ML VIAL SQ SCH ×3 (05:47→18:17)
[2022-09-10 06:18] LABS: BASOPHILS % 0.3 % (0.0-1.0); EOSINOPHILS # (AUTO) 0.1 (0.0-0.4); EOSINOPHILS % 1.2 % (0.0-6.0); HEMOGLOBIN 8.4 g/dL (12.0-16.0); LYMPHOCYTES # (AUTO) 0.9 (1.0-3.2); LYMPHOCYTES % 9.8 % (18.0-39.1); MEAN CORPUSCULAR HEMOGLOBIN 25.8 pg (28-32); MEAN CORPUSCULAR VOLUME 89.2 fL (81-99); MONOCYTES # (AUTO) 0.6 (0.2-0.8); MONOCYTES % 6.9 % (4.4-11.3); NEUTROPHILS # (AUTO) 7.2 (2.1-6.9); NEUTROPHILS % 81.1 % (38.7-80.0); PLATELET COUNT 221 x10e3/uL (140-360); RED BLOOD COUNT 3.25 x10e6/uL (3.6-5.1); RED CELL DISTRIBUTION WIDTH 19.9 % (11.7-14.4)
[2022-09-10 06:44] LABS: ALBUMIN 2.4 g/dL (3.5-5.0); ALBUMIN/GLOBULIN RATIO 0.6 (0.8-2.0); ANION GAP 12.4 mmol/L (8-16); CALCIUM 8.3 mg/dL (8.4-10.2); CREATININE, SERUM 2.69 mg/dL (0.57-1.11); POTASSIUM 3.4 mmol/L (3.5-5.1)
[2022-09-10] MEDS: ASPIRIN 81 MG CHEW TAB NG SCH (09:37)
[2022-09-10] MEDS: AMIODARONE 900MG 500 ML IV SCH (12:19)
[2022-09-10] MEDS: BALSAM PERU/CASTOR OIL 60 GM OINT...G. TP SCH (16:55)
[2022-09-10] MEDS ORDERED: POTASSIUM CHLORIDE 20MEQ/100ML 200 ML IV ONE (17:30)
[2022-09-10] MEDS: ATORVASTATIN 40 MG TAB PO SCH (22:48)
[2022-09-11] VITALS (33 sets, daily range): BP systolic 83–125; BP diastolic 42–108; PULSE 93–109; RESP 7–26; TEMP 97.8–98.6; O2SAT 94–100
[2022-09-11] MEDS: SUCRALFATE 1 GM/10 ML SUSP NG SCH ×4 (00:41→17:48)
[2022-09-11] MEDS: INSULIN LISPRO 100 UNIT/1 ML 3ML VIAL SQ SCH ×4 (00:42→17:49)
[2022-09-11] MEDS: METOCLOPRAMIDE HCL 10 MG/2ML VIAL IV SCH ×4 (06:00→17:48)
[2022-09-11] MEDS: MIDODRINE HCL 5 MG TABLET PO SCH ×3 (06:19→20:07)
[2022-09-11] MEDS ORDERED: NOREPINEPHRINE 8 MG/D5W 250 ML 250 ML IV PRN (08:45)
[2022-09-11] MEDS: ASPIRIN 81 MG CHEW TAB NG SCH (10:39)
[2022-09-11] MEDS: ACETAMINOPHEN 325 MG/10 ML UDC NG PRN (10:39)
[2022-09-11] MEDS: BALSAM PERU/CASTOR OIL 60 GM OINT...G. TP SCH (10:41)
[2022-09-11 10:46] LABS: BASOPHILS % 0.5 % (0.0-1.0); EOSINOPHILS # (AUTO) 0.1 (0.0-0.4); EOSINOPHILS % 1.1 % (0.0-6.0); HEMATOCRIT 27.5 % (34.2-44.1); HEMOGLOBIN 7.9 g/dL (12.0-16.0); LYMPHOCYTES # (AUTO) 0.9 (1.0-3.2); LYMPHOCYTES % 10.6 % (18.0-39.1); MEAN CORPUSCULAR HEMOGLOBIN 25.6 pg (28-32); MEAN CORPUSCULAR HGB CONC 28.7 g/dL (31-35); MONOCYTES # (AUTO) 0.7 (0.2-0.8); MONOCYTES % 7.3 % (4.4-11.3); NEUTROPHILS # (AUTO) 7.1 (2.1-6.9); NEUTROPHILS % 79.7 % (38.7-80.0); PLATELET COUNT 246 x10e3/uL (140-360); RED BLOOD COUNT 3.09 x10e6/uL (3.6-5.1); RED CELL DISTRIBUTION WIDTH 19.8 % (11.7-14.4)
[2022-09-11 11:14] LABS: ALBUMIN 2.3 g/dL (3.5-5.0); ALBUMIN/GLOBULIN RATIO 0.6 (0.8-2.0); ANION GAP 12.4 mmol/L (8-16); CALCIUM 8.3 mg/dL (8.4-10.2); CREATININE, SERUM 2.5 mg/dL (0.57-1.11); POTASSIUM 3.4 mmol/L (3.5-5.1)
[2022-09-11] MEDS ORDERED: LORAZEPAM INJ 2 MG/ML VIAL IV ONE (13:10)
[2022-09-11] MEDS: AMIODARONE 900MG 500 ML IV SCH (17:48)
[2022-09-11] MEDS ORDERED: POTASSIUM CHLORIDE 20MEQ/100ML 100 ML IV ONE (19:00)
[2022-09-11] MEDS: ATORVASTATIN 40 MG TAB PO SCH (20:07)
[2022-09-12] VITALS (22 sets, daily range): BP systolic 83–110; BP diastolic 50–78; PULSE 82–107; RESP 15–25; TEMP 97.4–99.2; O2SAT 93–100
[2022-09-12] MEDS: INSULIN LISPRO 100 UNIT/1 ML 3ML VIAL SQ SCH ×3 (00:06→12:14)
[2022-09-12] MEDS: METOCLOPRAMIDE HCL 10 MG/2ML VIAL IV SCH ×4 (00:29→17:28)
[2022-09-12] MEDS: SUCRALFATE 1 GM/10 ML SUSP NG SCH ×4 (00:29→17:28)
[2022-09-12 01:51] LABS: % IRON SATURATION 14 % (15-50); IRON 30 ug/dL (50-170); TOTAL IRON BINDING CAPACITY 213 ug/dL (261-478); TRANSFERRIN 152 mg/dL (180-382)
[2022-09-12] MEDS: MIDODRINE HCL 5 MG TABLET PO SCH ×2 (05:50→15:20)
[2022-09-12 06:48] LABS: BASOPHILS % 0.5 % (0.0-1.0); EOSINOPHILS # (AUTO) 0.2 (0.0-0.4); EOSINOPHILS % 2.4 % (0.0-6.0); HEMATOCRIT 27.8 % (34.2-44.1); HEMOGLOBIN 8.1 g/dL (12.0-16.0); LYMPHOCYTES # (AUTO) 0.9 (1.0-3.2); LYMPHOCYTES % 11.6 % (18.0-39.1); MEAN CORPUSCULAR HEMOGLOBIN 25.9 pg (28-32); MEAN CORPUSCULAR HGB CONC 29.1 g/dL (31-35); MEAN CORPUSCULAR VOLUME 88.8 fL (81-99); MONOCYTES # (AUTO) 0.5 (0.2-0.8); MONOCYTES % 5.8 % (4.4-11.3); NEUTROPHILS # (AUTO) 6.2 (2.1-6.9); NEUTROPHILS % 78.4 % (38.7-80.0); PLATELET COUNT 229 x10e3/uL (140-360); RED BLOOD COUNT 3.13 x10e6/uL (3.6-5.1)
[2022-09-12 07:12] LABS: ALBUMIN 2.4 g/dL (3.5-5.0); ALBUMIN/GLOBULIN RATIO 0.6 (0.8-2.0); ANION GAP 13.6 mmol/L (8-16); CALCIUM 8.3 mg/dL (8.4-10.2); CREATININE, SERUM 2.28 mg/dL (0.57-1.11); POTASSIUM 3.6 mmol/L (3.5-5.1)
[2022-09-12] MEDS: ASPIRIN 81 MG CHEW TAB NG SCH (09:00)
[2022-09-12] MEDS ORDERED: MUPIROCIN 2% OINT 22 GM TUBE TOP SCH (09:00)
[2022-09-12] MEDS: BALSAM PERU/CASTOR OIL 60 GM OINT...G. TP SCH (12:12)
[2022-09-12] MEDS ORDERED: AMIODARONE HCL 200 MG TAB PO SCH (17:00)
[2022-09-13] MEDS ORDERED: APIXAB 2.5 MG TABLET PO SCH (09:00)
== END 2022-09-12 19:33 | DRG 4 ==
LOC: ER 16:52 → ERHOLD 20:16 → MED/SURG3 21:36 → ICU 08-17 16:10 → OBSVTOIN 08-18 08:44
PROVIDERS: ADMIT Internal Medicine; ATTEND Internal Medicine
PROC: 02HV33Z Insertion of Infusion Device into Superior Vena Cava, Percutaneous Approach (ICD-10-PCS; 2022-08-17)
PROC: B548ZZA Ultrasonography of Superior Vena Cava, Guidance (ICD-10-PCS; 2022-08-17)
PROC: XW043E5 Introduction of Remdesivir Anti-infective into Central Vein, Percutaneous Approach, New Technology Group 5 (ICD-10-PCS; 2022-08-18)
PROC: 5A1955Z Respiratory Ventilation, Greater than 96 Consecutive Hours (ICD-10-PCS; 2022-08-28)
PROC: 0BH17EZ Insertion of Endotracheal Airway into Trachea, Via Natural or Artificial Opening (ICD-10-PCS; 2022-08-28)
PROC: 4A023N7 Measurement of Cardiac Sampling and Pressure, Left Heart, Percutaneous Approach (ICD-10-PCS; 2022-09-01)
PROC: B2111ZZ Fluoroscopy of Multiple Coronary Arteries using Low Osmolar Contrast (ICD-10-PCS; 2022-09-01)
PROC: B2151ZZ Fluoroscopy of Left Heart using Low Osmolar Contrast (ICD-10-PCS; 2022-09-01)
PROC: 0BH17EZ Insertion of Endotracheal Airway into Trachea, Via Natural or Artificial Opening (ICD-10-PCS; 2022-09-01)
PROC: 5A1955Z Respiratory Ventilation, Greater than 96 Consecutive Hours (ICD-10-PCS; 2022-09-01)
PROC: 3E0G76Z Introduction of Nutritional Substance into Upper GI, Via Natural or Artificial Opening (ICD-10-PCS; 2022-09-05)
PROC: 0DH63UZ Insertion of Feeding Device into Stomach, Percutaneous Approach (ICD-10-PCS; 2022-09-05)
PROC: 0B113Z4 Bypass Trachea to Cutaneous, Percutaneous Approach (ICD-10-PCS; principal; 2022-09-05 15:00)
DX: U07.1 COVID-19 (principal); G93.41 Metabolic encephalopathy; J12.82 Pneumonia due to coronavirus disease 2019; R57.0 Cardiogenic shock; I46.9 Cardiac arrest, cause unspecified; N18.6 End stage renal disease; J96.01 Acute respiratory failure with hypoxia; J69.0 Pneumonitis due to inhalation of food and vomit; I21.A1 Myocardial infarction type 2; Z68.41 Body mass index [BMI] 40.0-44.9, adult; I13.2 Hypertensive heart and chronic kidney disease with heart failure and with stage 5 chronic kidney disease, or end stage renal disease; I50.22 Chronic systolic (congestive) heart failure; K92.2 Gastrointestinal hemorrhage, unspecified; D62 Acute posthemorrhagic anemia; I43 Cardiomyopathy in diseases classified elsewhere; I48.92 Unspecified atrial flutter; E66.01 Morbid (severe) obesity due to excess calories; Z99.3 Dependence on wheelchair; Z74.01 Bed confinement status; I25.10 Atherosclerotic heart disease of native coronary artery without angina pectoris; I49.5 Sick sinus syndrome; Z79.01 Long term (current) use of anticoagulants; Z99.2 Dependence on renal dialysis; I48.0 Paroxysmal atrial fibrillation; D50.9 Iron deficiency anemia, unspecified; E11.22 Type 2 diabetes mellitus with diabetic chronic kidney disease; R53.81 Other malaise; G62.9 Polyneuropathy, unspecified; E87.6 Hypokalemia
CPT/HCPCS: 0223U; 31500; 36415; 36600; 43246; 71045; 74018; 76937; 80048; 80053; 82140; 82550; 82553; 82607; 82746; 82805; 82948; 83540; 83605; 83735; 83880; 84100; 84443; 84466; 84484; 85025; 85045; 85610; 85730; 86704; 86705; 86706; 87040; 87070; 87071; 87205; 90962; 92950; 93005; 93306; 93458; 94002; 94003; 94667; 94669; 94799; 95819; 96372; 99252; 99285; C1887; G0378; J0171; J0248; J0330; J0692; J1644; J1756; J1940; J1956; J2001; J2060; J2185; J2353; J2405; J2543; J2765; J2920; J3370; J3411; J3430; J3480; J7030; J7050; J7070; Q9967